=== PATIENT | male | born 1970 | race Hispanic/Latino ===

== ENCOUNTER 2017-01-19 12:13 | Observation (INO) | payer MEDICAID, OTHER ==
[2017-01-19 13:45] LABS: BASO % 0.2 % (0.0-2.0); EOS # 0.2 K/uL (0.0-0.7); EOS % 3.1 % (0.0-4.0); HEMATOCRIT 40.8 % (35.0-51.0); LYMPH # 1.6 K/uL (1.0-4.3); LYMPH % 27.7 % (20.0-40.0); MEAN CORPUSCULAR HEMOGLOBIN 31.1 pg (27.0-31.0); MEAN CORPUSCULAR HGB CONC 33.3 g/dL (33.0-37.0); MEAN PLATELET VOLUME 8.1 fl (7.2-11.7); MONO # 0.6 K/uL (0.0-0.8); MONO % 10.3 % (0.0-10.0); NEUT # 3.4 K/uL (1.8-7.0); NEUT % 58.7 % (50.0-75.0); RED CELL DISTRIBUTION WIDTH 13.9 % (11.5-14.5); WHITE BLOOD COUNT 5.7 K/uL (4.8-10.8)
[2017-01-19 13:55] LABS: MEAN CELL VOLUME 93.4 fl (80.0-94.0)
[2017-01-19 13:57] LABS: PARTIAL THROMBOPLASTIN TIME 24.6 Seconds (25.6-37.1)
[2017-01-19 13:59] LABS: ALB/GLOB RATIO 1.4 (1.0-2.1); ALKALINE PHOSPHATASE 133 U/L (38-126); ALT/SGPT 63 U/L (21-72); AST/SGOT 40 U/L (17-59); BILIRUBIN,TOTAL 0.5 mg/dl (0.2-1.3); BLOOD UREA NITROGEN 18 mg/dl (9-20); CALCIUM 9.1 mg/dL (8.4-10.2); CARBON DIOXIDE 26 mmol/L (22-30); CHLORIDE 107 mmol/L (98-107); GFR AFRICAN-AMERICAN > 60; GLUCOSE,RANDOM 94 mg/dL (75-110); POTASSIUM 3.9 MMOL/L (3.6-5.0); SODIUM 141 mmol/l (132-148); TOTAL PROTEIN 7.4 G/DL (6.3-8.2)
--- NOTE | 2017-01-19 16:19 | RAD ---
HISTORY: chest pain COMPARISON: Comparison chest dated 08/17/2014. Comparison also made with CT scan abdomen pelvis 11/10/2014 which imaged both lung bases TECHNIQUE: Chest PA and lateral FINDINGS: LUNGS: Mild linear atelectasis/scarring changes left mid to lower lung field and right lung base. PLEURA: No significant pleural effusion identified. No pneumothorax apparent. CARDIOVASCULAR: Normal. OSSEOUS STRUCTURES: Old healed fracture deformity left mid clavicle also unchanged. Re- demonstrated are several old healed right-sided rib fracture deformities VISUALIZED UPPER ABDOMEN: Linear calcification along the lateral margin of the splenic capsule on again noted unchanged core spell OTHER FINDINGS: None. IMPRESSION: Mild linear is atelectasis/scarring changes left mid to lower lung field and right lung base
--- NOTE | 2017-01-19 16:28 | ED PDOC ---
Lower Extremity Pain/Injury Time Seen by Provider: 01/19/17 12:35 Chief Complaint (Nursing): Lower Extremity Problem/Injury Chief Complaint (Provider): Chest pain, lower leg edema History Per: Patient History/Exam Limitations: no limitations Onset/Duration Of Symptoms: Days Current Symptoms Are (Timing): Still Present Severity: Moderate Pain Scale Rating Of: 5 Additional Complaint(s): Pt states he was discharged from assisted and was not given prescriptions. Pt states he he now having worsening pain in his lower legs and swelling. PT also reports chest pain. Pt states he thinks he is on something for BP and a water pill but does not know what. Denies SOB. Past Medical History Vital Signs: Last Vital Signs Temp 98.9 F 01/19/17 12:22 Pulse 121 H 01/19/17 12:22 Resp 20 01/19/17 12:22 BP 153/107 H 01/19/17 12:22 Pulse Ox 97 01/19/17 12:22 - Medical History PMH: Asthma, CAD, COPD, Fractures (skull, clavical, bilateral jaw, pelvis), Seizures Denies: Diabetes, Hepatitis, HIV, HTN, Chronic Kidney Disease, Sexually Transmitted Disease - Surgical History Surgical History: CABG - Family History Family History: States: Unknown Family Hx - Home Medications Home Medications: Ambulatory Orders Medication Instructions Recorded Phenytoin [Dilantin] 300 mg PO TID 12/29/15 - Allergies Allergies/Adverse Reactions: Allergies Allergy/AdvReac Type Severity Reaction Status Date / Time No Known Allergies Allergy Verified 01/19/17 12:21 Review of Systems ROS Statement: Except As Marked, All Systems Reviewed And Found Negative Cardiovascular: Positive for: Chest Pain Musculoskeletal: Positive for: Other (Lower leg edema ) Neurological: Positive for: Dizziness Physical Exam - Reviewed Nursing Documentation Reviewed: Yes Vital Signs Reviewed: Yes - Physical Exam Appears: Positive for: Well, Non-toxic, No Acute Distress Head Exam: Positive for: ATRAUMATIC, NORMAL INSPECTION, NORMOCEPHALIC Skin: Positive for: Warm. Negative for: Normal Color (Linear scar on chest ) Eye Exam: Positive for: Normal appearance ENT: Positive for: Normal ENT Inspection Neck: Positive for: Normal, Painless ROM Cardiovascular/Chest: Positive for: Regular Rate, Rhythm Respiratory: Positive for: Normal Breath Sounds. Negative for: Accessory Muscle Use, Respiratory Distress Gastrointestinal/Abdominal: Positive for: Normal Exam, Bowel Sounds, Soft Back: Positive for: Normal Inspection Extremity: Positive for: Normal ROM, Swelling (Bilateral edema ) Neurologic/Psych: Positive for: Alert, Oriented - Laboratory Results Result Diagrams: 01/19/17 13:40 01/19/17 13:40 - ECG O2 Sat by Pulse Oximetry: 97 Medical Decision Making Medical Decision Making: Vitals stable at 1630. OBS for chest pain Disposition - Clinical Impression Clinical Impression: Chest pain - Patient ED Disposition Is Patient to be Admitted: Yes Counseled Patient/Family Regarding: Diagnosis, Need For Followup - Disposition Disposition: Routine/Home Disposition Time: 16:28 Condition: GOOD - Pt Status Changed To: Hospital Disposition Of: Observation - POA Present On Arrival: None
[2017-01-19 17:30] LABS: RBC URINE 2 /hpf (0-3); URINE BACTERIA RARE (<OCC); URINE BILIRUBIN NEGATIVE (NEGATIVE); URINE BLOOD NEGATIVE (NEGATIVE); URINE COLOR YELLOW (YELLOW); URINE GLUCOSE (UA) NEG (Normal); URINE KETONE NEGATIVE (NEGATIVE); URINE LEUKOCYTE ESTERASE NEG Leu/uL (Negative); URINE PROTEIN NEGATIVE (NEGATIVE); URINE UROBILINOGEN 0.2-1.0 mg/dL (0.2-1.0); WBC URINE 1 /hpf (0-5)
--- NOTE | 2017-01-19 18:23 | CP.PCM.HP ---
History of Present Illness - History of Present Illness History of Present Illness: 46 yo male with history of Seizure recently [facility] from [facility] came in complaining of abdominal pain and leg swelling. He claimed he had a prescription for Dilantin and water pills and by the way he also has this sharp left sided chest pain since he was discharged from [facility]. Denied SOB, fever or chills. Present on Admission - Present on Admission Any Indicators Present on Admission: No History of DVT/PE: No History of Uncontrolled Diabetes: No Urinary Catheter: No Decubitus Ulcer Present: No Review of Systems - Review of Systems All systems: reviewed and no additional remarkable complaints except (aside from those mentioned above, 12 point system review were negative by me) Past Patient History - Tetanus Immunizations Tetanus Immunization: Unknown - Past Medical History & Family History Past Medical History?: Yes Past Family History: Reviewed and not pertinent - Past Social History Smoking Status: Light Smoker < 10 Cigarettes Daily Alcohol: Occasional Home Situation {Lives}: Homeless - CARDIAC Hx Hypertension: No Other/Comment: had open heart surgery for septal defect at 6 yrs of age - PULMONARY Hx Asthma: Yes Hx Chronic Obstructive Pulmonary Disease (COPD): Yes - NEUROLOGICAL Hx Seizures: Yes - HEENT Hx HEENT Problems: No - RENAL Hx Chronic Kidney Disease: No - ENDOCRINE/METABOLIC Hx Endocrine Disorders: No - HEMATOLOGICAL/ONCOLOGICAL Hx Human Immunodeficiency Virus (HIV): No - INTEGUMENTARY Hx Dermatological Problems: No - MUSCULOSKELETAL/RHEUMATOLOGICAL Hx Fractures: Yes (skull, clavical, bilateral jaw, pelvis, right femur) - GASTROINTESTINAL Hx Gastrointestinal Disorders: No - GENITOURINARY/GYNECOLOGICAL Hx Sexually Transmitted Disorders: No - PSYCHIATRIC Hx Psychophysiologic Disorder: Yes Hx Substance Use: No (Marijuana in chart, denies at this time) Other/Comment: ALCOHOL ABUSE. - SURGICAL HISTORY Hx Open Reduction Internal Fixation: Yes Hx Orthopedic Surgery: Yes Other/Comment: open heart surgery at 6yrs of age for septal defect repair - ANESTHESIA Hx Anesthesia: Yes Hx Anesthesia Reactions: No Hx Malignant Hyperthermia: No Meds Allergies/Adverse Reactions: Allergies Allergy/AdvReac Type Severity Reaction Status Date / Time No Known Allergies Allergy Verified 01/19/17 12:21 Physical Exam - Constitutional Appears: No Acute Distress - Head Exam Head Exam: ATRAUMATIC - Eye Exam Eye Exam: absent: Scleral icterus - ENT Exam ENT Exam: Mucous Membranes Moist - Neck Exam Neck exam: Negative for: Meningismus - Respiratory Exam Respiratory Exam: Decreased Breath Sounds. absent: Rhonchi, Wheezes, Respiratory Distress - Cardiovascular Exam Cardiovascular Exam: REGULAR RHYTHM, +S1, +S2 - GI/Abdominal Exam GI & Abdominal Exam: Soft. absent: Tenderness - Rectal Exam Rectal Exam: Deferred - Extremities Exam Extremities exam: Positive for: pedal edema (nonpitting edema of both legs) - Back Exam Back exam: NORMAL INSPECTION - Neurological Exam Neurological exam: Alert, Oriented x3 - Psychiatric Exam Psychiatric exam: Normal Affect - Skin Skin Exam: Dry, Intact Results - Vital Signs Recent Vital Signs: Last Vital Signs Temp 98 F 01/19/17 18:02 Pulse 96 H 01/19/17 18:02 Resp 18 01/19/17 18:02 BP 134/75 01/19/17 18:02 Pulse Ox 99 01/19/17 18:02 - Labs Result Diagrams: 01/19/17 13:40 01/19/17 13:40 Labs: Laboratory Results - last 24 hr 01/19/17 01/19/17 01/19/17 13:40 13:40 13:40 WBC 5.7 RBC 4.37 L Hgb 13.6 Hct 40.8 MCV 93.4 D MCH 31.1 H MCHC 33.3 RDW 13.9 Plt Count 176 MPV 8.1 Neut % (Auto) 58.7 Lymph % (Auto) 27.7 [place] % (Auto) 10.3 H Eos % (Auto) 3.1 Baso % (Auto) 0.2 Neut # 3.4 Lymph # 1.6 [place] # 0.6 Eos # 0.2 Baso # 0.0 PT 11.1 INR 1.1 APTT 24.6 L Sodium 141 Potassium 3.9 Chloride 107 Carbon Dioxide 26 Anion Gap 13 BUN 18 Creatinine 0.8 Est GFR ( Amer) > 60 Est GFR (Non-Af Amer) > 60 Random Glucose 94 Calcium 9.1 Total Bilirubin 0.5 AST 40 ALT 63 Alkaline Phosphatase 133 H D Troponin I < 0.0120 NT-Pro-B Natriuret Pep 62.4 Total Protein 7.4 Albumin 4.3 Globulin 3.2 Albumin/Globulin Ratio 1.4 Urine Color Urine Clarity Urine pH Ur Specific [place] Urine Protein Urine Glucose (UA) Urine Ketones Urine Blood Urine Nitrate Urine Bilirubin Urine Urobilinogen Ur Leukocyte Esterase Urine RBC (Auto) Urine Microscopic WBC Urine Bacteria Hyaline Casts Urine Opiates Screen Urine Methadone Screen Ur Barbiturates Screen Ur Phencyclidine Scrn Ur Amphetamines Screen U Benzodiazepines Scrn U Oth Cocaine Metabols U Cannabinoids Screen 01/19/17 01/19/17 17:05 17:05 WBC RBC Hgb Hct MCV MCH MCHC RDW Plt Count MPV Neut % (Auto) Lymph % (Auto) [place] % (Auto) Eos % (Auto) Baso % (Auto) Neut # Lymph # [place] # Eos # Baso # PT INR APTT Sodium Potassium Chloride Carbon Dioxide Anion Gap BUN Creatinine Est GFR ( Amer) Est GFR (Non-Af Amer) Random Glucose Calcium Total Bilirubin AST ALT Alkaline Phosphatase Troponin I NT-Pro-B Natriuret Pep Total Protein Albumin Globulin Albumin/Globulin Ratio Urine Color Yellow Urine Clarity Slighty-cloudy Urine pH 6.0 Ur Specific [place] 1.028 Urine Protein Negative Urine Glucose (UA) Neg Urine Ketones Negative Urine Blood Negative Urine Nitrate Negative Urine Bilirubin Negative Urine Urobilinogen 0.2-1.0 Ur Leukocyte Esterase Neg Urine RBC (Auto) 2 Urine Microscopic WBC 1 Urine Bacteria Rare Hyaline Casts 0-2 Urine Opiates Screen Negative Urine Methadone Screen Negative Ur Barbiturates Screen Negative Ur Phencyclidine Scrn Negative Ur Amphetamines Screen Negative U Benzodiazepines Scrn Negative U Oth Cocaine Metabols Negative U Cannabinoids Screen Negative Assessment & Plan (1) Chest pain Status: Acute Comment: place on observation in telemetry. serial Troponin and EKG. ASA 81 mg PO. NTG SL prn for chest pain (2) Seizure Status: Acute Comment: seizure precaution. Dilatin 100mg PO TID
[2017-01-20 00:50] VITALS: RESP 18
[2017-01-20 08:01] LABS: BASO % 0.8 % (0.0-2.0); EOS # 0.2 K/uL (0.0-0.7); EOS % 3.8 % (0.0-4.0); HEMATOCRIT 39.7 % (35.0-51.0); LYMPH # 1.8 K/uL (1.0-4.3); LYMPH % 35.7 % (20.0-40.0); MEAN CELL VOLUME 94.8 fl (80.0-94.0); MEAN CORPUSCULAR HEMOGLOBIN 31.4 pg (27.0-31.0); MEAN CORPUSCULAR HGB CONC 33.2 g/dL (33.0-37.0); MEAN PLATELET VOLUME 8.6 fl (7.2-11.7); MONO # 0.5 K/uL (0.0-0.8); MONO % 9.2 % (0.0-10.0); NEUT # 2.5 K/uL (1.8-7.0); NEUT % 50.5 % (50.0-75.0); RED CELL DISTRIBUTION WIDTH 13.7 % (11.5-14.5)
[2017-01-20 08:12] LABS: BLOOD UREA NITROGEN 15 mg/dl (9-20); CALCIUM 8.7 mg/dL (8.4-10.2); CARBON DIOXIDE 27 mmol/L (22-30); CHLORIDE 105 mmol/L (98-107); CHOLESTEROL 186 mg/dL (0-199); GFR AFRICAN-AMERICAN > 60; GLUCOSE,RANDOM 96 mg/dL (75-110); POTASSIUM 4.1 MMOL/L (3.6-5.0); SODIUM 140 mmol/l (132-148)
[2017-01-20 08:43] LABS: THYROID STIMULATING HORMONE 1.23 mIU/ML (0.46-4.68)
[2017-01-20 08:44] VITALS: TEMP 97.9
[2017-01-20] MEDS ORDERED: Enoxaparin 40 mg Syringe SC SCH (09:00)
--- NOTE | 2017-01-20 09:34 | US ---
PROCEDURE: Bilateral lower extremity venous duplex Doppler. HISTORY: leg edema COMPARISON: Comparison made with prior bilateral lower extremity venous Doppler 04/22/2013 TECHNIQUE: Bilateral common femoral, superficial femoral, popliteal and posterior tibial veins were evaluated. Flow was assessed with color Doppler, compressibility, assessment of phasic flow and augmentation response. FINDINGS: COMMON FEMORAL VEIN: Right CFV: Unremarkable. Left CFV: Unremarkable. SUPERFICIAL FEMORAL VEIN: Right SFV: Unremarkable. Left SFV: Unremarkable. POPLITEAL VEIN: Right Popliteal: Unremarkable. Left Popliteal: Unremarkable. POSTERIOR TIBIAL VEIN: Right PTV: Unremarkable. Left PTV: Unremarkable. OTHER FINDINGS: None. IMPRESSION: No evidence of deep venous thrombosis.
--- NOTE | 2017-01-20 10:19 | CARD ---
APPROVED REPORT EKG Measurement Heart [id number] <Conclusion> Sinus tachycardia Left axis deviation Abnormal ECG
[2017-01-20 12:08] VITALS: BP 123/80; PULSE 98; O2SAT 100
--- NOTE | 2017-01-20 14:05 | CP.PCM.DIS ---
Provider - Provider Date of Admission: 01/19/17 18:33 Attending physician: Jn Davis MD Time Spent in preparation of Discharge (in minutes): 30 Hospital Course - Lab Results Lab Results: Most Recent Lab Values WBC 5.0 K/uL (4.8-10.8) 01/20/17 05:30 RBC 4.19 Mil/uL (4.40-5.90) L 01/20/17 05:30 Hgb 13.2 g/dL (12.0-18.0) 01/20/17 05:30 Hct 39.7 % (35.0-51.0) 01/20/17 05:30 MCV 94.8 fl (80.0-94.0) H 01/20/17 05:30 MCH 31.4 pg (27.0-31.0) H 01/20/17 05:30 MCHC 33.2 g/dL (33.0-37.0) 01/20/17 05:30 RDW 13.7 % (11.5-14.5) 01/20/17 05:30 Plt Count 173 K/uL (130-400) 01/20/17 05:30 MPV 8.6 fl (7.2-11.7) 01/20/17 05:30 Neut % (Auto) 50.5 % (50.0-75.0) 01/20/17 05:30 Lymph % (Auto) 35.7 % (20.0-40.0) 01/20/17 05:30 [place] % (Auto) 9.2 % (0.0-10.0) 01/20/17 05:30 Eos % (Auto) 3.8 % (0.0-4.0) 01/20/17 05:30 Baso % (Auto) 0.8 % (0.0-2.0) 01/20/17 05:30 Neut # 2.5 K/uL (1.8-7.0) 01/20/17 05:30 Lymph # 1.8 K/uL (1.0-4.3) 01/20/17 05:30 [place] # 0.5 K/uL (0.0-0.8) 01/20/17 05:30 Eos # 0.2 K/uL (0.0-0.7) 01/20/17 05:30 Baso # 0.0 K/uL (0.0-0.2) 01/20/17 05:30 PT 11.1 Seconds (9.8-13.1) 01/19/17 13:40 INR 1.1 (0.9-1.2) 01/19/17 13:40 APTT 24.6 Seconds (25.6-37.1) L 01/19/17 13:40 Sodium 140 mmol/l (132-148) 01/20/17 05:30 Potassium 4.1 MMOL/L (3.6-5.0) 01/20/17 05:30 Chloride 105 mmol/L (98-107) 01/20/17 05:30 Carbon Dioxide 27 mmol/L (22-30) 01/20/17 05:30 Anion Gap 11 (10-20) 01/20/17 05:30 BUN 15 mg/dl (9-20) 01/20/17 05:30 Creatinine 0.8 mg/dL (0.8-1.5) 01/20/17 05:30 Est GFR ( Amer) > 60 01/20/17 05:30 Est GFR (Non-Af Amer) > 60 01/20/17 05:30 Random Glucose 96 mg/dL (75-110) 01/20/17 05:30 Calcium 8.7 mg/dL (8.4-10.2) 01/20/17 05:30 Total Bilirubin 0.5 mg/dl (0.2-1.3) 01/19/17 13:40 AST 40 U/L (17-59) 01/19/17 13:40 ALT 63 U/L (21-72) 01/19/17 13:40 Alkaline Phosphatase 133 U/L (38-126) H D 01/19/17 13:40 Troponin I < 0.0120 ng/mL (0.00-0.120) 01/20/17 05:30 NT-Pro-B Natriuret Pep 62.4 pg/ml (0-450) 01/19/17 13:40 Total Protein 7.4 G/DL (6.3-8.2) 01/19/17 13:40 Albumin 4.3 g/dL (3.5-5.0) 01/19/17 13:40 Globulin 3.2 gm/dL (2.2-3.9) 01/19/17 13:40 Albumin/Globulin Ratio 1.4 (1.0-2.1) 01/19/17 13:40 Triglycerides 115 mg/DL (0-149) 01/20/17 05:30 Cholesterol 186 mg/dL (0-199) 01/20/17 05:30 LDL Cholesterol Direct 111 mg/dL (0-129) 01/20/17 05:30 HDL Cholesterol 49 MG/DL (30-70) 01/20/17 05:30 TSH 3rd Generation 1.23 mIU/ML (0.46-4.68) 01/20/17 05:30 Urine Color Yellow (YELLOW) 01/19/17 17:05 Urine Clarity Slighty-cloudy (Clear) 01/19/17 17:05 Urine pH 6.0 (5.0-8.0) 01/19/17 17:05 Ur Specific [place] 1.028 (1.003-1.030) 01/19/17 17:05 Urine Protein Negative mg/dL (NEGATIVE) 01/19/17 17:05 Urine Glucose (UA) Neg mg/dL (Normal) 01/19/17 17:05 Urine Ketones Negative mg/dL (NEGATIVE) 01/19/17 17:05 Urine Blood Negative (NEGATIVE) 01/19/17 17:05 Urine Nitrate Negative (NEGATIVE) 01/19/17 17:05 Urine Bilirubin Negative (NEGATIVE) 01/19/17 17:05 Urine Urobilinogen 0.2-1.0 mg/dL (0.2-1.0) 01/19/17 17:05 Ur Leukocyte Esterase Neg Efra/uL (Negative) 01/19/17 17:05 Urine RBC (Auto) 2 /hpf (0-3) 01/19/17 17:05 Urine Microscopic WBC 1 /hpf (0-5) 01/19/17 17:05 Urine Bacteria Rare (<OCC) 01/19/17 17:05 Hyaline Casts 0-2 /hpf (0-2) 01/19/17 17:05 Urine Opiates Screen Negative (NEGATIVE) 01/19/17 17:05 Urine Methadone Screen Negative (NEGATIVE) 01/19/17 17:05 Ur Barbiturates Screen Negative (NEGATIVE) 01/19/17 17:05 Ur Phencyclidine Scrn Negative (NEGATIVE) 01/19/17 17:05 Ur Amphetamines Screen Negative (NEGATIVE) 01/19/17 17:05 U Benzodiazepines Scrn Negative (NEGATIVE) 01/19/17 17:05 U Oth Cocaine Metabols Negative (NEGATIVE) 01/19/17 17:05 U Cannabinoids Screen Negative (NEGATIVE) 01/19/17 17:05 - Hospital Course Hospital Course: 46 yo male with history of Seizure recently [facility] came in complaining of abdominal pain and leg swelling. He claimed he had a prescription for Dilantin and water pills and by the way he also has this sharp left sided chest pain since he was discharged from [facility]. Denied SOB, fever or chills. (1) Chest pain Status: Acute Comment: place on observation in telemetry. serial Troponin and EKG. ASA 81 mg PO. NTG SL prn for chest pain CARDIAC ENZYMES NEGATIVE. EKG NO ACUTE ISCH OR INFARCT. NO ACTIVE CHEST PAIN STABLE TO BE DISCHARGED HOME. (2) Seizure Status: Acute Comment: seizure precaution. Dilatin 100mg PO TID Discharge Exam - Head Exam Head Exam: ATRAUMATIC, NORMOCEPHALIC - Eye Exam Eye Exam: EOMI, Normal appearance, PERRL - ENT Exam ENT Exam: Mucous Membranes Moist, Normal Oropharynx - Neck Exam Neck exam: Full Rom, Normal Inspection - Respiratory Exam Respiratory Exam: Clear to PA & Lateral, NORMAL BREATHING PATTERN - Cardiovascular Exam Cardiovascular Exam: RRR, +S1, +S2 - GI/Abdominal Exam GI & Abdominal Exam: Normal Bowel Sounds, Soft. absent: Organomegaly, Tenderness - Extremities Exam Extremities exam: normal capillary refill, pedal pulses present - Neurological Exam Neurological exam: Alert, Oriented x3 - Psychiatric Exam Psychiatric exam: Normal Affect, Normal Mood - Skin Skin Exam: Dry, Normal Color, Warm Discharge Plan - Discharge Medications Prescriptions: Aspirin [Aspirin Chewable] 81 mg PO DAILY #30 tab Meclizine [Meclizine*] 25 mg PO DAILY #30 tab Phenytoin, Extended [Dilantin] 100 mg PO TID #90 cer - Follow Up Plan Condition: GOOD Disposition: HOME/ ROUTINE
== END 2017-01-20 14:35 | disposition home or self-care (01) ==
LOC: H.ER 12:13 → H.ERHOLD 18:33 → H.TEL 21:07
DX: R07.9 Chest pain, unspecified (principal); J45.909 Unspecified asthma, uncomplicated; J44.9 Chronic obstructive pulmonary disease, unspecified; I25.10 Atherosclerotic heart disease of native coronary artery without angina pectoris; Z59.0 Homelessness; Z95.1 Presence of aortocoronary bypass graft; F17.210 Nicotine dependence, cigarettes, uncomplicated; G40.909 Epilepsy, unspecified, not intractable, without status epilepticus
CPT/HCPCS: 36415; 71020; 80048; 80053; 80061; 80324; 80345; 80346; 80349; 80353; 80358; 80361; 81003; 83880; 83992; 84443; 84484; 85025; 85610; 85730; 87086; 93005; 93970; 99285; G0378; J1650

== ENCOUNTER 2017-01-23 10:46 | Emergency (ER) | payer MEDICAID ==
[2017-01-23 10:50] VITALS: BMI 34.4
[2017-01-23 10:51] VITALS: BP 124/79; RESP 20
[2017-01-23 10:59] VITALS: PULSE 104; TEMP 99; O2SAT 98
--- NOTE | 2017-01-23 11:24 | ED PDOC ---
HPI: General Adult Time Seen by Provider: 01/23/17 11:01 Chief Complaint (Nursing): Pain, Chronic History Per: Patient Additional Complaint(s): Pt. states he was discharged from [facility] ED 3 days ago for chest pain and was dc' d with Rx for Dilantin for his seizures. Pt. states he has been unable to get the medicines but reports that his pharmacy does have the prescription. Of note , pt. is homeless and just got released from incarceration. Offers no other complaints. Pt. is requesting meds to prevent seizure. Past Medical History Reviewed: Historical Data, Nursing Documentation, Vital Signs Vital Signs: Last Vital Signs Temp 99 F 01/23/17 10:55 Pulse 104 H 01/23/17 10:55 Resp 20 01/23/17 10:55 BP 124/79 01/23/17 10:55 Pulse Ox 98 01/23/17 10:55 - Medical History PMH: Asthma, CAD, COPD, Fractures (skull, clavical, bilateral jaw, pelvis, right femur), Seizures Denies: Diabetes, Hepatitis, HIV, HTN, Chronic Kidney Disease, Sexually Transmitted Disease - Surgical History Surgical History: CABG - Family History Family History: States: Unknown Family Hx - Home Medications Home Medications: Ambulatory Orders Medication Instructions Recorded Aspirin [Aspirin Chewable] 81 mg PO DAILY #30 tab 01/20/17 Meclizine [Meclizine*] 25 mg PO DAILY #30 tab 01/20/17 Phenytoin, Extended [Dilantin] 100 mg PO TID #90 cer 01/20/17 - Allergies Allergies/Adverse Reactions: Allergies Allergy/AdvReac Type Severity Reaction Status Date / Time No Known Allergies Allergy Verified 01/23/17 10:53 Review of Systems ROS Statement: Except As Marked, All Systems Reviewed And Found Negative Physical Exam - Physical Exam Appears: Positive for: Well, Non-toxic, No Acute Distress Head Exam: Positive for: ATRAUMATIC, NORMAL INSPECTION, NORMOCEPHALIC Skin: Positive for: Normal Color, Warm. Negative for: Rash Eye Exam: Positive for: Normal appearance Neck: Positive for: Normal, Painless ROM Cardiovascular/Chest: Positive for: Regular Rate, Rhythm Respiratory: Positive for: CNT, Normal Breath Sounds Gastrointestinal/Abdominal: Positive for: Normal Exam, Soft. Negative for: Tenderness Extremity: Positive for: Normal ROM Neurologic/Psych: Positive for: Alert, Oriented - ECG O2 Sat by Pulse Oximetry: 98 - Progress ED Course And Treament: Dilantin 100mg PO ordered. Disposition - Clinical Impression Clinical Impression: Seizure disorder - Patient ED Disposition Is Patient to be Admitted: No - Disposition Referrals: [facility] [Outside] Disposition: Routine/Home Disposition Time: 11:25 Condition: STABLE Instructions: Epilepsy (ED) Forms: LK FREEMAN (Nigerien)
== END 2017-01-23 12:26 | disposition home or self-care (01) ==
LOC: H.ER 10:46
DX: G40.909 Epilepsy, unspecified, not intractable, without status epilepticus (principal)

== ENCOUNTER 2017-01-24 15:07 | Emergency (ER) | payer MEDICAID ==
[2017-01-24 15:07] VITALS: BMI 34.4
[2017-01-24 15:17] VITALS: BP 150/87; PULSE 106; RESP 16; TEMP 98.2; O2SAT 99
== END 2017-01-24 16:21 | disposition left against medical advice (07) ==
LOC: H.ER 15:07
DX: Z02.89 Encounter for other administrative examinations (principal)

== ENCOUNTER 2017-01-31 12:19 | Emergency (ER) | payer MEDICAID ==
[2017-01-31 12:20] VITALS: BMI 34.4
[2017-01-31 12:26] VITALS: RESP 18; TEMP 99; O2SAT 97
[2017-01-31] MEDS ORDERED: Fosphenytoin 100 mg/2 ml Inj IV ONE (12:42)
--- NOTE | 2017-01-31 12:43 | ED PDOC ---
Lower Extremity Pain/Injury Time Seen by Provider: 01/31/17 12:30 Chief Complaint (Nursing): Dizziness/Lightheaded Chief Complaint (Provider): Dizziness/Lightheaded History Per: Patient History/Exam Limitations: no limitations Onset/Duration Of Symptoms: Days (x2 years) Current Symptoms Are (Timing): Still Present Additional Complaint(s): 46 y.o male with a past medical history of seizures, non compliance with medications for a number of weaks, who presents to the emergency department with a complaint of swelling to the lower legs bilaterally x2 years. Denies chest pain, shortness of breath, or fever. Past Medical History Reviewed: Historical Data, Nursing Documentation, Vital Signs Vital Signs: Last Vital Signs Temp 99 F 01/31/17 12:23 Pulse 118 H 01/31/17 12:23 Resp 18 01/31/17 12:23 BP 145/78 01/31/17 12:23 Pulse Ox 97 01/31/17 12:23 - Medical History PMH: Asthma, CAD, COPD, Fractures (skull, clavical, bilateral jaw, pelvis, right femur), Seizures Denies: Diabetes, Hepatitis, HIV, HTN, Chronic Kidney Disease, Sexually Transmitted Disease - Surgical History Surgical History: CABG - Family History Family History: States: Unknown Family Hx - Home Medications Home Medications: Ambulatory Orders Medication Instructions Recorded Aspirin [Aspirin Chewable] 81 mg PO DAILY #30 tab 01/20/17 Meclizine [Meclizine*] 25 mg PO DAILY #30 tab 01/20/17 Phenytoin, Extended [Dilantin] 100 mg PO TID #90 cer 01/20/17 - Allergies Allergies/Adverse Reactions: Allergies Allergy/AdvReac Type Severity Reaction Status Date / Time No Known Allergies Allergy Verified 01/23/17 10:53 Review of Systems ROS Statement: Except As Marked, All Systems Reviewed And Found Negative Constitutional: Negative for: Fever Cardiovascular: Negative for: Chest Pain Respiratory: Negative for: Shortness of Breath Musculoskeletal: Positive for: Other (Lower leg swelling b/l) Physical Exam - Reviewed Nursing Documentation Reviewed: Yes Vital Signs Reviewed: Yes - Physical Exam Appears: Positive for: Non-toxic, No Acute Distress Head Exam: Positive for: ATRAUMATIC, NORMAL INSPECTION, NORMOCEPHALIC Skin: Positive for: Normal Color, Warm, Dry Neck: Positive for: Normal, Supple Cardiovascular/Chest: Positive for: Regular Rate, Rhythm. Negative for: Murmur Respiratory: Positive for: Normal Breath Sounds. Negative for: Accessory Muscle Use, Rales, Rhonchi, Wheezing, Respiratory Distress Gastrointestinal/Abdominal: Positive for: Normal Exam, Soft. Negative for: Tenderness Extremity: Positive for: Pedal Edema (2+ edema to the lower extrm b/l ). Negative for: Calf Tenderness (b/l) Neurologic/Psych: Positive for: Alert, Oriented (x3) - Laboratory Results Result Diagrams: 01/31/17 14:15 01/31/17 14:15 - ECG O2 Sat by Pulse Oximetry: 97 (RA) Pulse Ox Interpretation: Normal Medical Decision Making Medical Decision Making: Time: 12:40 Initial impression: Swelling of lower legs Initial plan: --EKG --PROBNP --CMP --Urine DIP --CBC w/ diff --Chest x-ray --Cerebyx 1,000 mg IV --Duplex Extrm Bilat US --Reevaluation Time: 13:22 --Chest x-ray FINDINGS: LUNGS: Suspect left mid to lower lung field atelectasis or scarring. No evidence of lindsey pulmonary edema. PLEURA: No significant pleural effusion identified. No pneumothorax apparent. CARDIOVASCULAR: [place] Heart size within range of normal. OSSEOUS STRUCTURES: Re- demonstrated are several old healed right upper posterolateral rib fracture deformities again noted unchanged VISUALIZED UPPER ABDOMEN: Normal. OTHER FINDINGS: None. IMPRESSION: Suspect minor left mid to lower lung field atelectasis and or scarring Time: 13:58 --Duplex US FINDINGS: COMMON FEMORAL VEIN: Right CFV: Unremarkable. Left CFV: Unremarkable. SUPERFICIAL FEMORAL VEIN: Right SFV: Unremarkable. Left SFV: Unremarkable. POPLITEAL VEIN: Right Popliteal: Unremarkable. Left Popliteal: Unremarkable. POSTERIOR TIBIAL VEIN: Right PTV: Unremarkable. Left PTV: Unremarkable. OTHER FINDINGS: Note made of mild subcutaneous edema at the level of the ankles bilaterally nonspecific. Note made of small bilateral inguinal lymph nodes nonspecific. . IMPRESSION: No evidence of deep venous thrombosis. . Subcutaneous edema at the level of the ankles. Clinic correlation recommended. Scribe Attestation: Documented by Ann Wlilson, acting as a scribe for Felix Balderas MD. Provider Scribe Attestation: All medical record entries made by the Scribe were at my direction and personally dictated by me. I have reviewed the chart and agree that the record accurately reflects my personal performance of the history, physical exam, medical decision making, and the department course for this patient. I have also personally directed, reviewed, and agree with the discharge instructions and disposition. Disposition - Clinical Impression Clinical Impression: Leg swelling - Patient ED Disposition Is Patient to be Admitted: Transfer of Care - Disposition Disposition: Transfer of Care Disposition Time: 15:04 Condition: FAIR Forms: FabAlley (Zambian) Patient Signed Over To: Leroy Moreira
--- NOTE | 2017-01-31 13:24 | RAD ---
HISTORY: lower ext edema COMPARISON: No prior. TECHNIQUE: Chest PA and lateral FINDINGS: LUNGS: Suspect left mid to lower lung field atelectasis or scarring. No evidence of lindsey pulmonary edema. PLEURA: No significant pleural effusion identified. No pneumothorax apparent. CARDIOVASCULAR: [place] Heart size within range of normal. OSSEOUS STRUCTURES: Re- demonstrated are several old healed right upper posterolateral rib fracture deformities again noted unchanged VISUALIZED UPPER ABDOMEN: Normal. OTHER FINDINGS: None. IMPRESSION: Suspect minor left mid to lower lung field atelectasis and or scarring
--- NOTE | 2017-01-31 13:59 | US ---
PROCEDURE: Bilateral lower extremity venous duplex Doppler. HISTORY: Bilat swelling COMPARISON: None available. TECHNIQUE: Bilateral common femoral, superficial femoral, popliteal and posterior tibial veins were evaluated. Flow was assessed with color Doppler, compressibility, assessment of phasic flow and augmentation response. FINDINGS: COMMON FEMORAL VEIN: Right CFV: Unremarkable. Left CFV: Unremarkable. SUPERFICIAL FEMORAL VEIN: Right SFV: Unremarkable. Left SFV: Unremarkable. POPLITEAL VEIN: Right Popliteal: Unremarkable. Left Popliteal: Unremarkable. POSTERIOR TIBIAL VEIN: Right PTV: Unremarkable. Left PTV: Unremarkable. OTHER FINDINGS: Note made of mild subcutaneous edema at the level of the ankles bilaterally nonspecific. Note made of small bilateral inguinal lymph nodes nonspecific. . IMPRESSION: No evidence of deep venous thrombosis. . Subcutaneous edema at the level of the ankles. Clinic correlation recommended.
[2017-01-31 14:51] LABS: EOS # 0.1 K/uL (0.0-0.7); EOS % 3.3 % (0.0-4.0); HEMATOCRIT 42.9 % (35.0-51.0); LYMPH # 0.6 K/uL (1.0-4.3); LYMPH % 16.5 % (20.0-40.0); MEAN CELL VOLUME 95.1 fl (80.0-94.0); MEAN CORPUSCULAR HEMOGLOBIN 30.9 pg (27.0-31.0); MEAN CORPUSCULAR HGB CONC 32.5 g/dL (33.0-37.0); MEAN PLATELET VOLUME 8.5 fl (7.2-11.7); MONO # 0.6 K/uL (0.0-0.8); MONO % 17.1 % (0.0-10.0); NEUT # 2.3 K/uL (1.8-7.0); NEUT % 62.1 % (50.0-75.0); WHITE BLOOD COUNT 3.7 K/uL (4.8-10.8)
[2017-01-31 14:55] LABS: ALB/GLOB RATIO 1.3 (1.0-2.1); ALKALINE PHOSPHATASE 110 U/L (38-126); ALT/SGPT 59 U/L (21-72); AST/SGOT 41 U/L (17-59); BILIRUBIN,TOTAL 0.5 mg/dl (0.2-1.3); BLOOD UREA NITROGEN 15 mg/dl (9-20); CALCIUM 9.1 mg/dL (8.4-10.2); CARBON DIOXIDE 27 mmol/L (22-30); CHLORIDE 103 mmol/L (98-107); GFR AFRICAN-AMERICAN > 60; GLUCOSE,RANDOM 91 mg/dL (75-110); POTASSIUM 4.8 MMOL/L (3.6-5.0); SODIUM 137 mmol/l (132-148); TOTAL PROTEIN 7.3 G/DL (6.3-8.2)
--- NOTE | 2017-01-31 15:38 | ED PDOC ---
- Laboratory Results Result Diagrams: 01/31/17 14:15 01/31/17 14:15 Interpretation Of Abn Labs: no acute - ECG ECG: Positive for: Interpreted By Me, Viewed By Me ECG Rhythm: Positive for: Normal QRS, Normal ST Segment, Sinus Rhythm O2 Sat by Pulse Oximetry: 97 (RA) Pulse Ox Interpretation: Normal - Radiology X-Ray: Read By Radiologist X-Ray Interpretation: No Acute Disease - CT Scan/US US Other Rad Studies (CT/US): Read By Radiologist Other Rad Interpretation: no dvt - Progress ED Course And Treament: 1500: Took over care from Dr. Balderas. Fu on labs and imaging. Here with feet swelling. No dyspnea at any time. 1537: Stable. AAOx3. Pain free. Tolerated PO. Ambulated with no issues. No dyspnea. Fu with pcp. Chronic leg swelling. Disposition - Clinical Impression Clinical Impression: Leg swelling - POA Present On Arrival: None - Disposition Referrals: [facility] [Outside] - 02/01/17 Disposition: Routine/Home Disposition Time: 15:39 Condition: STABLE Additional Instructions: Return if not better in 3 days. Instructions: Leg Edema (ED)
[2017-01-31 17:37] VITALS: BP 140/70; PULSE 92
--- NOTE | 2017-01-31 23:35 | CARD ---
APPROVED REPORT EKG Measurement Heart [id number] <Conclusion> Normal sinus rhythm Normal ECG
== END 2017-01-31 17:34 | disposition home or self-care (01) ==
LOC: H.ER 12:19
DX: R60.0 Localized edema (principal); I25.10 Atherosclerotic heart disease of native coronary artery without angina pectoris; Z79.82 Long term (current) use of aspirin; Z95.1 Presence of aortocoronary bypass graft
CPT/HCPCS: 71020; 80053; 83880; 85025; 93005; 93970; 96374; 99284; Q2009

== ENCOUNTER 2017-02-01 17:40 | Emergency (ER) | payer MEDICAID ==
[2017-02-01 17:40] VITALS: BMI 34.4
--- NOTE | 2017-02-01 19:13 | ED PDOC ---
HPI: Seizure Time Seen by Provider: 02/01/17 17:57 Chief Complaint (Nursing): Seizure Chief Complaint (Provider): Seizure History Per: Patient History/Exam Limitations: no limitations Length Of Seizures (Duration): Unknown Associated Symptoms: Bit Tongue Additional Complaint(s): Alonzo Aguilar is a 46 year old male who presents to the emergency department for an evaluation status post generalized tonic clonic seizure associated with biting tongue and dizziness occuring at 04:00 today. Patient stated that he has a pending appointment with the clinic next week to begin seizure treatment but concerned he might not be able to afford medication. He was recently seen in ED yesterday, 01/31/17, for chronic leg edema and given IV Cerebyx in visit. PMD: none provided Past Medical History Reviewed: Historical Data, Nursing Documentation, Vital Signs Vital Signs: Last Vital Signs Temp 99.1 F 02/01/17 19:29 Pulse 101 H 02/01/17 19:29 Resp 16 02/01/17 19:29 BP 133/87 02/01/17 19:29 Pulse Ox 98 02/01/17 19:29 - Medical History PMH: Asthma, CAD, COPD, Fractures (skull, clavical, bilateral jaw, pelvis, right femur), Seizures Denies: Diabetes, Hepatitis, HIV, HTN, Chronic Kidney Disease, Sexually Transmitted Disease - Surgical History Surgical History: CABG - Family History Family History: States: Unknown Family Hx - Social History Current smoker - smoking cessation education provided: Yes Alcohol: Occasional - Home Medications Home Medications: Ambulatory Orders Medication Instructions Recorded Aspirin [Aspirin Chewable] 81 mg PO DAILY #30 tab 01/20/17 Meclizine [Meclizine*] 25 mg PO DAILY #30 tab 01/20/17 Phenytoin, Extended [Dilantin] 100 mg PO TID #90 cer 01/20/17 - Allergies Allergies/Adverse Reactions: Allergies Allergy/AdvReac Type Severity Reaction Status Date / Time No Known Allergies Allergy Verified 01/23/17 10:53 Review of Systems ROS Statement: Except As Marked, All Systems Reviewed And Found Negative Cardiovascular: Positive for: Edema, Light Headedness Neurological: Positive for: Seizures (tonic clonic; bit tongue), Dizziness Physical Exam - Reviewed Nursing Documentation Reviewed: Yes Vital Signs Reviewed: Yes - Physical Exam Appears: Positive for: Non-toxic, No Acute Distress (unkempt, dissheveled) Head Exam: Positive for: ATRAUMATIC, NORMOCEPHALIC Skin: Positive for: Warm, Dry Eye Exam: Positive for: EOMI, PERRL ENT: Positive for: Pharynx Is (clear), Other (superficial tongue abrasion RIGHT lateral) Neck: Positive for: Painless ROM, Supple Cardiovascular/Chest: Positive for: Regular Rate, Rhythm, Chest Non Tender, Edema. Negative for: Murmur Respiratory: Positive for: Rhonchi. Negative for: Accessory Muscle Use, Respiratory Distress Gastrointestinal/Abdominal: Positive for: Soft. Negative for: Tenderness Extremity: Positive for: Pedal Edema, Swelling (bilateral lower leg edema with chronic appearing ruddiness of skin) Lymphatic: Negative for: Adenopathy Neurologic/Psych: Positive for: Alert, vp patient II-XII (grossly intact), Oriented, Mood/Affect (anxious affect). Negative for: Motor/Sensory Deficits - ECG O2 Sat by Pulse Oximetry: 100 (RA) Pulse Ox Interpretation: Normal Medical Decision Making Medical Decision Making: Initial Impression: Seizure disorder Initial Plan: * Cerebyx 100ml IV Pt given earlier appointment and advised to follow up with social service early next week when office is open for assistance with prescriptions. Scribe Attestation: Documented by Yenny Sellers, acting as a scribe for Savannah Traylor MD. Provider Scribe Attestation: All medical record entries made by the Scribe were at my direction and personally dictated by me. I have reviewed the chart and agree that the record accurately reflects my personal performance of the history, physical exam, medical decision making, and the department course for this patient. I have also personally directed, reviewed, and agree with the discharge instructions and disposition. Disposition - Clinical Impression Clinical Impression: Generalized seizure - Disposition Referrals: [facility] [Outside] - 02/11/17 1:00 pm (A NEW APPOINTMENT WAS SETUP FOR YOU ON . PLEASE ALSO VISIT SOCIAL SERVICE OFFICE ON SATURDAY FOR ANY HELP WITH PRESCRIPTION COVERAGE ) Disposition: Routine/Home Disposition Time: 19:30 Condition: STABLE Instructions: Epilepsy (ED) Forms: [employer] (Urdu)
[2017-02-01 19:30] VITALS: BP 133/87; PULSE 101; RESP 16; TEMP 99.1
[2017-02-02 15:57] VITALS: O2SAT 100
== END 2017-02-01 21:49 | disposition home or self-care (01) ==
LOC: H.ER 17:40
DX: G40.909 Epilepsy, unspecified, not intractable, without status epilepticus (principal); I25.10 Atherosclerotic heart disease of native coronary artery without angina pectoris; Z79.82 Long term (current) use of aspirin; Z95.1 Presence of aortocoronary bypass graft
CPT/HCPCS: 80185; 96374; 99285; Q2009

== ENCOUNTER 2017-02-04 15:07 | Emergency (ER) | payer MEDICAID ==
[2017-02-04 15:08] VITALS: BMI 34.4
[2017-02-04 15:16] VITALS: BP 155/77; PULSE 116; RESP 16; TEMP 97.8; O2SAT 97
--- NOTE | 2017-02-04 15:18 | ED PDOC ---
HPI: General Adult Time Seen by Provider: 02/04/17 15:17 Chief Complaint (Nursing): Med Refill Chief Complaint (Provider): med refill History Per: Patient Additional Complaint(s): Patient is non-domiciled male who presents to emergency department requesting refill for Dilantin. Patient states his last seizure was one week ago. He offers no acute medical complaints at this time. Past Medical History Reviewed: Historical Data, Nursing Documentation, Vital Signs Vital Signs: Last Vital Signs Temp 97.8 F 02/04/17 15:12 Pulse 116 H 02/04/17 15:12 Resp 16 02/04/17 15:12 BP 155/77 H 02/04/17 15:12 Pulse Ox 97 02/04/17 15:56 - Medical History PMH: Asthma, CAD, COPD, Seizures - Surgical History Other surgeries: Heart valve replacement - Family History Family History: States: No Known Family Hx - Living Arrangements Living Arrangements: With Family - Social History Current smoker - smoking cessation education provided: Yes Alcohol: Social Drugs: Denies - Home Medications Home Medications: Ambulatory Orders Medication Instructions Recorded Aspirin [Aspirin Chewable] 81 mg PO DAILY #30 tab 01/20/17 Meclizine [Meclizine*] 25 mg PO DAILY #30 tab 01/20/17 Phenytoin, Extended [Dilantin] 100 mg PO TID #90 cer 01/20/17 Phenytoin, Extended [Dilantin 100 mg PO TID #90 tab 02/04/17 Kapseals] - Allergies Allergies/Adverse Reactions: Allergies Allergy/AdvReac Type Severity Reaction Status Date / Time No Known Allergies Allergy Verified 01/23/17 10:53 Review of Systems ROS Statement: Except As Marked, All Systems Reviewed And Found Negative Constitutional: Negative for: Fever Cardiovascular: Negative for: Chest Pain Respiratory: Negative for: Cough Gastrointestinal: Negative for: Nausea, Vomiting Neurological: Positive for: Other (needs refill of dilantin). Negative for: Headache, Dizziness Physical Exam - Reviewed Nursing Documentation Reviewed: Yes Vital Signs Reviewed: Yes - Physical Exam Appears: Positive for: Well, Non-toxic, No Acute Distress Skin: Negative for: Rash Eye Exam: Positive for: Normal appearance, EOMI, PERRL Cardiovascular/Chest: Positive for: Regular Rate, Rhythm Respiratory: Positive for: Normal Breath Sounds Neurologic/Psych: Positive for: Alert, Oriented, Gait (steady) - ECG O2 Sat by Pulse Oximetry: 97 Pulse Ox Interpretation: Normal Medical Decision Making Medical Decision Makin46 year old here for med refill PO dilantin 100 mg given in ED along with rx for same. Patient was referred to clinic for follow up. Disposition - Clinical Impression Clinical Impression: Prescription refill - Patient ED Disposition Is Patient to be Admitted: No Counseled Patient/Family Regarding: Diagnosis, Need For Followup, Rx Given - Disposition Referrals: [facility] [Outside] Disposition: Routine/Home Disposition Time: 15:35 Condition: STABLE Additional Instructions: TAKE RX MEDS DIRECTED. FOLLOW UP WITH CLINIC. Prescriptions: Phenytoin, Extended [Dilantin Kapseals] 100 mg PO TID #90 tab Instructions: Medicine Refill (ED) Forms: [employer] (Turkish)
== END 2017-02-04 15:59 | disposition home or self-care (01) ==
LOC: H.ER 15:07
DX: Z76.0 Encounter for issue of repeat prescription (principal)

== ENCOUNTER 2017-02-06 17:30 | Emergency (ER) | payer MEDICAID ==
[2017-02-06 17:30] VITALS: BMI 34.4
[2017-02-06 17:39] VITALS: BP 129/94; PULSE 118; RESP 16; TEMP 98.6; O2SAT 100
[2017-02-06] MEDS ORDERED: Sodium Chloride 0.9% 1,000 ML IV STA (17:56)
--- NOTE | 2017-02-06 18:08 | ED PDOC ---
HPI: CCC, URI, Sore Throat Time Seen by Provider: 02/06/17 17:48 Chief Complaint (Nursing): Abdominal Pain Chief Complaint (Provider): Throat pain History Per: Patient History/Exam Limitations: no limitations Onset/Duration Of Symptoms: Days (x2) Current Symptoms Are (Timing): Still Present Additional Complaint(s): Alonzo Aguilar is a 46 year old male who presents to the emergency department with a complaint of throat pain associated with abdominal pain status post sleeping in the rain last night. Denied any fever, chills, vomiting or diarrhea. PMD: none provided Past Medical History Reviewed: Historical Data, Nursing Documentation, Vital Signs Vital Signs: Last Vital Signs Temp 98.6 F 02/06/17 17:36 Pulse 118 H 02/06/17 17:36 Resp 16 02/06/17 17:36 BP 129/94 H 02/06/17 17:36 Pulse Ox 100 02/06/17 19:31 - Medical History PMH: Asthma, CAD, COPD, Fractures (skull, clavical, bilateral jaw, pelvis, right femur), Seizures Denies: Diabetes, Hepatitis, HIV, HTN, Chronic Kidney Disease, Sexually Transmitted Disease - Surgical History Surgical History: CABG - Family History Family History: States: Unknown Family Hx - Social History Current smoker - smoking cessation education provided: Yes Alcohol: Occasional - Home Medications Home Medications: Ambulatory Orders Medication Instructions Recorded Phenytoin, Extended [Dilantin 100 mg PO TID #90 tab 02/04/17 Kapseals] Ibuprofen [Motrin] 600 mg PO Q6H PRN #20 tab 02/06/17 - Allergies Allergies/Adverse Reactions: Allergies Allergy/AdvReac Type Severity Reaction Status Date / Time No Known Allergies Allergy Verified 02/06/17 17:36 Review of Systems ROS Statement: Except As Marked, All Systems Reviewed And Found Negative Constitutional: Negative for: Fever, Chills ENT: Positive for: Throat Pain Gastrointestinal: Positive for: Abdominal Pain. Negative for: Vomiting, Diarrhea Physical Exam - Reviewed Nursing Documentation Reviewed: Yes Vital Signs Reviewed: Yes - Physical Exam Appears: Positive for: Well, Non-toxic, No Acute Distress Head Exam: Positive for: ATRAUMATIC, NORMAL INSPECTION, NORMOCEPHALIC ENT: Positive for: Normal ENT Inspection, Pharynx Is (within normal limits). Negative for: Pharyngeal Erythema, Tonsillar Exudate Neck: Positive for: Normal, Painless ROM, Supple Cardiovascular/Chest: Positive for: Regular Rate, Rhythm. Negative for: Chest Non Tender Respiratory: Positive for: Normal Breath Sounds. Negative for: Respiratory Distress Gastrointestinal/Abdominal: Positive for: Normal Exam, Bowel Sounds, Soft. 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 Scribe Attestation: Documented by Yenny Sellers, acting as a scribe for Elizabeth Menchaca MD. Provider Scribe Attestation: All medical record entries made by the Scribe were at my direction and personally dictated by me. I have reviewed the chart and agree that the record accurately reflects my personal performance of the history, physical exam, medical decision making, and the department course for this patient. I have also personally directed, reviewed, and agree with the discharge instructions and disposition. Disposition - Clinical Impression Clinical Impression: Throat pain - Disposition Referrals: formerly [facility] [Outside] Disposition: Routine/Home Disposition Time: 19:30 Condition: STABLE Prescriptions: Ibuprofen [Motrin] 600 mg PO Q6H PRN #20 tab PRN Reason: Pain, Moderate (4-7) Instructions: Pharyngitis (ED) Forms: [employer] (Kosovan)
[2017-02-06 18:34] LABS: BASO # 0.1 K/uL (0.0-0.2); EOS % 0.3 % (0.0-4.0); HEMATOCRIT 41.3 % (35.0-51.0); LYMPH # 1.3 K/uL (1.0-4.3); LYMPH % 15.6 % (20.0-40.0); MEAN CELL VOLUME 93.9 fl (80.0-94.0); MEAN CORPUSCULAR HEMOGLOBIN 31.3 pg (27.0-31.0); MEAN CORPUSCULAR HGB CONC 33.3 g/dL (33.0-37.0); MEAN PLATELET VOLUME 8.7 fl (7.2-11.7); MONO # 0.8 K/uL (0.0-0.8); MONO % 9.1 % (0.0-10.0); NEUT # 6.1 K/uL (1.8-7.0); NRBC % 0.1 % (0.0-0.0); RED CELL DISTRIBUTION WIDTH 13.8 % (11.5-14.5); WHITE BLOOD COUNT 8.3 K/uL (4.8-10.8)
[2017-02-06 18:55] LABS: ALB/GLOB RATIO 1.3 (1.0-2.1); ALKALINE PHOSPHATASE 123 U/L (38-126); ALT/SGPT 70 U/L (21-72); AST/SGOT 84 U/L (17-59); BILIRUBIN,TOTAL 0.4 mg/dl (0.2-1.3); BLOOD UREA NITROGEN 16 mg/dl (9-20); CARBON DIOXIDE 26 mmol/L (22-30); CHLORIDE 102 mmol/L (98-107); GFR AFRICAN-AMERICAN > 60; GLUCOSE,RANDOM 107 mg/dL (75-110); POTASSIUM 3.9 MMOL/L (3.6-5.0); SODIUM 138 mmol/l (132-148); TOTAL PROTEIN 7.4 G/DL (6.3-8.2)
[2017-02-06 19:04] LABS: RBC URINE 2 /hpf (0-3); URINE BACTERIA RARE (<OCC); URINE BILIRUBIN NEGATIVE (NEGATIVE); URINE BLOOD NEGATIVE (NEGATIVE); URINE COLOR YELLOW (YELLOW); URINE GLUCOSE (UA) NEG (Normal); URINE KETONE NEGATIVE (NEGATIVE); URINE LEUKOCYTE ESTERASE NEG Leu/uL (Negative); URINE PROTEIN 100 mg/dL (NEGATIVE); WBC URINE 1 /hpf (0-5)
[2017-02-07] MEDS ORDERED: Albuterol-Ipratrop 3 mg / 0.5 (3 ml) UD ONE (00:09)
--- NOTE | 2017-02-07 10:46 | RAD ---
HISTORY: Abd pain COMPARISON: Chest radiographs 01/31/2017. FINDINGS: BOWEL: There is a paucity of bowel gas in the abdomen which is nonspecific. However, a bowel obstruction is not completely excluded. Retained fecal material seen at the ascending colon and hepatic flexure with gas moderately distending the transverse colon. Clinically correlate. No gross free intrarenal gas or abnormal internal calcifications. BONES: Old healed right rib fractures again evident. OTHER FINDINGS: Small patchy infiltrate has developed at the mid right lung zone laterally with none identified at the left. IMPRESSION: 1. Nonspecific bowel gas pattern. Small-bowel obstruction difficult to completely exclude though is not been proven either by this exam. Clinically correlate further. CT is available for follow-up if clinically warranted. 2. Incidental limited right pulmonary infiltrate identified.
--- NOTE | 2017-02-08 11:36 | CARD ---
APPROVED REPORT EKG Measurement Heart [id number] <Conclusion> Sinus tachycardia Left axis deviation Abnormal ECG
== END 2017-02-06 19:30 | disposition home or self-care (01) ==
LOC: H.ER 17:30
DX: J02.9 Acute pharyngitis, unspecified (principal); R10.9 Unspecified abdominal pain; K56.60 Unspecified intestinal obstruction; Z95.1 Presence of aortocoronary bypass graft
CPT/HCPCS: 74022; 80053; 81003; 85025; 87070; 87430; 93005; 96360; 99283; J7040

== ENCOUNTER 2017-02-06 22:58 | Inpatient (IN) | payer MEDICAID ==
[2017-02-06 22:59] VITALS: BMI 34.4
[2017-02-06] MEDS ORDERED: Albuterol-Ipratrop 3 mg / 0.5 (3 ml) UD IH STA (23:34)
--- NOTE | 2017-02-06 23:36 | ED PDOC ---
HPI: CCC, URI, Sore Throat Time Seen by Provider: 02/06/17 23:20 Chief Complaint (Nursing): Abdominal Pain Chief Complaint (Provider): cough, throat pain History Per: Patient History/Exam Limitations: no limitations Onset/Duration Of Symptoms: Days (1) Current Symptoms Are (Timing): Still Present Location Of Pain: Throat Associated Symptoms: Chills, Cough, Sputum Additional History Per: Patient Additional Complaint(s): 46 y/o male presents with cough, sore throat x 1 day. Patient states he slept outside in the rain yesterday. States cough is productive of yellow sputum, and pain in throat with swallowing. Denies fever, chest pain, shortness of breath, palpitations, abdominal pain, changes in bowel movements, recent travel , sick contacts. Of note, patient homeless, was just discharged from ED for same, was sleeping in waiting room until asked to leave by security, then decided to register to be seen again. Past Medical History Reviewed: Historical Data, Nursing Documentation, Vital Signs Vital Signs: Last Vital Signs Temp 99.0 F 02/07/17 03:02 Pulse 98 H 02/07/17 03:37 Resp 18 02/07/17 03:37 BP 108/59 L 02/07/17 03:02 Pulse Ox 96 02/07/17 03:51 - Medical History PMH: Asthma, CAD, COPD, Fractures (skull, clavical, bilateral jaw, pelvis, right femur), Seizures Denies: Diabetes, Hepatitis, HIV, HTN, Chronic Kidney Disease, Sexually Transmitted Disease - Surgical History Surgical History: CABG - Family History Family History: States: Unknown Family Hx - Home Medications Home Medications: Ambulatory Orders Medication Instructions Recorded Phenytoin, Extended [Dilantin 100 mg PO TID #90 tab 02/04/17 Kapseals] Ibuprofen [Motrin] 600 mg PO Q6H PRN #20 tab 02/06/17 - Allergies Allergies/Adverse Reactions: Allergies Allergy/AdvReac Type Severity Reaction Status Date / Time No Known Allergies Allergy Verified 02/06/17 17:36 Review of Systems ROS Statement: Except As Marked, All Systems Reviewed And Found Negative ENT: Positive for: Throat Pain Respiratory: Positive for: Cough, Sputum Physical Exam - Reviewed Nursing Documentation Reviewed: Yes Vital Signs Reviewed: Yes - Physical Exam Appears: Positive for: Well, Non-toxic, No Acute Distress Head Exam: Positive for: ATRAUMATIC, NORMAL INSPECTION, NORMOCEPHALIC Skin: Positive for: Normal Color Eye Exam: Positive for: Normal appearance ENT: Positive for: Normal ENT Inspection Cardiovascular/Chest: Positive for: Regular Rate, Rhythm Respiratory: Positive for: Rhonchi, Wheezing (expiratory, diffuse). Negative for: Accessory Muscle Use, Respiratory Distress Gastrointestinal/Abdominal: Positive for: Normal Exam Back: Positive for: Normal Inspection Extremity: Positive for: Normal ROM Neurologic/Psych: Positive for: Alert, Oriented - Laboratory Results Result Diagrams: 02/07/17 01:40 - ECG ECG: Positive for: Viewed By Me (reviewed by eD attending) ECG Rhythm: Positive for: Sinus Rhythm O2 Sat by Pulse Oximetry: 96 - Progress ED Course And Treament: ibuprofen and duoneb ordered Patient now with temp of 102F after ibuprofen given Chest xray from earlier visit reviewed by creative services writer and ED attending; + infiltrate RML CBC, VBG, blood cultures ordered IV placed, Zithromax and Rocephin IV doses given. Solumedrol, duonebs ordered. IV levaquin dose added as patient had a recent hospital admission on 01/20/17. Case discussed with Dr. Church, Medical Service on-call, for admission. Disposition - Clinical Impression Clinical Impression: Pneumonia - Patient ED Disposition Is Patient to be Admitted: Yes - Disposition Disposition Time: 03:15 Condition: FAIR - Pt Status Changed To: Hospital Disposition Of: Inpatient - Admit Certification Admit to Inpatient:: After my assessment, the patient will require hospitalization for at least two midnights. This is because of the severity of symptoms shown, intensity of services needed, and/or the medical risk in this patient being treated as an outpatient. - POA Present On Arrival: None
[2017-02-07] MEDS ORDERED: Sodium Chloride 0.9% 1,000 ML IV STA (01:31)
[2017-02-07] MEDS ORDERED: Albuterol-Ipratrop 3 mg / 0.5 (3 ml) UD IH STA ×2 (01:37→03:07)
[2017-02-07] MEDS ORDERED: cefTRIAXone (Rocephin) 1 gm Inj ONE (01:38)
[2017-02-07] MEDS ORDERED: Azithromycin 500 MG in NS 250 ML IVPB STA (01:56)
[2017-02-07 02:01] LABS: BASO % 0.4 % (0.0-2.0); EOS % 0.3 % (0.0-4.0); HEMATOCRIT 39.4 % (35.0-51.0); LYMPH # 1.4 K/uL (1.0-4.3); LYMPH % 15.1 % (20.0-40.0); MEAN CELL VOLUME 93.6 fl (80.0-94.0); MEAN CORPUSCULAR HEMOGLOBIN 30.7 pg (27.0-31.0); MEAN CORPUSCULAR HGB CONC 32.8 g/dL (33.0-37.0); MEAN PLATELET VOLUME 8.5 fl (7.2-11.7); MONO # 0.9 K/uL (0.0-0.8); MONO % 9.3 % (0.0-10.0); NEUT % 74.9 % (50.0-75.0); NRBC % 0.1 % (0.0-0.0); RED CELL DISTRIBUTION WIDTH 13.6 % (11.5-14.5); WHITE BLOOD COUNT 9.3 K/uL (4.8-10.8)
[2017-02-07 02:05] LABS: VENOUS BLOOD GAS PCO2 38 mmHg (40-60); VENOUS BLOOD PH 7.43 (7.32-7.43)
[2017-02-07] MEDS ORDERED: Azithromycin 500 MG IV IVPB ONE (02:22)
[2017-02-07] MEDS ORDERED: Albuterol-Ipratrop 3 mg / 0.5 (3 ml) UD ONE ×2 (02:22→03:17)
[2017-02-07] MEDS ORDERED: levoFLOXacin 750 mg in D5W 750 MG/150 ML BAG IVPB STA (02:27)
[2017-02-07 03:30] LABS: ABG ALLEN TEST YES; ARTERIAL BLOOD GAS HCO3 24.1 mmol/L (21-28); ARTERIAL BLOOD GAS MODE 6L NEB TX; ARTERIAL BLOOD GAS O2 CAPACITY 16.5 mL/dL (16-24); ARTERIAL BLOOD GAS O2 CONTENT 16.3 ML/dL (15-23); ARTERIAL BLOOD GAS PH 7.41 (7.35-7.45); ARTERIAL BLOOD GAS PO2 73 mm/Hg (80-100); ARTERIAL BLOOD HGB O2 SAT 92.6 % (95.0-98.0); CARBOXYHEMOGLOBIN 3.8 % (0.5-1.5); METHEMOGLOBIN 2.5 % (0.0-3.0)
[2017-02-07] MEDS: Sodium Chloride 0.9% 1,000 ML IV SCH ×2 (06:39→16:30)
[2017-02-07] MEDS: Albuterol-Ipratrop 3 mg / 0.5 (3 ml) UD INH SCH ×4 (08:12→19:09)
[2017-02-07 09:39] LABS: HEMATOCRIT 39.4 % (35.0-51.0); MEAN CELL VOLUME 93.3 fl (80.0-94.0); MEAN CORPUSCULAR HEMOGLOBIN 31.3 pg (27.0-31.0); MEAN CORPUSCULAR HGB CONC 33.6 g/dL (33.0-37.0); RED CELL DISTRIBUTION WIDTH 13.6 % (11.5-14.5); WHITE BLOOD COUNT 7.6 K/uL (4.8-10.8)
[2017-02-07 09:50] LABS: BLOOD UREA NITROGEN 13 mg/dl (9-20); CALCIUM 8.4 mg/dL (8.4-10.2); CARBON DIOXIDE 23 mmol/L (22-30); CHLORIDE 107 mmol/L (98-107); GFR AFRICAN-AMERICAN > 60; GLUCOSE,RANDOM 160 mg/dL (75-110); POTASSIUM 4.1 MMOL/L (3.6-5.0); SODIUM 140 mmol/l (132-148)
[2017-02-07] MEDS: methylPREDNISolone 60 MG in Sodium Chloride 0.9% 50 ML IVPB SCH ×3 (10:07→22:02)
[2017-02-07 10:09] LABS: PARTIAL THROMBOPLASTIN TIME 27.4 Seconds (25.6-37.1)
[2017-02-07] MEDS: Azithromycin 500 MG in Sodium Chloride 0.9% 250 ML IVPB SCH (12:00)
--- NOTE | 2017-02-07 13:16 | RAD ---
HISTORY: SOB and cough COMPARISON: Complete abdomen series with chest 02/06/2017. TECHNIQUE: Chest PA and lateral FINDINGS: LUNGS: Mild right-sided infiltrate persists at the mid superior right upper lobe, slightly worsened. No left-sided infiltrate. PLEURA: No significant pleural effusion identified. No pneumothorax apparent. CARDIOVASCULAR: Normal. OSSEOUS STRUCTURES: No significant abnormalities. VISUALIZED UPPER ABDOMEN: Normal. OTHER FINDINGS: None. IMPRESSION: Mild worsening of right upper lobe infiltrate. Remainder the examination appears stable and unremarkable.
--- NOTE | 2017-02-07 18:53 | CP.PCM.CON ---
History of Present Illness - History of Present Illness History of Present Illness: 46 y/o male presents with cough, sore throat x 1 day. Patient states he slept outside in the rain yesterday. States cough is productive of yellow sputum, and pain in throat with swallowing. Denies fever, chest pain, shortness of breath, palpitations, abdominal pain, changes in bowel movements, recent travel , sick contacts. Of note, patient homeless, was just discharged from ED for same, was sleeping in waiting room until asked to leave by security, then decided to register to be seen again. - Medical History PMH: Asthma, CAD, COPD, Fractures (skull, clavical, bilateral jaw, pelvis, right femur), Seizures Denies: Diabetes, Hepatitis, HIV, HTN, Chronic Kidney Disease, Sexually Transmitted Disease - Surgical History Surgical History: open heart surgery , ? cabg vs valvuloplasty Review of Systems - Constitutional Constitutional: As Per HPI - EENT Eyes: absent: As Per HPI, Blind Spots, Blurred Vision, Change in Vision, Decreased Night Vision, Diplopia, Discharge, Dry Eye, Exophthalmos, Floaters, Irritation, Itchy Eyes, Loss of Peripheral Vision, Pain, Photophobia, Requires Corrective Lenses, Sees Flashes, Spots in Vision, Tunnel Vision, Other Visual Disturbances, Loss of Vision, Other Ears: absent: As Per HPI, Decreased Hearing, Ear Discharge, Ear Pain, Tinnitus, Abnormal Hearing, Disequilibrium, Dizziness, Other Nose/Mouth/Throat: absent: As Per HPI, Epistaxis, Nasal Congestion, Nasal Discharge, Nasal Obstruction, Nasal Trauma, Nose Pain, Post Nasal Drip, Sinus Pain, Sinus Pressure, Bleeding Gums, Change in Voice, Dental Pain, Dry Mouth, Dysphagia, Halitosis, Hoarsness, Lip Swelling, Mouth Lesions, Mouth Pain, Odynophagia, Sore Throat, Throat Swelling, Tongue Swelling, Facial Pain, Neck Pain, Neck Mass, Other - Cardiovascular Cardiovascular: As Per HPI - Respiratory Respiratory: As Per HPI - Gastrointestinal Gastrointestinal: absent: As Per HPI, Abdominal Pain, Belching, Bloating, Change in Bowel Habits, Change in Stool Character, Coffee Ground Emesis, Constipation, Cramping, Diarrhea, Dyspepsia, Dysphagia, Early Satiety, Excessive Flatus, Fecal Incontinence, Heartburn, Hematemesis, Hematochezia, Loose Stools, Melena, Nausea, Odynophagia, Temesmus, Vomiting, Other - Genitourinary Genitourinary: absent: As Per HPI, Change in Urinary Stream, Difficulty Urinating, Dysuria, Flank Pain, Hematuria, Pyuria, Nocturia, Urinary Incontinence, Urinary Frequency, Urinary Hesitance, Urinary Urgency, Voiding Freq/Small Amts, Freq UTI, Hx Renal/Bladder Calculi, Hx /Renal Surgery, Bladder Distension, Other - Musculoskeletal Musculoskeletal: absent: As Per HPI, Abnormal Gait, Arthralgias, Atrophy, Back Pain, Deformity, Joint Swelling, Limited Range of Motion, Loss of Height, Muscle Cramps, Muscle Weakness, Myalgias, Neck Pain, Numbness, Radiating Pain into Limb, Stiffness, Tingling, Other - Integumentary Integumentary: absent: As Per HPI, Acne, Alopecia, Bleeding Lesions, Change in Hair, Change in Nails, Change in Pigmentation, Changing Lesions, Dry Skin, Erythema, Furuncle, Hirsutism, Lesions, New Lesions, Non-Healing Lesions, Photosensitivity, Pruritus, Rash, Skin Pain, Skin Ulcer, Sores, Striae, Swelling , Unusual Bruising, Wounds, Jaundice, Other - Neurological Neurological: absent: As Per HPI, Abnormal Gait, Abnormal Hearing, Abnormal Movements, Abnormal Speech, Behavioral Changes, Burning Sensations, Confusion, Convulsions, Disequilibrium, Dizziness, Numbness, Focal Weakness, Frequent Falls , Headaches, Lack of Coordination, Loss of Vision, Memory Loss, Paresthesias, Radicular Pain, Restless Legs, Sensory Deficit, Syncope, Tingling, Tremor, Vertigo, Weakness, Other Visual Disturbances, Other - Psychiatric Psychiatric: absent: As Per HPI, Abnormal Sleep Pattern, Anhedonia, Anxiety, Auditory Hallucinations, Behavioral Changes, Change in Appetite, Change in Libido, Confusion, Depression, Difficulty Concentrating, Hallucinations, Homicidal Ideation, Hopelessness, Irritability, Memory Loss, Mood Swings, Panic Attacks, Paranoia, Suicidal Ideation, Visual Hallucinations, Tactile Hallucinations, Other - Endocrine Endocrine: absent: As Per HPI, Change in Body Appearance, Change in Libido, Cold Intolorance, Deepening of Voice, Excessive Sweating, Fatigue, Flushing, Heat Intolorance, Increase in Ring/Shoe/Hat Size, Palpitations, Polydipsia, Polyphagia, Polyuria, Other - Hematologic/Lymphatic Hematologic: absent: As Per HPI, Easy Bleeding, Easy Bruising, Lymphadenopathy, Other Past Patient History - Infectious Disease Hx of Infectious Diseases: None - Tetanus Immunizations Tetanus Immunization: Unknown - Past Medical History & Family History Past Medical History?: Yes - Past Social History Smoking Status: Light Smoker < 10 Cigarettes Daily - CARDIAC Hx Hypertension: No - PULMONARY Hx Asthma: Yes Hx Chronic Obstructive Pulmonary Disease (COPD): Yes - NEUROLOGICAL Hx Seizures: Yes - HEENT Hx HEENT Problems: No - RENAL Hx Chronic Kidney Disease: No - ENDOCRINE/METABOLIC Hx Endocrine Disorders: No - HEMATOLOGICAL/ONCOLOGICAL Hx Human Immunodeficiency Virus (HIV): No - INTEGUMENTARY Hx Dermatological Problems: No - MUSCULOSKELETAL/RHEUMATOLOGICAL Hx Fractures: Yes (skull, clavical, bilateral jaw, pelvis, right femur) - GASTROINTESTINAL Hx Gastrointestinal Disorders: No - GENITOURINARY/GYNECOLOGICAL Hx Sexually Transmitted Disorders: No - PSYCHIATRIC Hx Psychophysiologic Disorder: Yes Hx Substance Use: Yes - SURGICAL HISTORY Hx Coronary Artery Bypass Graft: Yes - ANESTHESIA Hx Anesthesia: Yes Hx Anesthesia Reactions: No Hx Malignant Hyperthermia: No Meds Allergies/Adverse Reactions: Allergies Allergy/AdvReac Type Severity Reaction Status Date / Time No Known Allergies Allergy Verified 02/06/17 17:36 - Medications Medications: Current Medications Acetaminophen (Tylenol 325mg Tab) 650 mg PO Q4 PRN PRN Reason: Temperature >101.0 Last Admin: 02/07/17 13:33 Dose: 650 mg Acetaminophen (Tylenol 325mg Tab) 325 mg PO Q6 PRN PRN Reason: pain Albuterol/Ipratropium (Duoneb 3 Mg/0.5 Mg (3 Ml) Ud) 3 ml INH RQ4 [facility] Last Admin: 02/07/17 15:36 Dose: 3 ml Heparin Sodium (Porcine) (Heparin) 5,000 units SC Q8 [facility] PRN Reason: Protocol Last Admin: 02/07/17 16:30 Dose: 5,000 units Azithromycin 500 mg/ Sodium (Chloride) 250 mls @ 250 mls/hr IVPB DAILY [facility] Last Admin: 02/07/17 12:00 Dose: 250 mls/hr Sodium Chloride (Sodium Chloride 0.9%) 1,000 mls @ 100 mls/hr IV .Q10H [facility] Stop: 02/08/17 06:13 Last Admin: 02/07/17 16:30 Dose: 100 mls/hr Ceftriaxone Sodium 1 gm/ (Sodium Chloride) 100 mls @ 100 mls/hr IVPB DAILY [facility] Last Admin: 02/07/17 11:00 Dose: 100 mls/hr Methylprednisolone 60 mg/ (Sodium Chloride) 50 mls @ 100 mls/hr IVPB Q6 [facility] Last Admin: 02/07/17 16:29 Dose: 100 mls/hr Vancomycin HCl 1 gm/ Sodium (Chloride) 250 mls @ 166.667 mls/hr IVPB Q12 [facility] Last Admin: 02/07/17 10:00 Dose: 166.667 mls/hr Phenytoin Sodium (Dilantin) 100 mg PO TID [facility] Last Admin: 02/07/17 16:30 Dose: 100 mg Physical Exam - Constitutional Appears: Non-toxic, Chronically Ill - Head Exam Head Exam: NORMOCEPHALIC - Eye Exam Eye Exam: PERRL. absent: Scleral icterus - ENT Exam ENT Exam: Mucous Membranes Dry, Normal External Ear Exam - Neck Exam Neck exam: Negative for: Lymphadenopathy - Respiratory Exam Respiratory Exam: Decreased Breath Sounds, Rhonchi - Cardiovascular Exam Cardiovascular Exam: REGULAR RHYTHM, +S1, +S2 - GI/Abdominal Exam GI & Abdominal Exam: Diminished Bowel Sounds, Soft. absent: Tenderness - Rectal Exam Rectal Exam: Deferred - Exam Exam: NORMAL INSPECTION - Extremities Exam Extremities exam: Positive for: pedal pulses present. Negative for: calf tenderness, pedal edema, tenderness - Back Exam Back exam: absent: CVA tenderness (L), CVA tenderness (R), paraspinal tenderness - Neurological Exam Neurological exam: Alert, CN II-XII Intact, Oriented x3, Reflexes Normal - Psychiatric Exam Psychiatric exam: Depressed - Skin Skin Exam: Dry Results - Vital Signs Recent Vital Signs: Last Vital Signs Temp 97.7 F 02/07/17 13:00 Pulse 92 H 02/07/17 13:00 Resp 27 H 02/07/17 13:00 BP 104/69 02/07/17 13:00 Pulse Ox 95 02/07/17 13:00 - Labs Result Diagrams: 02/07/17 08:45 02/07/17 08:45 Labs: Laboratory Results - last 24 hr 02/07/17 02/07/17 02/07/17 03:20 08:45 08:45 WBC 7.6 RBC 4.23 L Hgb 13.2 Hct 39.4 MCV 93.3 MCH 31.3 H MCHC 33.6 RDW 13.6 Plt Count 150 PT 11.7 INR 1.1 APTT 27.4 pCO2 37 pO2 73 L HCO3 24.1 ABG pH 7.41 ABG Total CO2 24.6 ABG O2 Saturation 98.9 H ABG O2 Content 16.3 ABG Base Excess -0.9 ABG Hemoglobin 12.5 ABG Carboxyhemoglobin 3.8 H POC ABG HHb (Measured) 1.0 ABG Methemoglobin 2.5 ABG O2 Capacity 16.5 Dashawn Test Yes A-a O2 Difference 194.0 Hgb O2 Saturation 92.6 L Vent Mode 6l neb tx FiO2 44.0 Sodium Potassium Chloride Carbon Dioxide Anion Gap BUN Creatinine Est GFR ( Amer) Est GFR (Non-Af Amer) Random Glucose Calcium 02/07/17 08:45 WBC RBC Hgb Hct MCV MCH MCHC RDW Plt Count PT INR APTT pCO2 pO2 HCO3 ABG pH ABG Total CO2 ABG O2 Saturation ABG O2 Content ABG Base Excess ABG Hemoglobin ABG Carboxyhemoglobin POC ABG HHb (Measured) ABG Methemoglobin ABG O2 Capacity Dashawn Test A-a O2 Difference Hgb O2 Saturation Vent Mode FiO2 Sodium 140 Potassium 4.1 Chloride 107 Carbon Dioxide 23 Anion Gap 15 BUN 13 Creatinine 0.7 L Est GFR ( Amer) > 60 Est GFR (Non-Af Amer) > 60 Random Glucose 160 H Calcium 8.4 Assessment & Plan (1) COPD (chronic obstructive pulmonary disease) with acute bronchitis Status: Acute (2) Hypoxia Status: Acute (3) Pneumonia Status: Acute - Assessment and Plan (Free Text) Assessment: await cultures cont iv antibiotics as per dr Church
--- NOTE | 2017-02-08 00:06 | CP.PCM.HP ---
History of Present Illness - History of Present Illness History of Present Illness: CC: Cough History of Present Illness: A 46 y/o male presents with cough, sore throat x 1 day. Patient states he slept outside in the rain yesterday. States cough is productive of yellow sputum, and pain in throat with swallowing. Denies fever, chest pain, shortness of breath, palpitations, abdominal pain, changes in bowel movements, recent travel, sick contacts. Present on Admission - Present on Admission Any Indicators Present on Admission: No History of DVT/PE: No History of Uncontrolled Diabetes: No Review of Systems - Review of Systems All systems: reviewed and no additional remarkable complaints except Past Patient History - Infectious Disease Hx of Infectious Diseases: None - Tetanus Immunizations Tetanus Immunization: Unknown - Past Medical History & Family History Past Medical History?: Yes Past Family History: Reviewed and not pertinent - Past Social History Smoking Status: Light Smoker < 10 Cigarettes Daily Alcohol: None Drugs: Denies - CARDIAC Hx Hypertension: No - PULMONARY Hx Asthma: Yes Hx Chronic Obstructive Pulmonary Disease (COPD): Yes - NEUROLOGICAL Hx Seizures: Yes - HEENT Hx HEENT Problems: No - RENAL Hx Chronic Kidney Disease: No - ENDOCRINE/METABOLIC Hx Endocrine Disorders: No - HEMATOLOGICAL/ONCOLOGICAL Hx Human Immunodeficiency Virus (HIV): No - INTEGUMENTARY Hx Dermatological Problems: No - MUSCULOSKELETAL/RHEUMATOLOGICAL Hx Fractures: Yes (skull, clavical, bilateral jaw, pelvis, right femur) - GASTROINTESTINAL Hx Gastrointestinal Disorders: No - GENITOURINARY/GYNECOLOGICAL Hx Sexually Transmitted Disorders: No - PSYCHIATRIC Hx Psychophysiologic Disorder: Yes Hx Substance Use: Yes - SURGICAL HISTORY Hx Coronary Artery Bypass Graft: Yes - ANESTHESIA Hx Anesthesia: Yes Hx Anesthesia Reactions: No Hx Malignant Hyperthermia: No Meds Allergies/Adverse Reactions: Allergies Allergy/AdvReac Type Severity Reaction Status Date / Time No Known Allergies Allergy Verified 02/06/17 17:36 Physical Exam - Constitutional Appears: In Acute Distress - Head Exam Head Exam: ATRAUMATIC, NORMAL INSPECTION, NORMOCEPHALIC - Eye Exam Eye Exam: EOMI, Normal appearance, PERRL Pupil Exam: NORMAL ACCOMODATION, PERRL - ENT Exam ENT Exam: Mucous Membranes Moist, Normal Exam - Neck Exam Neck exam: Positive for: Full Rom, Normal Inspection - Respiratory Exam Respiratory Exam: Decreased Breath Sounds, Wheezes, NORMAL BREATHING PATTERN. absent: Rales - Cardiovascular Exam Cardiovascular Exam: REGULAR RHYTHM, +S1, +S2 - GI/Abdominal Exam GI & Abdominal Exam: Normal Bowel Sounds, Soft. absent: Tenderness - Extremities Exam Extremities exam: Positive for: normal inspection - Back Exam Back exam: FULL ROM, NORMAL INSPECTION - Neurological Exam Neurological exam: Alert, CN II-XII Intact, Normal Gait, Oriented x3, Reflexes Normal - Psychiatric Exam Psychiatric exam: Normal Affect, Normal Mood - Skin Skin Exam: Dry, Intact, Normal Color, Warm Results - Vital Signs Recent Vital Signs: Last Vital Signs Temp 97.9 F 02/07/17 20:22 Pulse 94 H 02/07/17 20:22 Resp 16 02/07/17 20:22 BP 118/71 02/07/17 20:22 Pulse Ox 92 L 02/07/17 20:22 - Labs Result Diagrams: 02/07/17 08:45 02/07/17 08:45 Labs: Laboratory Results - last 24 hr 02/07/17 02/07/17 02/07/17 03:20 08:45 08:45 WBC 7.6 RBC 4.23 L Hgb 13.2 Hct 39.4 MCV 93.3 MCH 31.3 H MCHC 33.6 RDW 13.6 Plt Count 150 PT 11.7 INR 1.1 APTT 27.4 pCO2 37 pO2 73 L HCO3 24.1 ABG pH 7.41 ABG Total CO2 24.6 ABG O2 Saturation 98.9 H ABG O2 Content 16.3 ABG Base Excess -0.9 ABG Hemoglobin 12.5 ABG Carboxyhemoglobin 3.8 H POC ABG HHb (Measured) 1.0 ABG Methemoglobin 2.5 ABG O2 Capacity 16.5 Dashawn Test Yes A-a O2 Difference 194.0 Hgb O2 Saturation 92.6 L Vent Mode 6l neb tx FiO2 44.0 Sodium Potassium Chloride Carbon Dioxide Anion Gap BUN Creatinine Est GFR ( Amer) Est GFR (Non-Af Amer) Random Glucose Calcium 02/07/17 08:45 WBC RBC Hgb Hct MCV MCH MCHC RDW Plt Count PT INR APTT pCO2 pO2 HCO3 ABG pH ABG Total CO2 ABG O2 Saturation ABG O2 Content ABG Base Excess ABG Hemoglobin ABG Carboxyhemoglobin POC ABG HHb (Measured) ABG Methemoglobin ABG O2 Capacity Dashawn Test A-a O2 Difference Hgb O2 Saturation Vent Mode FiO2 Sodium 140 Potassium 4.1 Chloride 107 Carbon Dioxide 23 Anion Gap 15 BUN 13 Creatinine 0.7 L Est GFR ( Amer) > 60 Est GFR (Non-Af Amer) > 60 Random Glucose 160 H Calcium 8.4 - Imaging and Cardiology Chest x-ray Status: Report reviewed by me Additional comment: IMPRESSION: Mild worsening of right upper lobe infiltrate. Remainder the examination appears stable and unremarkable. Assessment & Plan (1) Pneumonia Assessment and Plan: COPD Exacerbation Pulmonary Consult Status: Acute
[2017-02-08] MEDS: Albuterol-Ipratrop 3 mg / 0.5 (3 ml) UD INH SCH ×6 (00:10→19:41)
[2017-02-08] MEDS: methylPREDNISolone 60 MG in Sodium Chloride 0.9% 50 ML IVPB SCH ×4 (04:58→21:54)
[2017-02-08] MEDS: Sodium Chloride 0.9% 1,000 ML IV SCH (05:57)
[2017-02-08] MEDS ORDERED: Sodium Chloride 3% for Inhalation 4 ML VIAL.NEB IH PRN (07:14)
--- NOTE | 2017-02-08 11:21 | CT ---
PROCEDURE: CT Chest without contrast HISTORY: sob/ pna COMPARISON: Comparison is made to the previous study dated 11/11/2013 TECHNIQUE: Contiguous axial images were obtained through the chest without intravenous contrast enhancement. Sagittal and coronal reconstructions were performed. Radiation dose (DLP): 646.42 mGy-cm. This CT exam was performed using one or more of the following dose reduction techniques: Automated exposure control, adjustment of the mA and/or kV according to patient size, and/or use of iterative reconstruction technique. FINDINGS: LUNGS: There is airspace consolidation at the posterior lower portion of the right lung upper lobe contains air bronchogram may represent pneumonia. There are nonspecific patchy ground-glass opacities in the lungs bilaterally. MEDIASTINUM: Unremarkable thoracic aorta. No aneurysm. Normal sized heart. Main pulmonary artery is again mildly enlarged. Again seen is small low-attenuation soft tissue at the anterior mediastinum likely represent residual thymus gland. No lymphadenopathy. PLEURA: No pleural fluid. No pneumothorax. BONES: Old fracture seen at the right 4th and 5th ribs UPPER ABDOMEN: Grossly unremarkable. OTHER FINDINGS: None. IMPRESSION: Airspace consolidation at the posterior lower portion of the right lung upper lobe contains air bronchogram. The differential diagnosis includes pneumonia . Re- demonstration of scattered foci of ground-glass opacities in the lungs. Findings are nonspecific and the possibility of pneumonitis such as hypersensitivity pneumonitis should be considered. Mildly enlarged main pulmonary artery.
--- NOTE | 2017-02-08 11:30 | CARD ---
APPROVED REPORT EKG Measurement Heart [id number] <Conclusion> Normal sinus rhythm Left axis deviation Inferior infarct, age undetermined Abnormal ECG
[2017-02-08] MEDS: Azithromycin 500 MG in Sodium Chloride 0.9% 250 ML IVPB SCH (11:34)
--- NOTE | 2017-02-08 13:38 | CP.PCM.PN ---
Subjective - Date & Time of Evaluation Date of Evaluation: 02/08/17 Time of Evaluation: 07:00 - Subjective Subjective: awake alert c/o cough nad Objective - Vital Signs/Intake and Output Vital Signs (last 24 hours): Temp Pulse Resp BP Pulse Ox 97.3 F L 101 H 20 135/82 96 02/08/17 12:47 02/08/17 12:47 02/08/17 12:47 02/08/17 12:47 02/08/17 12:47 - Medications Medications: Current Medications Acetaminophen (Tylenol 325mg Tab) 650 mg PO Q4 PRN PRN Reason: Temperature >101.0 Last Admin: 02/07/17 13:33 Dose: 650 mg Acetaminophen (Tylenol 325mg Tab) 325 mg PO Q6 PRN PRN Reason: pain Albuterol/Ipratropium (Duoneb 3 Mg/0.5 Mg (3 Ml) Ud) 3 ml INH RQ4 [facility] Last Admin: 02/08/17 11:19 Dose: 3 ml Haloperidol Lactate (Haldol) 2 mg IM Q6 PRN PRN Reason: Agitation Last Admin: 02/07/17 21:56 Dose: 2 mg Heparin Sodium (Porcine) (Heparin) 5,000 units SC Q8 [facility] PRN Reason: Protocol Last Admin: 02/08/17 08:43 Dose: 5,000 units Azithromycin 500 mg/ Sodium (Chloride) 250 mls @ 250 mls/hr IVPB DAILY [facility] Last Admin: 02/08/17 11:34 Dose: 250 mls/hr Ceftriaxone Sodium 1 gm/ (Sodium Chloride) 100 mls @ 100 mls/hr IVPB DAILY [facility] Last Admin: 02/08/17 08:42 Dose: 100 mls/hr Methylprednisolone 60 mg/ (Sodium Chloride) 50 mls @ 100 mls/hr IVPB Q6 [facility] Last Admin: 02/08/17 10:04 Dose: 100 mls/hr Vancomycin HCl 1 gm/ Sodium (Chloride) 250 mls @ 166.667 mls/hr IVPB Q12 [facility] Last Admin: 02/08/17 08:45 Dose: 166.667 mls/hr Phenytoin Sodium (Dilantin) 100 mg PO TID [facility] Last Admin: 02/08/17 12:20 Dose: 100 mg - Labs Labs: 02/07/17 08:45 02/07/17 08:45 PT 11.7 Seconds (9.8-13.1) 02/07/17 08:45 INR 1.1 (0.9-1.2) 02/07/17 08:45 APTT 27.4 Seconds (25.6-37.1) 02/07/17 08:45 - Constitutional Appears: Non-toxic, Cachectic, Chronically Ill - Head Exam Head Exam: ATRAUMATIC, NORMAL INSPECTION, NORMOCEPHALIC - Eye Exam Eye Exam: PERRL. absent: Scleral icterus - ENT Exam ENT Exam: Mucous Membranes Dry - Neck Exam Neck Exam: absent: Lymphadenopathy - Respiratory Exam Respiratory Exam: Decreased Breath Sounds, Prolonged Expiratory Phase, Rhonchi, Wheezes - Cardiovascular Exam Cardiovascular Exam: REGULAR RHYTHM, +S1, +S2 - GI/Abdominal Exam GI & Abdominal Exam: Distended, Soft. absent: Tenderness - Rectal Exam Rectal Exam: Deferred - Exam Exam: NORMAL INSPECTION - Extremities Exam Extremities Exam: absent: Pedal Edema - Back Exam Back Exam: absent: CVA tenderness (L), CVA tenderness (R) - Neurological Exam Neurological Exam: Alert, Awake, Oriented x3 - Psychiatric Exam Psychiatric exam: Depressed - Skin Skin Exam: Intact Assessment and Plan (1) COPD (chronic obstructive pulmonary disease) with acute bronchitis Status: Acute (2) Hypoxia Status: Acute (3) Pneumonia Status: Acute
--- NOTE | 2017-02-08 16:00 | CP.PCM.PN ---
Subjective - Date & Time of Evaluation Date of Evaluation: 02/08/17 Time of Evaluation: 10:00 - Subjective Subjective: Still c/o Cough. Spiked fever at presentation of 102 but no ne spike. Objective - Vital Signs/Intake and Output Vital Signs (last 24 hours): Temp Pulse Resp BP Pulse Ox 97.7 F 82 19 130/81 98 02/08/17 15:58 02/08/17 15:58 02/08/17 15:58 02/08/17 15:58 02/08/17 15:58 - Medications Medications: Current Medications Acetaminophen (Tylenol 325mg Tab) 650 mg PO Q4 PRN PRN Reason: Temperature >101.0 Last Admin: 02/07/17 13:33 Dose: 650 mg Acetaminophen (Tylenol 325mg Tab) 325 mg PO Q6 PRN PRN Reason: pain Albuterol/Ipratropium (Duoneb 3 Mg/0.5 Mg (3 Ml) Ud) 3 ml INH RQ4 [facility] Last Admin: 02/08/17 11:19 Dose: 3 ml Haloperidol Lactate (Haldol) 2 mg IM Q6 PRN PRN Reason: Agitation Last Admin: 02/07/17 21:56 Dose: 2 mg Heparin Sodium (Porcine) (Heparin) 5,000 units SC Q8 [facility] PRN Reason: Protocol Last Admin: 02/08/17 08:43 Dose: 5,000 units Azithromycin 500 mg/ Sodium (Chloride) 250 mls @ 250 mls/hr IVPB DAILY [facility] Last Admin: 02/08/17 11:34 Dose: 250 mls/hr Ceftriaxone Sodium 1 gm/ (Sodium Chloride) 100 mls @ 100 mls/hr IVPB DAILY [facility] Last Admin: 02/08/17 08:42 Dose: 100 mls/hr Methylprednisolone 60 mg/ (Sodium Chloride) 50 mls @ 100 mls/hr IVPB Q6 [facility] Last Admin: 02/08/17 10:04 Dose: 100 mls/hr Vancomycin HCl 1 gm/ Sodium (Chloride) 250 mls @ 166.667 mls/hr IVPB Q12 [facility] Last Admin: 02/08/17 08:45 Dose: 166.667 mls/hr Phenytoin Sodium (Dilantin) 100 mg PO TID [facility] Last Admin: 02/08/17 12:20 Dose: 100 mg - Labs Labs: 02/07/17 08:45 02/07/17 08:45 PT 11.7 Seconds (9.8-13.1) 02/07/17 08:45 INR 1.1 (0.9-1.2) 02/07/17 08:45 APTT 27.4 Seconds (25.6-37.1) 02/07/17 08:45 - Constitutional Appears: No Acute Distress - Head Exam Head Exam: ATRAUMATIC, NORMAL INSPECTION, NORMOCEPHALIC - Eye Exam Eye Exam: EOMI, Normal appearance, PERRL Pupil Exam: NORMAL ACCOMODATION, PERRL - ENT Exam ENT Exam: Mucous Membranes Moist, Normal Exam - Neck Exam Neck Exam: Full ROM, Normal Inspection. absent: Lymphadenopathy - Respiratory Exam Respiratory Exam: Clear to Ausculation Bilateral, NORMAL BREATHING PATTERN - Cardiovascular Exam Cardiovascular Exam: REGULAR RHYTHM, +S1, +S2. absent: Murmur - GI/Abdominal Exam GI & Abdominal Exam: Soft, Normal Bowel Sounds. absent: Tenderness - Rectal Exam Rectal Exam: NORMAL INSPECTION - Exam Exam: Circumcision, NORMAL INSPECTION External exam: NORMAL EXTERNAL EXAM Speculum exam: NORMAL SPECULUM EXAM Bimanual exam: NORMAL BIMANUAL EXAM - Extremities Exam Extremities Exam: Full ROM, Normal Capillary Refill, Normal Inspection. absent : Joint Swelling, Pedal Edema - Back Exam Back Exam: NORMAL INSPECTION - Neurological Exam Neurological Exam: Alert, Awake, CN II-XII Intact, Normal Gait, Oriented x3 - Psychiatric Exam Psychiatric exam: Normal Affect, Normal Mood - Skin Skin Exam: Dry, Intact, Normal Color, Warm - Additional Findings Additional findings: CT Chest : IMPRESSION: Airspace consolidation at the posterior lower portion of the right lung upper lobe contains air bronchogram. The differential diagnosis includes pneumonia . Re- demonstration of scattered foci of ground-glass opacities in the lungs. Findings are nonspecific and the possibility of pneumonitis such as hypersensitivity pneumonitis should be considered. Mildly enlarged main pulmonary artery. Assessment and Plan (1) Pneumonia Status: Acute
--- NOTE | 2017-02-08 23:35 | CP.PCM.CON ---
History of Present Illness - History of Present Illness History of Present Illness: Acute Resp Insuff 2/2 COPD Ex. PNA Chest Pain Syndrome 46 y/o with PMhx of smoking, B. Asthma/COPD? admitted for chest pain, sob, and sputum production. NKDA Intermittent smoker. Fam Hx Non Cont. for Pulmonary d/o's. PE: Vss O2 Sat 98 on Room Air. Head: neg adeno pos nyla Heart: RRR Ns1s2 pos 2/6 mitral M Lungs: clear to a and p Ext: No c,c, + 1 pedal edema Neuro GNF X-ray c/w with infiltrate in upper lobe. Labs: see below Plan: Patient saturating well on room air. Would plan on d/c tomorrow from Pulmo point of view. Change steroids to Medrol deshawn. Cont JOSEY prn. F/u with [facility]. PO Abx. Signing out of case. DVT Px while in hospital. Past Patient History - Infectious Disease Hx of Infectious Diseases: None - Tetanus Immunizations Tetanus Immunization: Unknown - Past Medical History & Family History Past Medical History?: Yes Past Family History: Reviewed and not pertinent - Past Social History Smoking Status: Light Smoker < 10 Cigarettes Daily Alcohol: None Drugs: Denies - CARDIAC Hx Hypertension: No - PULMONARY Hx Asthma: Yes Hx Chronic Obstructive Pulmonary Disease (COPD): Yes - NEUROLOGICAL Hx Seizures: Yes - HEENT Hx HEENT Problems: No - RENAL Hx Chronic Kidney Disease: No - ENDOCRINE/METABOLIC Hx Endocrine Disorders: No - HEMATOLOGICAL/ONCOLOGICAL Hx Human Immunodeficiency Virus (HIV): No - INTEGUMENTARY Hx Dermatological Problems: No - MUSCULOSKELETAL/RHEUMATOLOGICAL Hx Fractures: Yes (skull, clavical, bilateral jaw, pelvis, right femur) - GASTROINTESTINAL Hx Gastrointestinal Disorders: No - GENITOURINARY/GYNECOLOGICAL Hx Sexually Transmitted Disorders: No - PSYCHIATRIC Hx Psychophysiologic Disorder: Yes Hx Substance Use: Yes - SURGICAL HISTORY Hx Coronary Artery Bypass Graft: Yes - ANESTHESIA Hx Anesthesia: Yes Hx Anesthesia Reactions: No Hx Malignant Hyperthermia: No Meds Allergies/Adverse Reactions: Allergies Allergy/AdvReac Type Severity Reaction Status Date / Time No Known Allergies Allergy Verified 02/06/17 17:36 - Medications Medications: Current Medications Acetaminophen (Tylenol 325mg Tab) 650 mg PO Q4 PRN PRN Reason: Temperature >101.0 Last Admin: 02/07/17 13:33 Dose: 650 mg Acetaminophen (Tylenol 325mg Tab) 325 mg PO Q6 PRN PRN Reason: pain Albuterol/Ipratropium (Duoneb 3 Mg/0.5 Mg (3 Ml) Ud) 3 ml INH RQ4 [facility] Last Admin: 02/08/17 19:41 Dose: 3 ml Haloperidol Lactate (Haldol) 2 mg IM Q6 PRN PRN Reason: Agitation Last Admin: 02/07/17 21:56 Dose: 2 mg Heparin Sodium (Porcine) (Heparin) 5,000 units SC Q8 YURY PRN Reason: Protocol Last Admin: 02/08/17 17:21 Dose: 5,000 units Azithromycin 500 mg/ Sodium (Chloride) 250 mls @ 250 mls/hr IVPB DAILY [facility] Last Admin: 02/08/17 11:34 Dose: 250 mls/hr Ceftriaxone Sodium 1 gm/ (Sodium Chloride) 100 mls @ 100 mls/hr IVPB DAILY [facility] Last Admin: 02/08/17 08:42 Dose: 100 mls/hr Methylprednisolone 60 mg/ (Sodium Chloride) 50 mls @ 100 mls/hr IVPB Q6 [facility] Last Admin: 02/08/17 21:54 Dose: 100 mls/hr Vancomycin HCl 1 gm/ Sodium (Chloride) 250 mls @ 166.667 mls/hr IVPB Q12 [facility] Last Admin: 02/08/17 20:29 Dose: 166.667 mls/hr Phenytoin Sodium (Dilantin) 100 mg PO TID [facility] Last Admin: 02/08/17 17:21 Dose: 100 mg Results - Vital Signs Recent Vital Signs: Last Vital Signs Temp 98.3 F 02/08/17 19:34 Pulse 91 H 02/08/17 20:34 Resp 20 02/08/17 19:34 BP 130/81 02/08/17 17:00 Pulse Ox 99 02/08/17 19:34 - Labs Result Diagrams: 02/07/17 08:45 02/07/17 08:45
[2017-02-09 00:01] VITALS: RESP 18
[2017-02-09] MEDS: Albuterol-Ipratrop 3 mg / 0.5 (3 ml) UD INH SCH ×3 (00:12→07:31)
[2017-02-09] MEDS: methylPREDNISolone 60 MG in Sodium Chloride 0.9% 50 ML IVPB SCH (04:01)
[2017-02-09 04:54] VITALS: BP 126/82; PULSE 88; TEMP 97.7; O2SAT 95
== END 2017-02-09 07:35 | disposition home or self-care (01) | DRG 541 ==
LOC: H.ER 22:58 → H.ERHOLD 02-07 03:12 → H.ICU/CCU 02-07 03:41 → H.TEL 02-07 18:25
PROVIDERS: ADMIT Internal Medicine; ATTEND Internal Medicine
PROC: 3E0F73Z Introduction of Anti-inflammatory into Respiratory Tract, Via Natural or Artificial Opening (ICD-10-PCS; principal; 2017-02-07)
DX: J44.0 Chronic obstructive pulmonary disease with (acute) lower respiratory infection (principal); J18.9 Pneumonia, unspecified organism; R09.02 Hypoxemia; J20.9 Acute bronchitis, unspecified; J44.1 Chronic obstructive pulmonary disease with (acute) exacerbation; I25.10 Atherosclerotic heart disease of native coronary artery without angina pectoris; F17.210 Nicotine dependence, cigarettes, uncomplicated; Z95.1 Presence of aortocoronary bypass graft; Z59.0 Homelessness

== ENCOUNTER 2017-02-12 09:31 | Emergency (ER) | payer MEDICAID ==
[2017-02-12 09:32] VITALS: BMI 34.4
[2017-02-12 10:07] VITALS: RESP 18; TEMP 97; O2SAT 100
[2017-02-12] MEDS ORDERED: Sodium Chloride 0.9% 500 ML IV STA (10:10)
--- NOTE | 2017-02-12 10:31 | ED PDOC ---
HPI: General Adult Time Seen by Provider: 02/12/17 09:43 Chief Complaint (Nursing): Med Refill Chief Complaint (Provider): medication refill History Per: Patient History/Exam Limitations: no limitations Onset/Duration Of Symptoms: Days (months) Current Symptoms Are (Timing): Still Present Additional Complaint(s): Pt. here for refill of his dilantin. States he has not taken it for 1 week as he ran out. Gets his refills from the ER. States he takes 100mg 3x a day. Denies any symptoms like chest pain, dyspnea, weakness, dizziness, numbness, tingles, vomit. Has first appt with clinic in [place] next month. Denies drugs or etoh. Past Medical History Reviewed: Nursing Documentation, Vital Signs Vital Signs: Last Vital Signs Temp 97 F L 02/12/17 09:45 Pulse 127 H 02/12/17 09:45 Resp 18 02/12/17 09:45 BP 146/85 02/12/17 09:45 Pulse Ox 100 02/12/17 10:34 - Medical History PMH: Asthma, CAD, COPD, Fractures (skull, clavical, bilateral jaw, pelvis, right femur), Pneumonia, Seizures Denies: Diabetes, Hepatitis, HIV, HTN, Chronic Kidney Disease, Sexually Transmitted Disease - Surgical History Surgical History: CABG - Family History Family History: States: Unknown Family Hx - Social History Current smoker - smoking cessation education provided: No Alcohol: None Drugs: Denies - Home Medications Home Medications: Ambulatory Orders Medication Instructions Recorded Phenytoin, Extended [Dilantin] 100 mg PO TID #90 tab 02/04/17 Levofloxacin [Levaquin] 500 mg PO DAILY #5 tablet 02/09/17 Methylprednisolone [Medrol Dose 4 mg PO DAILY #21 mg 02/09/17 Pack (21 tabs)] - Allergies Allergies/Adverse Reactions: Allergies Allergy/AdvReac Type Severity Reaction Status Date / Time No Known Allergies Allergy Verified 02/06/17 17:36 Review of Systems ROS Statement: Except As Marked, All Systems Reviewed And Found Negative Physical Exam - Reviewed Nursing Documentation Reviewed: Yes Vital Signs Reviewed: Yes - Physical Exam Appears: Positive for: Well, Non-toxic, No Acute Distress Head Exam: Positive for: ATRAUMATIC, NORMAL INSPECTION, NORMOCEPHALIC Skin: Positive for: Normal Color, Warm, DRY Eye Exam: Positive for: EOMI, Normal appearance, PERRL ENT: Positive for: Normal ENT Inspection Neck: Positive for: Normal, Painless ROM Cardiovascular/Chest: Positive for: Regular Rate, Rhythm Respiratory: Positive for: CNT, Normal Breath Sounds Gastrointestinal/Abdominal: Positive for: Normal Exam, Bowel Sounds, Soft. Negative for: Tenderness Back: Positive for: Normal Inspection. Negative for: L CVA Tenderness, R CVA Tenderness Extremity: Positive for: Normal ROM. Negative for: Tenderness, Pedal Edema Neurologic/Psych: Positive for: Alert, nurse midwife/clinical instructor II-XII, Oriented. Negative for: Motor/Sensory Deficits - Laboratory Results Result Diagrams: 02/12/17 10:35 - ECG O2 Sat by Pulse Oximetry: 100 - Progress ED Course And Treament: 1134: Stable when last seen. Pt. left ER and can't be found. Pt. was ambulating when last seen. Told nurse prior he is on probation and should be in [place] or will get arrested. Disposition - Clinical Impression Clinical Impression: Medication refill - Disposition Disposition: Left W/O Treatment Disposition Time: 11:15 Condition: STABLE
[2017-02-12 11:14] LABS: BASO # 0.1 K/uL (0.0-0.2); BASO % 1.4 % (0.0-2.0); EOS # 0.2 K/uL (0.0-0.7); EOS % 2.7 % (0.0-4.0); LYMPH # 1.6 K/uL (1.0-4.3); LYMPH % 21.9 % (20.0-40.0); MEAN CELL VOLUME 93.5 fl (80.0-94.0); MEAN CORPUSCULAR HEMOGLOBIN 30.5 pg (27.0-31.0); MEAN CORPUSCULAR HGB CONC 32.6 g/dL (33.0-37.0); MEAN PLATELET VOLUME 8.3 fl (7.2-11.7); MONO # 0.8 K/uL (0.0-0.8); MONO % 11.6 % (0.0-10.0); NEUT # 4.5 K/uL (1.8-7.0); NEUT % 62.4 % (50.0-75.0); NRBC % 0.3 % (0.0-0.0); RED CELL DISTRIBUTION WIDTH 13.6 % (11.5-14.5); WHITE BLOOD COUNT 7.2 K/uL (4.8-10.8)
[2017-02-12 11:21] LABS: ALCOHOL SERUM < 10 mg/dl (0-10); BLOOD UREA NITROGEN 14 mg/dl (9-20); CALCIUM 9.1 mg/dL (8.4-10.2); CARBON DIOXIDE 26 mmol/L (22-30); CHLORIDE 103 mmol/L (98-107); GFR AFRICAN-AMERICAN > 60; GLUCOSE,RANDOM 88 mg/dL (75-110); SODIUM 140 mmol/l (132-148)
[2017-02-12 11:33] VITALS: BP 144/90; PULSE 100
[2017-02-12 11:37] LABS: POTASSIUM 4.8 MMOL/L (3.6-5.0)
== END 2017-02-12 11:34 | disposition left against medical advice (07) ==
LOC: H.ER 09:31
DX: Z76.0 Encounter for issue of repeat prescription (principal); I25.10 Atherosclerotic heart disease of native coronary artery without angina pectoris; Z95.1 Presence of aortocoronary bypass graft
CPT/HCPCS: 80048; 80185; 80320; 80324; 80345; 80346; 80349; 80353; 80358; 80361; 83992; 84484; 85025; 99281; J7040

== ENCOUNTER 2017-02-23 21:53 | Emergency (ER) | payer MEDICAID ==
[2017-02-23 21:54] VITALS: BMI 34.4
[2017-02-23 22:01] VITALS: RESP 18
[2017-02-23] MEDS ORDERED: Albuterol-Ipratrop 3 mg / 0.5 (3 ml) UD INH STA (22:24)
--- NOTE | 2017-02-23 22:27 | ED PDOC ---
HPI: General Adult Time Seen by Provider: 02/23/17 22:25 Chief Complaint (Nursing): Abdominal Pain Chief Complaint (Provider): chest pain/abdominal pain History Per: Patient (46 y/o male undomiciled here with complaint of chest pain/ abdominal pain x months. Notes intermittent coughing. Admits smoking. Has h/o cardiac sx age 6. Denies any vomiting/etc.) Past Medical History Reviewed: Historical Data, Nursing Documentation, Vital Signs Vital Signs: Last Vital Signs Temp 98 F 02/23/17 23:44 Pulse 98 H 02/23/17 23:44 Resp 18 02/23/17 23:44 BP 106/51 L 02/23/17 23:44 Pulse Ox 96 02/24/17 00:35 - Medical History PMH: Asthma, CAD, COPD, Fractures (skull, clavical, bilateral jaw, pelvis, right femur), Pneumonia, Seizures Denies: Diabetes, Hepatitis, HIV, HTN, Chronic Kidney Disease, Sexually Transmitted Disease - Surgical History Surgical History: CABG - Family History Family History: States: Unknown Family Hx - Home Medications Home Medications: Ambulatory Orders Medication Instructions Recorded Phenytoin, Extended [Dilantin] 100 mg PO TID #90 tab 02/04/17 Levofloxacin [Levaquin] 500 mg PO DAILY #5 tablet 02/09/17 Methylprednisolone [Medrol Dose 4 mg PO DAILY #21 mg 02/09/17 Pack (21 tabs)] Albuterol HFA [Ventolin HFA 90 2 puff IH [id number] PRN #1 inhaler 02/24/17 mcg/actuation (8 g)] Omeprazole Magnesium [Prilosec Otc] 20 mg PO DAILY #14 tablet. 02/24/17 Prednisone [Deltasone] 3 tab PO DAILY #12 tablet 02/24/17 - Allergies Allergies/Adverse Reactions: Allergies Allergy/AdvReac Type Severity Reaction Status Date / Time No Known Allergies Allergy Verified 02/13/17 13:17 Review of Systems ROS Statement: Except As Marked, All Systems Reviewed And Found Negative Physical Exam - Reviewed Nursing Documentation Reviewed: Yes Vital Signs Reviewed: Yes - Physical Exam Appears: Positive for: Well, Non-toxic, No Acute Distress Head Exam: Positive for: ATRAUMATIC, NORMAL INSPECTION, NORMOCEPHALIC Skin: Positive for: Normal Color, Warm, DRY Eye Exam: Positive for: EOMI, Normal appearance, PERRL ENT: Positive for: Normal ENT Inspection Neck: Positive for: Normal, Painless ROM Cardiovascular/Chest: Positive for: Regular Rate, Rhythm Respiratory: Positive for: Normal Breath Sounds, Rhonchi, Wheezing Gastrointestinal/Abdominal: Positive for: Normal Exam, Bowel Sounds, Soft, Tenderness (tender LUQ) Back: Positive for: Normal Inspection Extremity: Positive for: Normal ROM Neurologic/Psych: Positive for: Alert, Oriented - Laboratory Results Result Diagrams: 02/23/17 23:30 02/23/17 23:30 - ECG ECG Rhythm: Positive for: Sinus Tachycardia (113 bpm no ectopy no acute changes) O2 Sat by Pulse Oximetry: 96 - Progress ED Course And Treament: CXR: NAD Disposition - Clinical Impression Clinical Impression: Abdominal pain, Gastritis, Asthma - Patient ED Disposition Is Patient to be Admitted: No - Disposition Disposition: Routine/Home Disposition Time: 00:38 Condition: FAIR Prescriptions: Albuterol HFA [Ventolin HFA 90 mcg/actuation (8 g)] 2 puff IH [id number] PRN #1 inhaler PRN Reason: Shortness Of Breath Omeprazole Magnesium [Prilosec Otc] 20 mg PO DAILY #14 tablet. Prednisone [Deltasone] 3 tab PO DAILY #12 tablet Instructions: Asthma (DC), Gastritis (DC) Forms: [employer] (Belarusian)
[2017-02-23] MEDS ORDERED: Sodium Chloride 0.9% 1,000 ML IV SCH (22:30)
[2017-02-23] MEDS ORDERED: Albuterol-Ipratrop 3 mg / 0.5 (3 ml) UD ONE (23:00)
[2017-02-23 23:45] VITALS: TEMP 98
[2017-02-23 23:45] LABS: ALB/GLOB RATIO 1.3 (1.0-2.1); ALKALINE PHOSPHATASE 118 U/L (38-126); ALT/SGPT 49 U/L (21-72); AST/SGOT 41 U/L (17-59); BILIRUBIN,TOTAL 0.6 mg/dl (0.2-1.3); BLOOD UREA NITROGEN 19 mg/dl (9-20); CALCIUM 9.2 mg/dL (8.4-10.2); CARBON DIOXIDE 23 mmol/L (22-30); CHLORIDE 106 mmol/L (98-107); GFR AFRICAN-AMERICAN > 60; GLUCOSE,RANDOM 101 mg/dL (75-110); LIPASE 189 U/L (23-300); POTASSIUM 4.4 MMOL/L (3.6-5.0); SODIUM 140 mmol/l (132-148); TOTAL PROTEIN 7.2 G/DL (6.3-8.2)
[2017-02-24 00:18] LABS: BASO # 0.1 K/uL (0.0-0.2); BASO % 0.7 % (0.0-2.0); EOS # 0.2 K/uL (0.0-0.7); EOS % 2.7 % (0.0-4.0); HEMATOCRIT 44.2 % (35.0-51.0); LYMPH % 25.8 % (20.0-40.0); MEAN CELL VOLUME 92.8 fl (80.0-94.0); MEAN CORPUSCULAR HGB CONC 33.4 g/dL (33.0-37.0); MONO # 0.8 K/uL (0.0-0.8); MONO % 11.1 % (0.0-10.0); NEUT # 4.5 K/uL (1.8-7.0); NEUT % 59.7 % (50.0-75.0); NRBC % 0.5 % (0.0-0.0); RED CELL DISTRIBUTION WIDTH 13.9 % (11.5-14.5); WHITE BLOOD COUNT 7.6 K/uL (4.8-10.8)
[2017-02-24 00:35] VITALS: O2SAT 96
[2017-02-24 03:36] VITALS: BP 113/80; PULSE 95
--- NOTE | 2017-02-24 09:37 | CARD ---
APPROVED REPORT EKG Measurement Heart [id number] NV 148P58 [id number] <Conclusion> Sinus tachycardia Left axis deviation Inferior infarct, age undetermined Abnormal ECG
--- NOTE | 2017-02-24 11:09 | RAD ---
PROCEDURE: CHEST RADIOGRAPH, 1 VIEW HISTORY: sob COMPARISON: Comparison is made to 02/07/2017 FINDINGS: LUNGS: No evidence of new infiltrate or consolidation in the lungs PLEURA: No pneumothorax or pleural fluid seen. CARDIOVASCULAR: Normal. OSSEOUS STRUCTURES: Old fractures are again seen at the right ribs VISUALIZED UPPER ABDOMEN: Normal. OTHER FINDINGS: None. IMPRESSION: No active disease.
== END 2017-02-24 04:10 | disposition home or self-care (01) ==
LOC: H.ER 21:53
DX: K29.70 Gastritis, unspecified, without bleeding (principal); R10.9 Unspecified abdominal pain; J45.909 Unspecified asthma, uncomplicated
CPT/HCPCS: 71010; 80053; 83690; 84484; 85025; 93005; 96374; 96375; 99282; J2930; J7040

== ENCOUNTER 2017-02-27 09:56 | Emergency (ER) | payer MEDICAID ==
[2017-02-27 09:56] VITALS: BMI 34.4
[2017-02-27 10:01] VITALS: BP 138/84; TEMP 98
[2017-02-27 10:12] VITALS: RESP 16
--- NOTE | 2017-02-27 10:32 | ED PDOC ---
HPI: General Adult Time Seen by Provider: 02/27/17 10:17 Chief Complaint (Nursing): Med Refill History Per: Patient (Requesting refill for Dilantin. No other c/o) Severity: None Pain Scale Rating Of: 0 Past Medical History Vital Signs: Last Vital Signs Temp 98.0 F 02/27/17 10:00 Pulse 109 H 02/27/17 10:00 Resp 16 02/27/17 10:07 BP 138/84 02/27/17 10:00 Pulse Ox 96 02/27/17 10:00 - Medical History PMH: Asthma, CAD, COPD, Fractures (skull, clavical, bilateral jaw, pelvis, right femur), Pneumonia, Seizures Denies: Diabetes, Hepatitis, HIV, HTN, Chronic Kidney Disease, Sexually Transmitted Disease - Surgical History Surgical History: CABG - Family History Family History: States: Unknown Family Hx - Home Medications Home Medications: Ambulatory Orders Medication Instructions Recorded Phenytoin, Extended [Dilantin] 100 mg PO TID #90 tab 02/04/17 Levofloxacin [Levaquin] 500 mg PO DAILY #5 tablet 02/09/17 Methylprednisolone [Medrol Dose 4 mg PO DAILY #21 mg 02/09/17 Pack (21 tabs)] Albuterol HFA [Ventolin HFA 90 2 puff IH [id number] PRN #1 inhaler 02/24/17 mcg/actuation (8 g)] Omeprazole Magnesium [Prilosec Otc] 20 mg PO DAILY #14 tablet. 02/24/17 Prednisone [Deltasone] 3 tab PO DAILY #12 tablet 02/24/17 Phenytoin, Extended [Dilantin 100 mg PO TID #90 cer 02/27/17 Kapseals] - Allergies Allergies/Adverse Reactions: Allergies Allergy/AdvReac Type Severity Reaction Status Date / Time No Known Allergies Allergy Verified 02/27/17 10:07 Review of Systems Neurological: Positive for: Seizures Physical Exam - Physical Exam Appears: Positive for: Non-toxic, No Acute Distress Neurologic/Psych: Positive for: Alert, Oriented. Negative for: Motor/Sensory Deficits - ECG O2 Sat by Pulse Oximetry: 96 Disposition - Clinical Impression Clinical Impression: Seizure - Patient ED Disposition Is Patient to be Admitted: No - Disposition Referrals: [facility] [Outside] Disposition: Routine/Home Disposition Time: 10:32 Condition: FAIR Prescriptions: Phenytoin, Extended [Dilantin Kapsejoey] 100 mg PO TID #90 cer Instructions: Epilepsy (ED)
[2017-02-27 11:47] VITALS: PULSE 78; O2SAT 98
== END 2017-02-27 10:50 | disposition home or self-care (01) ==
LOC: H.ER 09:56
DX: Z76.0 Encounter for issue of repeat prescription (principal); I25.10 Atherosclerotic heart disease of native coronary artery without angina pectoris; J44.9 Chronic obstructive pulmonary disease, unspecified; Z95.1 Presence of aortocoronary bypass graft

== ENCOUNTER 2017-04-30 01:14 | Observation (INO) | payer OTHER ==
[2017-04-30 01:14] VITALS: BMI 28.1
--- NOTE | 2017-04-30 01:45 | ED PDOC ---
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 Pt reports that he was in the residential, in bed, had a seizure and woke up on the floor. Pt complaining of nasal bone swelling and bruising. As per ER record patient was not compliant with medications as he could not afford them. He also has multiple injuries in the past (multiple fractures involving the skull, mandible, clavicle, ribs, pelvis, femur). (Savannah Herrera) Past Medical History <Carson Glaser - Last Filed: 04/30/17 05:07> Reviewed: Historical Data, Nursing Documentation, Vital Signs - Medical History PMH: Asthma, CAD, COPD, Emphysema, Fractures, Pneumonia, Seizures Denies: Diabetes, Hepatitis, HIV, HTN, Chronic Kidney Disease, Sexually Transmitted Disease - Surgical History Surgical History: CABG - Family History Family History: States: Unknown Family Hx - Living Arrangements Living Arrangements: Other (residential) - Social History Current smoker - smoking cessation education provided: No Alcohol: Social Drugs: Denies <Savannah Herrera - Last Filed: 04/30/17 05:46> Vital Signs: Last Vital Signs Temp 97.6 F 04/30/17 01:31 Pulse 119 H 04/30/17 05:08 Resp 22 04/30/17 05:08 BP 137/76 04/30/17 05:08 Pulse Ox 95 04/30/17 05:42 - Home Medications Home Medications: Ambulatory Orders Medication Instructions Recorded Phenytoin, Extended [Dilantin] 100 mg PO TID #90 tab 02/04/17 Levofloxacin [Levaquin] 500 mg PO DAILY #5 tablet 02/09/17 Methylprednisolone [Medrol Dose 4 mg PO DAILY #21 mg 02/09/17 Pack (21 tabs)] Albuterol HFA [Ventolin HFA 90 2 puff IH [id number] PRN #1 inhaler 02/24/17 mcg/actuation (8 g)] Omeprazole Magnesium [Prilosec Otc] 20 mg PO DAILY #14 tablet. 02/24/17 Prednisone [Deltasone] 3 tab PO DAILY #12 tablet 02/24/17 Phenytoin, Extended [Dilantin 100 mg PO TID #90 cer 02/27/17 Kapseals] Unobtainable 03/17/17 - Allergies Allergies/Adverse Reactions: Allergies Allergy/AdvReac Type Severity Reaction Status Date / Time No Known Allergies Allergy Verified 04/30/17 01:31 Review of Systems ROS Statement: Except As Marked, All Systems Reviewed And Found Negative <Savannah Herrera - Last Filed: 04/30/17 05:46> Physical Exam - Reviewed Nursing Documentation Reviewed: Yes Vital Signs Reviewed: Yes - Physical Exam Appears: Positive for: Well, Non-toxic, No Acute Distress Head Exam: Positive for: ATRAUMATIC, NORMAL INSPECTION, NORMOCEPHALIC Skin: Positive for: Normal Color, Warm, DRY Eye Exam: Positive for: EOMI, Normal appearance, PERRL ENT: Positive for: Other (nasal bridge edema and ecchymosis) Neck: Positive for: Normal, Painless ROM Cardiovascular/Chest: Positive for: Regular Rate, Rhythm Respiratory: Positive for: CNT, Normal Breath Sounds Gastrointestinal/Abdominal: Positive for: Normal Exam, Bowel Sounds, Soft Back: Positive for: Normal Inspection Extremity: Positive for: Normal ROM Neurologic/Psych: Positive for: Alert, Oriented <Savannah Herrera - Last Filed: 04/30/17 05:46> - Laboratory Results Result Diagrams: 04/30/17 02:00 04/30/17 02:00 - Critical Care Total Time (In Min): 30 (Carson Glaser MD) <Carson Glaser - Last Filed: 04/30/17 05:07> - Laboratory Results Result Diagrams: 04/30/17 02:00 04/30/17 02:00 - ECG O2 Sat by Pulse Oximetry: 95 <Savannah Herrera - Last Filed: 04/30/17 05:46> Medical Decision Making <Carson Glaser - Last Filed: 04/30/17 05:07> <Savannah Herrera - Last Filed: 04/30/17 05:46> Medical Decision Making: IV access established and diagnotics ordered CT Maxillofacial: COMPARISON: No relevant prior studies available. FINDINGS: Bones/joints: Nondisplaced fracture RIGHT nasal bone. Nondisplaced fracture LEFT nasal bone. Chronic deformity medial wall of RIGHT orbit. Soft tissues: Facial soft tissue swelling. Orbits: Unremarkable as visualized. Sinuses: Scattered minimal mucosal thickening. No air-fluid levels. IMPRESSION: 1. Nasal fractures. 2. Incidental/non-acute findings are described above. CT Head: negative Dilantin level resulted subterapeutic. 100 mg administered IV 04:58- Pt began seizing in ED. Oxygen applied and 2 mg Ativan administered. 05:02- Seizure activity resolved 0540- Pt responding to verbal stimuli. Pt agreeable to admission Case discussed with Hospitalist dirt contractor, Dr. Church. (Savannah Herrera) Disposition <Carson Glaser - Last Filed: 04/30/17 05:07> - Patient ED Disposition Is Patient to be Admitted: Yes - Disposition Disposition Time: 05:46 - Pt Status Changed To: Hospital Disposition Of: Inpatient - Admit Certification Admit to Inpatient:: After my assessment, the patient will require hospitalization for at least two midnights. This is because of the severity of symptoms shown, intensity of services needed, and/or the medical risk in this patient being treated as an outpatient. <Savannah Herrera - Last Filed: 04/30/17 05:46> - Clinical Impression Clinical Impression: Recurrent seizures - Disposition Condition: FAIR Forms: [employer] ([place]riot)
[2017-04-30 02:13] LABS: BASO # 0.1 K/uL (0.0-0.2); BASO % 0.9 % (0.0-2.0); EOS # 0.1 K/uL (0.0-0.7); EOS % 1.2 % (0.0-4.0); LYMPH # 1.1 K/uL (1.0-4.3); LYMPH % 11.7 % (20.0-40.0); MEAN CELL VOLUME 93.1 fl (80.0-94.0); MEAN CORPUSCULAR HEMOGLOBIN 30.4 pg (27.0-31.0); MEAN CORPUSCULAR HGB CONC 32.6 g/dL (33.0-37.0); MEAN PLATELET VOLUME 8.2 fl (7.2-11.7); MONO # 0.7 K/uL (0.0-0.8); MONO % 7.5 % (0.0-10.0); NEUT # 7.6 K/uL (1.8-7.0); NEUT % 78.7 % (50.0-75.0); NRBC % 0.1 % (0.0-0.0); RED CELL DISTRIBUTION WIDTH 14.7 % (11.5-14.5); WHITE BLOOD COUNT 9.7 K/uL (4.8-10.8)
[2017-04-30 02:27] LABS: ALB/GLOB RATIO 1.4 (1.0-2.1); ALCOHOL SERUM < 10 mg/dl (0-10); ALKALINE PHOSPHATASE 94 U/L (38-126); ALT/SGPT 43 U/L (21-72); AST/SGOT 25 U/L (17-59); BILIRUBIN,TOTAL 0.2 mg/dl (0.2-1.3); BLOOD UREA NITROGEN 15 mg/dl (9-20); CALCIUM 8.8 mg/dL (8.4-10.2); CARBON DIOXIDE 27 mmol/L (22-30); CHLORIDE 106 mmol/L (98-107); GFR AFRICAN-AMERICAN > 60; GLUCOSE,RANDOM 103 mg/dL (75-110); MAGNESIUM 2.2 MG/DL (1.6-2.3); POTASSIUM 4.4 MMOL/L (3.6-5.0); SODIUM 139 mmol/l (132-148); TOTAL PROTEIN 7.2 G/DL (6.3-8.2)
[2017-04-30] MEDS ORDERED: Phenytoin 100 mg/2 ml Inj IVP STA ×2 (03:24→09:56)
[2017-04-30] MEDS ORDERED: Phenytoin 100 mg/2 ml Inj ONE (03:40)
--- NOTE | 2017-04-30 03:42 | CT ---
EXAM: CT Head Without Intravenous Contrast CLINICAL HISTORY: 46 years old, male; Injury or trauma; Fall; Additional info: Seizure, head injury TECHNIQUE: Axial computed tomography images of the head/brain without intravenous contrast. All CT scans at this facility use one or more dose reduction techniques, viz.: automated exposure control; ma/kV adjustment per patient size (including targeted exams where dose is matched to indication; i.e. head); or iterative reconstruction technique. Coronal and sagittal reformatted images were created and reviewed. COMPARISON: CT - HEAD W/O CONTRAST 2014-11-10 17:58 FINDINGS: Brain: Mild atrophy. No intracranial hemorrhage. No mass. Mild encephalomalacia within the frontal regions. Few scattered foci of decreased attenuation within periventricular/subcortical white matter. No edema. Ventricles: No hydrocephalus. Bones/joints: No calvarial fracture. Mastoid air cells: No mastoid effusion. IMPRESSION: 1. No intracranial hemorrhage. 2. Nonspecific white matter changes. 3. See facial bone CT report for additional details. 4. Incidental/non-acute findings are described above.
--- NOTE | 2017-04-30 03:45 | CT ---
EXAM: CT Maxillofacial Without Intravenous Contrast CLINICAL HISTORY: 46 years old, male; Injury or trauma; Fall; Initial encounter; Blunt trauma (contusions or hematomas); Maxilla; Additional info: Seizure, fall TECHNIQUE: Axial computed tomography images of the face without intravenous contrast. All CT scans at this facility use one or more dose reduction techniques, viz.: automated exposure control; ma/kV adjustment per patient size (including targeted exams where dose is matched to indication; i.e. head); or iterative reconstruction technique. Coronal and sagittal reformatted images were created and reviewed. COMPARISON: No relevant prior studies available. FINDINGS: Bones/joints: Nondisplaced fracture RIGHT nasal bone. Nondisplaced fracture LEFT nasal bone. Chronic deformity medial wall of RIGHT orbit. Soft tissues: Facial soft tissue swelling. Orbits: Unremarkable as visualized. Sinuses: Scattered minimal mucosal thickening. No air-fluid levels. IMPRESSION: 1. Nasal fractures. 2. Incidental/non-acute findings are described above.
[2017-04-30] MEDS ORDERED: Albuterol-Ipratrop 3 mg / 0.5 (3 ml) UD ONE (05:03)
[2017-04-30] MEDS ORDERED: Albuterol-Ipratrop 3 mg / 0.5 (3 ml) UD INH STA ×3 (05:12→06:08)
[2017-04-30] MEDS ORDERED: Sodium Chloride 0.9% 1,000 ML IV STA (05:42)
[2017-04-30 06:53] VITALS: TEMP 98
[2017-04-30 07:19] VITALS: BP 127/75; PULSE 103; RESP 18; O2SAT 92
[2017-04-30] MEDS ORDERED: Albuterol-Ipratrop 3 mg / 0.5 (3 ml) UD INH PRN (08:59)
[2017-04-30] MEDS ORDERED: Enoxaparin 40 mg Syringe SC SCH (09:00)
[2017-04-30] MEDS ORDERED: Sodium Chloride 0.9% 1,000 ML IV SCH (09:15)
[2017-04-30] MEDS ORDERED: Phenytoin 100 mg/2 ml Inj IVPB STA (09:59)
[2017-04-30] MEDS ORDERED: FOSPHENYTOIN IV ONE (10:15)
[2017-04-30] MEDS ORDERED: SODIUM CHLORIDE 0.9% IV ONE (10:15)
--- NOTE | 2017-04-30 12:04 | CARD ---
APPROVED REPORT EKG Measurement Heart [id number] <Conclusion> Normal sinus rhythm Normal ECG
== END 2017-04-30 10:32 | disposition left against medical advice (07) ==
LOC: H.ER 01:14 → H.ERHOLD 05:41
PROVIDERS: ADMIT Internal Medicine; ATTEND Internal Medicine
DX: G40.909 Epilepsy, unspecified, not intractable, without status epilepticus (principal); I25.10 Atherosclerotic heart disease of native coronary artery without angina pectoris; J43.9 Emphysema, unspecified; S02.2XXA Fracture of nasal bones, initial encounter for closed fracture; Z95.1 Presence of aortocoronary bypass graft; Z87.01 Personal history of pneumonia (recurrent); W06.XXXA Fall from bed, initial encounter; Y93.9 Activity, unspecified; Y92.9 Unspecified place or not applicable; F17.210 Nicotine dependence, cigarettes, uncomplicated
CPT/HCPCS: 70450; 70486; 80053; 80185; 80320; 83735; 85025; 93005; 96361; 96374; 96375; 99285; G0378; J1165; J2060; J2930; J7040

== ENCOUNTER 2017-05-24 09:39 | Emergency (ER) | payer OTHER ==
[2017-05-24 09:39] VITALS: BMI 28.1
[2017-05-24 09:46] VITALS: BP 141/75; PULSE 113; TEMP 98; O2SAT 94
[2017-05-24 09:54] VITALS: RESP 20
--- NOTE | 2017-05-24 10:20 | ED PDOC ---
HPI: General Adult Time Seen by Provider: 05/24/17 10:01 Chief Complaint (Nursing): Med Refill Chief Complaint (Provider): Med refill History Per: Patient Additional Complaint(s): 46 yo male with history of Seizure DO and Asthma presents to ED, ambulating with steady gait, offers no physical complaints, only requesting refill of his Dilantin. Pt due to take his medication in 1 hour. Pt also admits he has a history of multiple injuries in the past (multiple fractures involving the skull, mandible, clavicle, ribs, pelvis, femur). Past Medical History Reviewed: Nursing Documentation, Vital Signs Vital Signs: Last Vital Signs Temp 98.0 F 05/24/17 09:45 Pulse 113 H 05/24/17 09:45 Resp 20 05/24/17 09:45 BP 141/75 05/24/17 09:45 Pulse Ox 94 L 05/24/17 09:45 - Medical History PMH: Asthma, CAD, COPD, Emphysema, Fractures, Pneumonia, Seizures Denies: Diabetes, Hepatitis, HIV, HTN, Chronic Kidney Disease, Sexually Transmitted Disease - Surgical History Surgical History: CABG - Family History Family History: States: Unknown Family Hx - Living Arrangements Living Arrangements: Other - Social History Current smoker - smoking cessation education provided: Yes (1 ppd x 40+ years) Alcohol: Social Drugs: Cannabis - Home Medications Home Medications: Ambulatory Orders Medication Instructions Recorded Albuterol HFA [Ventolin HFA 90 2 puff IH [id number] PRN #1 inhaler 02/24/17 mcg/actuation (8 g)] Phenytoin, Extended [Dilantin 100 mg PO TID #90 cer 02/27/17 Yfn] - Allergies Allergies/Adverse Reactions: Allergies Allergy/AdvReac Type Severity Reaction Status Date / Time No Known Allergies Allergy Verified 05/24/17 10:06 Review of Systems ROS Statement: Except As Marked, All Systems Reviewed And Found Negative Physical Exam - Reviewed Nursing Documentation Reviewed: Yes Vital Signs Reviewed: Yes - Physical Exam Appears: Positive for: Well, Non-toxic, No Acute Distress Head Exam: Positive for: ATRAUMATIC, NORMAL INSPECTION, NORMOCEPHALIC Skin: Positive for: Normal Color, Warm, DRY Eye Exam: Positive for: EOMI, Normal appearance, PERRL ENT: Positive for: Normal ENT Inspection Neck: Positive for: Normal, Painless ROM Cardiovascular/Chest: Positive for: Regular Rate, Rhythm Respiratory: Positive for: CNT, Normal Breath Sounds Gastrointestinal/Abdominal: Positive for: Normal Exam, Bowel Sounds, Soft Back: Positive for: Normal Inspection Extremity: Positive for: Normal ROM Neurologic/Psych: Positive for: Alert, Oriented - ECG O2 Sat by Pulse Oximetry: 94 Disposition - Clinical Impression Clinical Impression: Medication refill - Patient ED Disposition Is Patient to be Admitted: No - Disposition Disposition: Routine/Home Disposition Time: 10:20 Condition: STABLE - POA Present On Arrival: None
== END 2017-05-24 10:34 | disposition home or self-care (01) ==
LOC: H.ER 09:39
DX: Z76.0 Encounter for issue of repeat prescription (principal)

== ENCOUNTER 2017-05-30 13:44 | Emergency (ER) | payer OTHER ==
[2017-05-30 13:44] VITALS: BMI 28.1
[2017-05-30 13:55] VITALS: BP 126/61; PULSE 113; RESP 18; TEMP 97; O2SAT 95
--- NOTE | 2017-05-30 14:07 | ED PDOC ---
HPI: General Adult Time Seen by Provider: 05/30/17 14:04 Chief Complaint (Nursing): Med Refill Chief Complaint (Provider): med refill, back pain History Per: Patient History/Exam Limitations: no limitations Onset/Duration Of Symptoms: Days (x2 weeks) Current Symptoms Are (Timing): Still Present Additional Complaint(s): Alonzo Lafleur is a 46 year old male who presents to the ED for a medication refill. Patient states he needs a refill for his Ventolin HFA pump. Patient is also reporting back and leg pain x2 weeks. Denies any recent injury or trauma. Patient also denies any bowel or bladder dysfunction. PMD: [facility] Past Medical History Reviewed: Historical Data, Nursing Documentation, Vital Signs Vital Signs: Last Vital Signs Temp 97 F L 05/30/17 13:52 Pulse 113 H 05/30/17 13:52 Resp 18 05/30/17 13:52 BP 126/61 05/30/17 13:52 Pulse Ox 95 05/30/17 14:15 - Medical History PMH: Asthma, CAD, COPD, Seizures - Surgical History Surgical History: CABG Other surgeries: Tracheotomy - Family History Family History: States: No Known Family Hx - Living Arrangements Living Arrangements: Other (undomiciled) - Social History Current smoker - smoking cessation education provided: Yes Alcohol: None Drugs: Cannabis - Home Medications Home Medications: Ambulatory Orders Medication Instructions Recorded Albuterol HFA [Ventolin HFA 90 2 puff IH [id number] PRN #1 inhaler 02/24/17 mcg/actuation (8 g)] Phenytoin, Extended [Dilantin 100 mg PO TID #90 cer 05/24/17 Kapseals] Albuterol HFA [Ventolin HFA 90 1 puff IH ASDIR #1 unit 05/30/17 mcg/actuation (8 g)] Cyclobenzaprine [Cyclobenzaprine 10 mg PO TID PRN #20 tab 05/30/17 HCl] Naproxen [Naprosyn] 500 mg PO BID #20 tab 05/30/17 - Allergies Allergies/Adverse Reactions: Allergies Allergy/AdvReac Type Severity Reaction Status Date / Time No Known Allergies Allergy Verified 05/24/17 10:06 Review of Systems ROS Statement: Except As Marked, All Systems Reviewed And Found Negative Constitutional: Negative for: Fever Cardiovascular: Negative for: Chest Pain Musculoskeletal: Positive for: Back Pain, Leg Pain Physical Exam - Reviewed Nursing Documentation Reviewed: Yes Vital Signs Reviewed: Yes - Physical Exam Appears: Positive for: Non-toxic, No Acute Distress Head Exam: Positive for: ATRAUMATIC Skin: Positive for: Normal Color, Warm. Negative for: Rash Eye Exam: Positive for: Normal appearance Cardiovascular/Chest: Positive for: Regular Rate, Rhythm Respiratory: Positive for: Normal Breath Sounds Back: Positive for: Vertebral Tenderness (lumbar region) Extremity: Positive for: Normal ROM Neurologic/Psych: Positive for: Alert, Oriented (x3), Gait (steady) - ECG O2 Sat by Pulse Oximetry: 95 (RA) Pulse Ox Interpretation: Normal Medical Decision Making Medical Decision Making: Time: 14:05 Initial Impression: 46 year old with low back pain, also here for med refill Plan: --Motrin 600 mg PO --Reevaluation --Upon provider evaluation patient is medically stable, and requires no further treatment in the ED at this time. Patient will be discharged home with Rx for Ventolin, Naproxen, and Cyclobenzaprine. Counseling was provided and all questions were answered regarding diagnosis and need for follow up with Clinic. There is agreement to discharge plan. Return if symptoms persist or worsen. Scribe Attestation: Documented by Iglesia Nathan, acting as a scribe for Savannah Butler PA-C Provider Scribe Attestation: All medical record entries made by the Scribe were at my direction and personally dictated by me. I have reviewed the chart and agree that the record accurately reflects my personal performance of the history, physical exam, medical decision making, and the department course for this patient. I have also personally directed, reviewed, and agree with the discharge instructions and disposition. Disposition - Clinical Impression Clinical Impression: Prescription refill, Back pain - Patient ED Disposition Is Patient to be Admitted: No Counseled Patient/Family Regarding: Need For Followup, Rx Given - Disposition Referrals: [facility] [Outside] Disposition: Routine/Home Disposition Time: 14:05 Condition: STABLE Additional Instructions: Take meds as directed. Follow up with clinic. Prescriptions: Albuterol HFA [Ventolin HFA 90 mcg/actuation (8 g)] 1 puff IH ASDIR #1 unit Cyclobenzaprine [Cyclobenzaprine HCl] 10 mg PO TID PRN #20 tab PRN Reason: Muscle Spasm Naproxen [Naprosyn] 500 mg PO BID #20 tab Instructions: Back Pain (ED), Medicine Refill (ED) Forms: [employer] (Angolan)
== END 2017-05-30 14:56 | disposition home or self-care (01) ==
LOC: H.ER 13:44
DX: Z76.0 Encounter for issue of repeat prescription (principal); M54.9 Dorsalgia, unspecified

== ENCOUNTER 2017-06-02 20:54 | Emergency (ER) | payer OTHER ==
[2017-06-02 20:55] VITALS: BMI 28.1
[2017-06-02 20:59] VITALS: BP 121/69; PULSE 75; RESP 16; TEMP 97.8; O2SAT 100
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
[2017-06-02 22:10] LABS: BASO # 0.1 K/uL (0.0-0.2); BASO % 1.4 % (0.0-2.0); EOS # 0.1 K/uL (0.0-0.7); EOS % 1.8 % (0.0-4.0); HEMOGLOBIN 14.6 g/dL (12.0-18.0); LYMPH # 1.8 K/uL (1.0-4.3); LYMPH % 28.2 % (20.0-40.0); MEAN CELL VOLUME 92.1 fl (80.0-94.0); MEAN CORPUSCULAR HEMOGLOBIN 30.6 pg (27.0-31.0); MEAN CORPUSCULAR HGB CONC 33.2 g/dL (33.0-37.0); MEAN PLATELET VOLUME 8.5 fl (7.2-11.7); MONO # 0.4 K/uL (0.0-0.8); MONO % 6.6 % (0.0-10.0); NEUT # 3.9 K/uL (1.8-7.0); NRBC % 0.2 % (0.0-0.0); RBC 4.76 Mil/uL (4.40-5.90); RED CELL DISTRIBUTION WIDTH 14.1 % (11.5-14.5); WHITE BLOOD COUNT 6.2 K/uL (4.8-10.8)
[2017-06-02 22:22] LABS: ALB/GLOB RATIO 1.3 (1.0-2.1); ALBUMIN 3.8 g/dL (3.5-5.0); ALT/SGPT 35 U/L (21-72); AST/SGOT 22 U/L (17-59); BLOOD UREA NITROGEN 12 mg/dl (9-20); CALCIUM 8.8 mg/dL (8.4-10.2); GFR AFRICAN-AMERICAN > 60; GFR NON-AFRICAN AMERICAN > 60
--- NOTE | 2017-06-03 10:11 | CARD ---
APPROVED REPORT EKG Measurement Heart [id number] IL [id number] <Conclusion> Normal sinus rhythm Left axis deviation Abnormal ECG
== END 2017-06-02 23:30 | disposition home or self-care (01) ==
LOC: H.ER 20:54
DX: G40.909 Epilepsy, unspecified, not intractable, without status epilepticus (principal); J44.9 Chronic obstructive pulmonary disease, unspecified; F17.200 Nicotine dependence, unspecified, uncomplicated; I25.10 Atherosclerotic heart disease of native coronary artery without angina pectoris; Z95.1 Presence of aortocoronary bypass graft
CPT/HCPCS: 80053; 80185; 82550; 84484; 85025; 93005; 96374; 99282; J2060

== ENCOUNTER 2017-06-09 03:46 | Emergency (ER) | payer OTHER ==
[2017-06-09 03:46] VITALS: BMI 28.1
[2017-06-09 03:51] VITALS: BP 132/73; PULSE 95; RESP 16; TEMP 98.2; O2SAT 96
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
== END 2017-06-09 04:52 | disposition home or self-care (01) ==
LOC: H.ER 03:46
DX: S01.319A Laceration without foreign body of unspecified ear, initial encounter (principal); Y04.0XXA Assault by unarmed brawl or fight, initial encounter; Y92.89 Other specified places as the place of occurrence of the external cause; J44.9 Chronic obstructive pulmonary disease, unspecified; Z95.1 Presence of aortocoronary bypass graft

== ENCOUNTER 2017-06-09 23:35 | Emergency (ER) | payer OTHER ==
[2017-06-09 23:35] VITALS: BMI 28.1
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
--- NOTE | 2017-06-10 01:09 | CT ---
EXAM: CT Head Without Intravenous Contrast CLINICAL HISTORY: 46 years old, male; Injury or trauma; Fall; Additional info: Head injury TECHNIQUE: Axial computed tomography images of the head/brain without intravenous contrast. All CT scans at this facility use one or more dose reduction techniques, viz.: automated exposure control; ma/kV adjustment per patient size (including targeted exams where dose is matched to indication; i.e. head); or iterative reconstruction technique. Coronal and sagittal reformatted images were created and reviewed. COMPARISON: CT - HEAD W/O CONTRAST 2017-04-30 03:02 FINDINGS: Brain: There is mild diffuse cerebral atrophy present, consistent with this patient's age. There is a focus of decreased density and volume loss in the frontal lobes bilaterally, consistent with encephalomalacia from a remote infarct or other insult. No hemorrhage. No significant white matter disease. Ventricles: The ventricular system demonstrates mild diffuse compensatory enlargement. Ex vacuo dilatation of the frontal horns. Bones/joints: Unremarkable. No acute fracture. Soft tissues: Unremarkable. Sinuses: Unremarkable as visualized. No acute sinusitis. Mastoid air cells: Unremarkable as visualized. No mastoid effusion. IMPRESSION: No acute intracranial findings. Bifrontal lobe encephalomalacia.
== END 2017-06-10 01:32 | disposition home or self-care (01) ==
LOC: H.ER 23:35
DX: S09.90XA Unspecified injury of head, initial encounter (principal); W19.XXXA Unspecified fall, initial encounter; Y92.89 Other specified places as the place of occurrence of the external cause; I25.10 Atherosclerotic heart disease of native coronary artery without angina pectoris; Z95.1 Presence of aortocoronary bypass graft

== ENCOUNTER 2017-06-18 21:53 | Emergency (ER) | payer OTHER ==
[2017-06-18 21:53] VITALS: BMI 28.1
[2017-06-18 22:29] VITALS: BP 118/83; PULSE 90; RESP 18; TEMP 98.3; O2SAT 95
--- NOTE | 2017-06-18 22:36 | ED PDOC ---
HPI: Dental Pain/Injury Time Seen by Provider: 06/18/17 22:30 Chief Complaint (Nursing): Dental Pain Chief Complaint (Provider): dental pain History Per: Patient Additional Complaint(s): 47-year-old male presents to emergency department for evaluation of ongoing dental pain for 2 weeks. Patient states he has not been to a dentist for years. Naprosyn has not provided adequate pain relief. Patient is tolerating liquids and solids. Patient also requesting refill for Dilantin which he is almost out of. Past Medical History Reviewed: Historical Data, Nursing Documentation, Vital Signs Vital Signs: Last Vital Signs Temp 98.3 F 06/18/17 22:26 Pulse 90 06/18/17 22:26 Resp 18 06/18/17 22:26 BP 118/83 06/18/17 22:26 Pulse Ox 95 06/18/17 22:26 - Medical History PMH: Asthma, CAD, COPD, Seizures - Surgical History Surgical History: CABG - Family History Family History: States: No Known Family Hx - Living Arrangements Living Arrangements: Other (non-domiciled) - Social History Current smoker - smoking cessation education provided: Yes Alcohol: None Drugs: Denies - Home Medications Home Medications: Ambulatory Orders Medication Instructions Recorded Albuterol HFA [Ventolin HFA 90 2 puff IH [id number] PRN #1 inhaler 02/24/17 mcg/actuation (8 g)] Phenytoin, Extended [Dilantin 100 mg PO TID #90 cer 05/24/17 Kapseals] Albuterol HFA [Ventolin HFA 90 1 puff IH ASDIR #1 unit 05/30/17 mcg/actuation (8 g)] Cyclobenzaprine [Cyclobenzaprine 10 mg PO TID PRN #20 tab 05/30/17 HCl] Naproxen [Naprosyn] 500 mg PO BID #20 tab 05/30/17 Nabumetone [Relafen] 500 mg PO BID #20 tab 06/18/17 Phenytoin, Extended [Dilantin 100 mg PO TID #90 tab 06/18/17 Kapseals] - Allergies Allergies/Adverse Reactions: Allergies Allergy/AdvReac Type Severity Reaction Status Date / Time No Known Allergies Allergy Verified 06/18/17 22:26 Review of Systems ROS Statement: Except As Marked, All Systems Reviewed And Found Negative Constitutional: Negative for: Fever ENT: Positive for: Other (dental pain) Respiratory: Negative for: Cough Gastrointestinal: Negative for: Nausea, Vomiting Physical Exam - Reviewed Nursing Documentation Reviewed: Yes Vital Signs Reviewed: Yes - Physical Exam Appears: Positive for: Non-toxic. Negative for: Well (Appears unkempt) Skin: Negative for: Rash Eye Exam: Positive for: Normal appearance ENT: Positive for: Other (Overall poor dentition, multiple molars missing from upper and lower mandibles on left and right sides, no dental abscess, airway patent, uvula midline) Cardiovascular/Chest: Positive for: Regular Rate, Rhythm Respiratory: Positive for: Normal Breath Sounds Neurologic/Psych: Positive for: Alert, Oriented - ECG O2 Sat by Pulse Oximetry: 95 Pulse Ox Interpretation: Normal Medical Decision Making Medical Decision Makin-year-old male with dental pain Plan: Oral Tylenol and IM Toradol for pain Patient given prescriptions for Relafen and refill for Dilantin. He was referred to clinic for follow-up. Disposition - Clinical Impression Clinical Impression: Dental caries, Prescription refill - Patient ED Disposition Is Patient to be Admitted: No Counseled Patient/Family Regarding: Diagnosis, Need For Followup, Rx Given - Disposition Referrals: [facility] [Outside] Disposition: Routine/Home Disposition Time: 22:43 Condition: STABLE Additional Instructions: Take prescription medications as directed. Follow up as soon as possible with clinic. Prescriptions: Nabumetone [Relafen] 500 mg PO BID #20 tab Phenytoin, Extended [Dilantin Kapseals] 100 mg PO TID #90 tab Instructions: Medicine Refill (ED), Dental Caries (ED) Forms: [employer] (Romansh)
== END 2017-06-18 23:05 | disposition home or self-care (01) ==
LOC: H.ER 21:53
DX: K02.9 Dental caries, unspecified (principal); Z76.0 Encounter for issue of repeat prescription; F17.200 Nicotine dependence, unspecified, uncomplicated; Z95.1 Presence of aortocoronary bypass graft; I25.10 Atherosclerotic heart disease of native coronary artery without angina pectoris; J44.9 Chronic obstructive pulmonary disease, unspecified
CPT/HCPCS: 96372; 99282; J1885

== ENCOUNTER 2017-06-19 10:27 | Emergency (ER) | payer OTHER ==
[2017-06-19 10:27] VITALS: BMI 28.1
[2017-06-19 10:38] VITALS: BP 154/98; PULSE 86; RESP 20; TEMP 97.1; O2SAT 97
--- NOTE | 2017-06-19 11:28 | ED PDOC ---
HPI: Dental Pain/Injury Time Seen by Provider: 06/19/17 11:10 Chief Complaint (Nursing): Med Refill Chief Complaint (Provider): Contunied dental pain, right upper History Per: Patient History/Exam Limitations: no limitations Onset/Duration Of Symptoms: Days Additional Complaint(s): Pt continued dental pain. Pt states he has been taking NSAIDs without pain relief. Pt has not yet followed up with dentist or PMD. No fever/chills. no facial edema. Past Medical History Reviewed: Historical Data, Nursing Documentation, Vital Signs Vital Signs: Last Vital Signs Temp 97.1 F L 06/19/17 11:08 Pulse 86 06/19/17 11:08 Resp 20 06/19/17 11:08 BP 154/98 H 06/19/17 11:08 Pulse Ox 97 06/19/17 11:08 - Medical History PMH: Asthma, CAD, COPD, Emphysema, Fractures, Pneumonia, Seizures Denies: Diabetes, Hepatitis, HIV, HTN, Chronic Kidney Disease, Sexually Transmitted Disease - Surgical History Surgical History: CABG - Family History Family History: States: Unknown Family Hx - Home Medications Home Medications: Ambulatory Orders Medication Instructions Recorded Albuterol HFA [Ventolin HFA 90 2 puff IH [id number] PRN #1 inhaler 02/24/17 mcg/actuation (8 g)] Phenytoin, Extended [Dilantin 100 mg PO TID #90 cer 05/24/17 Kapseals] Albuterol HFA [Ventolin HFA 90 1 puff IH ASDIR #1 unit 05/30/17 mcg/actuation (8 g)] Cyclobenzaprine [Cyclobenzaprine 10 mg PO TID PRN #20 tab 05/30/17 HCl] Naproxen [Naprosyn] 500 mg PO BID #20 tab 05/30/17 Nabumetone [Relafen] 500 mg PO BID #20 tab 06/18/17 Phenytoin, Extended [Dilantin 100 mg PO TID #90 tab 06/18/17 Kapseals] - Allergies Allergies/Adverse Reactions: Allergies Allergy/AdvReac Type Severity Reaction Status Date / Time No Known Allergies Allergy Verified 06/19/17 11:07 Review of Systems ROS Statement: Except As Marked, All Systems Reviewed And Found Negative Constitutional: Negative for: Fever, Chills ENT: Positive for: Other Physical Exam - Reviewed Nursing Documentation Reviewed: Yes Vital Signs Reviewed: Yes - Physical Exam Appears: Positive for: Well, Non-toxic, No Acute Distress Head Exam: Positive for: ATRAUMATIC, NORMAL INSPECTION, NORMOCEPHALIC Skin: Positive for: Normal Color, Warm, DRY Eye Exam: Positive for: Normal appearance ENT: Positive for: Normal ENT Inspection, Other (Moderate dental decay, no abscess formation) Neck: Positive for: Normal, Painless ROM Cardiovascular/Chest: Positive for: Regular Rate, Rhythm Respiratory: Positive for: Normal Breath Sounds. Negative for: Accessory Muscle Use Back: Positive for: Normal Inspection Extremity: Positive for: Normal ROM Neurologic/Psych: Positive for: Alert, Oriented - ECG O2 Sat by Pulse Oximetry: 97 Disposition - Clinical Impression Clinical Impression: Pain, dental - Patient ED Disposition Is Patient to be Admitted: No Counseled Patient/Family Regarding: Diagnosis, Need For Followup - Disposition Disposition: Routine/Home Disposition Time: 11:28 Condition: GOOD Additional Instructions: Please follow-up with dentist or dental clinic. Instructions: Toothache (ED)
== END 2017-06-19 11:45 | disposition home or self-care (01) ==
LOC: H.ER 10:27
DX: K08.89 Other specified disorders of teeth and supporting structures (principal); I25.10 Atherosclerotic heart disease of native coronary artery without angina pectoris; Z95.1 Presence of aortocoronary bypass graft; J44.9 Chronic obstructive pulmonary disease, unspecified

== ENCOUNTER 2017-06-19 13:06 | Emergency (ER) | payer OTHER ==
[2017-06-19 13:06] VITALS: BMI 28.1
[2017-06-19 13:45] VITALS: BP 132/93; PULSE 87; RESP 16; TEMP 97.9; O2SAT 94
--- NOTE | 2017-06-19 14:06 | ED PDOC ---
HPI: Dental Pain/Injury Time Seen by Provider: 06/19/17 13:59 Chief Complaint (Nursing): Pain, Chronic Chief Complaint (Provider): Dental Pain History Per: Patient History/Exam Limitations: no limitations Onset/Duration Of Symptoms: Days (x 2 months) Current Symptoms Are (Timing): Still Present Additional Complaint(s): 47 y/o male presents to the emergency department complaining of dental pain on the right lower side. No associated fever or chills. Was seen here earlier today and offered pain medication, but patient states he left because he was in too much pain. Patient has been prescribed Naprosyn and Nabumetone, and reports hes been taking the Naprosyn without relief. Requesting additional medications for pain. PMD: None Past Medical History Reviewed: Historical Data, Nursing Documentation, Vital Signs Vital Signs: Last Vital Signs Temp 97.9 F 06/19/17 13:44 Pulse 87 06/19/17 13:44 Resp 16 06/19/17 13:44 BP 132/93 H 06/19/17 13:44 Pulse Ox 94 L 06/19/17 13:44 - Medical History PMH: Asthma, CAD, COPD, Emphysema, Fractures, Pneumonia, Seizures Denies: Diabetes, Hepatitis, HIV, HTN, Chronic Kidney Disease, Sexually Transmitted Disease - Surgical History Surgical History: CABG - Family History Family History: States: Unknown Family Hx - Home Medications Home Medications: Ambulatory Orders Medication Instructions Recorded Albuterol HFA [Ventolin HFA 90 2 puff IH [id number] PRN #1 inhaler 02/24/17 mcg/actuation (8 g)] Phenytoin, Extended [Dilantin 100 mg PO TID #90 cer 05/24/17 Kapseals] Albuterol HFA [Ventolin HFA 90 1 puff IH ASDIR #1 unit 05/30/17 mcg/actuation (8 g)] Cyclobenzaprine [Cyclobenzaprine 10 mg PO TID PRN #20 tab 05/30/17 HCl] Naproxen [Naprosyn] 500 mg PO BID #20 tab 05/30/17 Nabumetone [Relafen] 500 mg PO BID #20 tab 06/18/17 Phenytoin, Extended [Dilantin 100 mg PO TID #90 tab 06/18/17 Kapseals] Penicillin VK [Penicillin VK Tab] 500 mg PO Q6H PRN #28 tab 06/19/17 - Allergies Allergies/Adverse Reactions: Allergies Allergy/AdvReac Type Severity Reaction Status Date / Time No Known Allergies Allergy Verified 06/19/17 13:44 Review of Systems ROS Statement: Except As Marked, All Systems Reviewed And Found Negative Constitutional: Negative for: Fever, Chills ENT: Positive for: Other (dental pain) Physical Exam - Reviewed Nursing Documentation Reviewed: Yes Vital Signs Reviewed: Yes - Physical Exam Appears: Positive for: Well, Non-toxic, No Acute Distress Head Exam: Positive for: ATRAUMATIC, NORMAL INSPECTION, NORMOCEPHALIC Skin: Positive for: Normal Color, Warm, Dry Eye Exam: Positive for: EOMI, Normal appearance, PERRL ENT: Positive for: Other (Poor dentition with dental caries. Right lower molar noted with no signs of gingival swelling or abscess) Neck: Positive for: Normal, Painless ROM, Supple Neurologic/Psych: Positive for: Alert, Oriented - ECG O2 Sat by Pulse Oximetry: 94 Medical Decision Making Medical Decision Making: Time: 14:04 Initial Impression: Dental pain Initial Plan: * Tylenol 650 mg PO Upon provider evaluation patient is medically stable, and requires no further treatment in the ED at this time. Patient will be discharged home with Rx for penicillin. Counseling was provided and all questions were answered regarding diagnosis and need for follow up with dentist. There is agreement to discharge plan. Return if symptoms persist or worsen. Scribe Attestation: Documented by Shelby Schuler, acting as a scribe for Conchis Byrd PA-C Provider Scribe Attestation: All medical record entries made by the Scribe were at my direction and personally dictated by me. I have reviewed the chart and agree that the record accurately reflects my personal performance of the history, physical exam, medical decision making, and the department course for this patient. I have also personally directed, reviewed, and agree with the discharge instructions and disposition. Disposition - Clinical Impression Clinical Impression: Pain, dental - Patient ED Disposition Is Patient to be Admitted: No Counseled Patient/Family Regarding: Diagnosis, Need For Followup - Disposition Referrals: Dread Hernandez DDS [Staff Provider] - Disposition: Routine/Home Disposition Time: 14:10 Condition: FAIR Prescriptions: Penicillin VK [Penicillin VK Tab] 500 mg PO Q6H PRN #28 tab PRN Reason: Pain, Moderate (4-7) Instructions: Toothache (ED) Forms: [facility] (Chinese)
== END 2017-06-19 14:47 | disposition home or self-care (01) ==
LOC: H.ER 13:06
DX: K08.89 Other specified disorders of teeth and supporting structures (principal)

== ENCOUNTER 2017-06-19 16:07 | Emergency (ER) | payer OTHER ==
[2017-06-19 16:07] VITALS: BMI 28.1
[2017-06-19 16:46] VITALS: BP 138/84; PULSE 93; RESP 16; TEMP 98; O2SAT 100
[2017-06-19] MEDS ORDERED: predniSONE 5 mg/5 mL Oral Soln UD PO STA (16:53)
[2017-06-19] MEDS ORDERED: Albuterol-Ipratrop 3 mg / 0.5 (3 ml) UD INH STA (16:53)
--- NOTE | 2017-06-19 17:35 | ED PDOC ---
HPI: Asthma Time Seen by Provider: 06/19/17 16:45 Chief Complaint (Nursing): Chest Pain Chief Complaint (Provider): chest tightness History Per: Patient History/Exam Limitations: no limitations Associated Symptoms: Cough. denies: Fever, Chest Pain Precipitating Factors: Weather Change, Ran Out Of Medications Additional Complaint(s): 47yo male known to ED for frequent visits, today presents for third visit now c/ o chest tightness and asthma symptoms. Earlier stated had dental pain. Denies syncope, orthopnea or leg edema. 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 - Asthma History Date Of Last ED Visit: 06/19/17 Medication Use: Ran Out Rescue Medications: None Past Medical History Reviewed: Historical Data, Nursing Documentation, Vital Signs Vital Signs: Last Vital Signs Temp 98.0 F 06/19/17 16:44 Pulse 93 H 06/19/17 16:44 Resp 16 06/19/17 16:44 BP 138/84 06/19/17 16:44 Pulse Ox 100 06/19/17 16:44 - Medical History PMH: Asthma, CAD, COPD, Emphysema, Fractures, Pneumonia, Seizures Denies: Diabetes, Hepatitis, HIV, HTN, Chronic Kidney Disease, Sexually Transmitted Disease - Surgical History Surgical History: CABG - Family History Family History: States: Unknown Family Hx - Living Arrangements Living Arrangements: Other (detention) - Social History Current smoker - smoking cessation education provided: Yes - Home Medications Home Medications: Ambulatory Orders Medication Instructions Recorded Albuterol HFA [Ventolin HFA 90 2 puff IH [id number] PRN #1 inhaler 02/24/17 mcg/actuation (8 g)] Phenytoin, Extended [Dilantin 100 mg PO TID #90 cer 05/24/17 Kapseals] Albuterol HFA [Ventolin HFA 90 1 puff IH ASDIR #1 unit 05/30/17 mcg/actuation (8 g)] Cyclobenzaprine [Cyclobenzaprine 10 mg PO TID PRN #20 tab 05/30/17 HCl] Naproxen [Naprosyn] 500 mg PO BID #20 tab 05/30/17 Nabumetone [Relafen] 500 mg PO BID #20 tab 06/18/17 Phenytoin, Extended [Dilantin 100 mg PO TID #90 tab 06/18/17 Kapseals] Albuterol HFA [Ventolin HFA 90 1 - 2 puff IH Q4 PRN #1 inhaler 06/19/17 mcg/actuation (8 g)] Albuterol HFA [Ventolin HFA 90 2 puff IH [id number] PRN #1 inhaler 06/19/17 mcg/actuation (8 g)] Ibuprofen [Motrin Tab] 600 mg PO Q6 PRN #15 tab 06/19/17 Penicillin VK [Penicillin VK Tab] 500 mg PO Q6H PRN #28 tab 06/19/17 Prednisone 50 mg PO DAILY #4 tab 06/19/17 - Allergies Allergies/Adverse Reactions: Allergies Allergy/AdvReac Type Severity Reaction Status Date / Time No Known Allergies Allergy Verified 06/19/17 13:44 Review of Systems Constitutional: Negative for: Fever Eyes: Negative for: Vision Change ENT: Positive for: Mouth Pain Cardiovascular: Negative for: Chest Pain Respiratory: Positive for: Cough, Wheezing Gastrointestinal: Negative for: Abdominal Pain Musculoskeletal: Negative for: Neck Pain Neurological: Negative for: Weakness, Numbness Physical Exam - Reviewed Nursing Documentation Reviewed: Yes Vital Signs Reviewed: Yes - Physical Exam Appears: Positive for: Well, Non-toxic Head Exam: Positive for: ATRAUMATIC Skin: Positive for: Normal Color, Warm, Dry Eye Exam: Negative for: Periorbital swelling ENT: Positive for: Other (poor dentition) Neck: Positive for: Painless ROM Cardiovascular/Chest: Negative for: Tachycardia Respiratory: Positive for: Wheezing. Negative for: Rales, Rhonchi, Stridor, Respiratory Distress Extremity: Positive for: Swelling (trace) Neurologic/Psych: Positive for: Mood/Affect (fair insight, manipulative ), Gait (stable). Negative for: Motor/Sensory Deficits - ECG O2 Sat by Pulse Oximetry: 100 Medical Decision Making Medical Decision Making: prior charts reviewed revealing multiple visits Patient triaged and called 911 multiple times from Waiting room stating he wasnt being seen rapidly enough. Left ED earlier prior to discharge when narcotic pain medication would not be prescribed. Requesting food from fellow patients and ED staff. Gait stable, patient is likely bed seeking with multiple visits for multiple complaints. Lungs improved after duoneb, given prednisone, Rx motrin 600mg for dental pain and stable for discharge from ED. Disposition - Clinical Impression Clinical Impression: Asthma - Patient ED Disposition Is Patient to be Admitted: No Counseled Patient/Family Regarding: Studies Performed, Diagnosis, Need For Followup, Rx Given, Smoking Cessation - Disposition Disposition: Routine/Home Disposition Time: 17:39 Condition: STABLE Additional Instructions: Followup with PMD in 1-3 days. Return to ER for any concern, worse or new symptoms/. Prescriptions: Albuterol HFA [Ventolin HFA 90 mcg/actuation (8 g)] 1 - 2 puff IH Q4 PRN #1 inhaler PRN Reason: Shortness Of Breath Ibuprofen [Motrin Tab] 600 mg PO Q6 PRN #15 tab PRN Reason: Pain, Moderate (4-7) Prednisone 50 mg PO DAILY #4 tab Instructions: Asthma (ED) Forms: [employer] (Portuguese)
--- NOTE | 2017-06-20 14:26 | CARD ---
APPROVED REPORT EKG Measurement Heart [id number] <Conclusion> Normal sinus rhythm Left anterior fascicular block Abnormal ECG
== END 2017-06-19 17:35 | disposition home or self-care (01) ==
LOC: H.ER 16:07
DX: J45.909 Unspecified asthma, uncomplicated (principal)

== ENCOUNTER 2017-06-24 10:02 | Emergency (ER) | payer OTHER ==
[2017-06-24 10:03] VITALS: BMI 28.1
[2017-06-24 10:44] VITALS: BP 137/93; PULSE 83; RESP 18; TEMP 98; O2SAT 94
--- NOTE | 2017-06-24 12:15 | ED PDOC ---
HPI: General Adult Time Seen by Provider: 06/24/17 12:00 Chief Complaint (Nursing): Dizziness/Lightheaded Chief Complaint (Provider): Dizziness History Per: Patient History/Exam Limitations: no limitations Onset/Duration Of Symptoms: Hrs (Today) Current Symptoms Are (Timing): Still Present Additional Complaint(s): Alonzo Lafleur is a 47 year old male, with a past medical history of pneumonia, asthma and COPD, who presents to the emergency department complaining of cough, dizziness and body aches onset since today. Patient also reports generalized weakness. He denies any other medical complaints. PMD: None provided. Past Medical History Reviewed: Historical Data, Nursing Documentation, Vital Signs Vital Signs: Last Vital Signs Temp 98 F 06/24/17 10:41 Pulse 83 06/24/17 10:41 Resp 18 06/24/17 10:41 BP 137/93 H 06/24/17 10:41 Pulse Ox 94 L 06/24/17 12:33 - Medical History PMH: Asthma, CAD, COPD, Emphysema, Fractures, Pneumonia, Seizures Denies: Diabetes, Hepatitis, HIV, HTN, Chronic Kidney Disease, Sexually Transmitted Disease - Surgical History Surgical History: CABG - Family History Family History: States: Unknown Family Hx - Home Medications Home Medications: Ambulatory Orders Medication Instructions Recorded Albuterol HFA [Ventolin HFA 90 2 puff IH [id number] PRN #1 inhaler 02/24/17 mcg/actuation (8 g)] Phenytoin, Extended [Dilantin 100 mg PO TID #90 cer 05/24/17 Kapseals] Albuterol HFA [Ventolin HFA 90 1 puff IH ASDIR #1 unit 05/30/17 mcg/actuation (8 g)] Cyclobenzaprine [Cyclobenzaprine 10 mg PO TID PRN #20 tab 05/30/17 HCl] Naproxen [Naprosyn] 500 mg PO BID #20 tab 05/30/17 Nabumetone [Relafen] 500 mg PO BID #20 tab 06/18/17 Phenytoin, Extended [Dilantin 100 mg PO TID #90 tab 06/18/17 Kapseals] Albuterol HFA [Ventolin HFA 90 1 - 2 puff IH Q4 PRN #1 inhaler 06/19/17 mcg/actuation (8 g)] Albuterol HFA [Ventolin HFA 90 2 puff IH [id number] PRN #1 inhaler 06/19/17 mcg/actuation (8 g)] Ibuprofen [Motrin Tab] 600 mg PO Q6 PRN #15 tab 06/19/17 Penicillin VK [Penicillin VK Tab] 500 mg PO Q6H PRN #28 tab 06/19/17 Prednisone 50 mg PO DAILY #4 tab 06/19/17 Ibuprofen [Motrin] 600 mg PO Q8 PRN #21 tab 06/24/17 - Allergies Allergies/Adverse Reactions: Allergies Allergy/AdvReac Type Severity Reaction Status Date / Time No Known Allergies Allergy Verified 06/24/17 10:41 Review of Systems ROS Statement: Except As Marked, All Systems Reviewed And Found Negative Constitutional: Positive for: Weakness (generalized), Other (body aches) Respiratory: Positive for: Cough Neurological: Positive for: Dizziness Physical Exam - Reviewed Nursing Documentation Reviewed: Yes Vital Signs Reviewed: Yes - Physical Exam Appears: Positive for: Non-toxic, No Acute Distress Head Exam: Positive for: ATRAUMATIC, NORMAL INSPECTION, NORMOCEPHALIC Skin: Positive for: Normal Color, Warm, Dry Eye Exam: Positive for: Normal appearance Neck: Positive for: Painless ROM, Supple Cardiovascular/Chest: Positive for: Regular Rate, Rhythm. Negative for: Murmur Respiratory: Positive for: Normal Breath Sounds. Negative for: Respiratory Distress Gastrointestinal/Abdominal: Positive for: Normal Exam, Soft. Negative for: Tenderness Extremity: Positive for: Normal ROM. Negative for: Deformity, Swelling Neurologic/Psych: Positive for: Alert, Oriented - ECG O2 Sat by Pulse Oximetry: 94 (RA) Pulse Ox Interpretation: Abnormal Medical Decision Making Medical Decision Making: Initial Impression: Flu Initial Plan: --reevaluation ~ Scribe Attestation: Documented by Grey Leonardo, acting as a scribe for Conchis Byrd PA-C. Provider Scribe Attestation: All medical record entries made by the Scribe were at my direction and personally dictated by me. I have reviewed the chart and agree that the record accurately reflects my personal performance of the history, physical exam, medical decision making, and the department course for this patient. I have also personally directed, reviewed, and agree with the discharge instructions and disposition. Disposition - Clinical Impression Clinical Impression: Flu-like symptoms - Disposition Referrals: [facility] [Outside] Disposition: Routine/Home Disposition Time: 12:13 (PATIENT LEFT WITHOUT INSTRUCTIONS) Condition: FAIR Prescriptions: Ibuprofen [Motrin] 600 mg PO Q8 PRN #21 tab PRN Reason: Pain, Moderate (4-7) Instructions: Viral Syndrome (ED) Forms: [employer] [facility] (Greek)
== END 2017-06-24 12:13 | disposition home or self-care (01) ==
LOC: H.ER 10:02
DX: B34.9 Viral infection, unspecified (principal); I25.10 Atherosclerotic heart disease of native coronary artery without angina pectoris; J44.9 Chronic obstructive pulmonary disease, unspecified; Z95.1 Presence of aortocoronary bypass graft

== ENCOUNTER 2017-06-26 07:39 | Emergency (ER) | payer OTHER ==
[2017-06-26 07:39] VITALS: BMI 28.1
[2017-06-26 07:55] VITALS: BP 132/100; PULSE 98; RESP 21; TEMP 97.4; O2SAT 97
--- NOTE | 2017-06-26 08:17 | ED PDOC ---
HPI: Dental Pain/Injury Time Seen by Provider: 06/26/17 07:57 Chief Complaint (Provider): Tooth Pain History Per: Patient History/Exam Limitations: no limitations Onset/Duration Of Symptoms: Days (x 1 month) Current Symptoms Are (Timing): Still Present Additional Complaint(s): Alonzo is a 47 y/o male who presents to the ED c/o tooth pain for the past month. Patient states he has been on pain medication for the tooth, but he ran out and now wants the tooth removed as he cannot eat. PMD: None provided Past Medical History Reviewed: Historical Data, Nursing Documentation, Vital Signs Vital Signs: Last Vital Signs Temp 97.4 F L 06/26/17 07:54 Pulse 98 H 06/26/17 07:54 Resp 21 06/26/17 07:54 BP 132/100 H 06/26/17 07:54 Pulse Ox 97 06/26/17 07:54 - Medical History PMH: Asthma, CAD, COPD, Emphysema, Fractures, Pneumonia, Seizures Denies: Diabetes, Hepatitis, HIV, HTN, Chronic Kidney Disease, Sexually Transmitted Disease Other PMH: heart murmur - Surgical History Surgical History: CABG Other surgeries: tracheotomy - Family History Family History: States: Unknown Family Hx - Home Medications Home Medications: Ambulatory Orders Medication Instructions Recorded Albuterol HFA [Ventolin HFA 90 2 puff IH [id number] PRN #1 inhaler 02/24/17 mcg/actuation (8 g)] Phenytoin, Extended [Dilantin 100 mg PO TID #90 cer 05/24/17 Kapseals] Albuterol HFA [Ventolin HFA 90 1 puff IH ASDIR #1 unit 05/30/17 mcg/actuation (8 g)] Cyclobenzaprine [Cyclobenzaprine 10 mg PO TID PRN #20 tab 05/30/17 HCl] Naproxen [Naprosyn] 500 mg PO BID #20 tab 05/30/17 Nabumetone [Relafen] 500 mg PO BID #20 tab 06/18/17 Phenytoin, Extended [Dilantin 100 mg PO TID #90 tab 06/18/17 Kapseals] Albuterol HFA [Ventolin HFA 90 1 - 2 puff IH Q4 PRN #1 inhaler 06/19/17 mcg/actuation (8 g)] Albuterol HFA [Ventolin HFA 90 2 puff IH [id number] PRN #1 inhaler 06/19/17 mcg/actuation (8 g)] Ibuprofen [Motrin Tab] 600 mg PO Q6 PRN #15 tab 06/19/17 Penicillin VK [Penicillin VK Tab] 500 mg PO Q6H PRN #28 tab 06/19/17 Prednisone 50 mg PO DAILY #4 tab 06/19/17 Ibuprofen [Motrin] 600 mg PO Q8 PRN #21 tab 06/24/17 - Allergies Allergies/Adverse Reactions: Allergies Allergy/AdvReac Type Severity Reaction Status Date / Time No Known Allergies Allergy Verified 06/24/17 10:41 Review of Systems ROS Statement: Except As Marked, All Systems Reviewed And Found Negative ENT: Positive for: Mouth Pain (tooth) Cardiovascular: Positive for: Chest Pain Genitourinary Male: Positive for: Incontinence Physical Exam - Reviewed Nursing Documentation Reviewed: Yes Vital Signs Reviewed: Yes - Physical Exam ENT: Positive for: Other (poor dental care and hygiene, loose upper teeth) - ECG O2 Sat by Pulse Oximetry: 97 (RA) Pulse Ox Interpretation: Normal Medical Decision Making Medical Decision Making: Time: 8:05 Initial Impression: Dental Pain Initial Plan: --Refer to dental clinic Scribe Attestation: Documented by Napoleon Correia, acting as a scribe for Becky Frazier MD Provider Scribe Attestation: All medical record entries made by the Scribe were at my direction and personally dictated by me. I have reviewed the chart and agree that the record accurately reflects my personal performance of the history, physical exam, medical decision making, and the department course for this patient. I have also personally directed, reviewed, and agree with the discharge instructions and disposition. Disposition - Clinical Impression Clinical Impression: Chronic dental pain - Patient ED Disposition Is Patient to be Admitted: No Doctor Will See Patient In The: Office Counseled Patient/Family Regarding: Diagnosis, Need For Followup - Disposition Referrals: [facility] [Outside] [facility] [Outside] Dmitry Lara DMD [Staff Provider] - Disposition: Routine/Home Disposition Time: 08:15 Condition: STABLE Instructions: Dental Caries (ED) - POA Present On Arrival: None
== END 2017-06-26 09:24 | disposition home or self-care (01) ==
LOC: H.ER 07:39
DX: K08.89 Other specified disorders of teeth and supporting structures (principal)

== ENCOUNTER 2017-07-25 15:31 | Emergency (ER) | payer MEDICAID, OTHER ==
[2017-07-25 15:31] VITALS: BMI 28.1
[2017-07-25 15:41] VITALS: BP 137/83; PULSE 99; RESP 16; TEMP 98; O2SAT 97
[2017-07-25] MEDS ORDERED: Acetaminophen-Codeine 300/30 mg Tab PO STA (15:49)
--- NOTE | 2017-07-25 16:09 | ED PDOC ---
HPI: Dental Pain/Injury Time Seen by Provider: 07/25/17 15:45 Chief Complaint (Nursing): Dental Pain Chief Complaint (Provider): Dental Pain History Per: Patient History/Exam Limitations: no limitations Onset/Duration Of Symptoms: Days Current Symptoms Are (Timing): Still Present Additional Complaint(s): 48 year old male presents complaining of bilateral dental pain, ongoing for months. No other associated symptoms. This is patient's 5th visit for the same. States he has been taking aspirin without relief. Has not followed up with a dental clinic. Patient also requesting food. PMD: none Past Medical History Reviewed: Historical Data, Nursing Documentation, Vital Signs Vital Signs: Last Vital Signs Temp 98.0 F 07/25/17 15:38 Pulse 99 H 07/25/17 15:38 Resp 16 07/25/17 15:38 BP 137/83 07/25/17 15:38 Pulse Ox 97 07/25/17 15:38 - Medical History PMH: Asthma, CAD, COPD, Emphysema, Fractures, Pneumonia, Seizures Denies: Diabetes, Hepatitis, HIV, HTN, Chronic Kidney Disease, Sexually Transmitted Disease - Surgical History Surgical History: CABG - Family History Family History: States: Unknown Family Hx - Social History Current smoker - smoking cessation education provided: Yes Alcohol: None Drugs: Cannabis - Immunization History Hx Tetanus Toxoid Vaccination: No Hx Influenza Vaccination: Yes Hx Pneumococcal Vaccination: No - Home Medications Home Medications: Ambulatory Orders Medication Instructions Recorded Albuterol HFA [Ventolin HFA 90 2 puff IH [id number] PRN #1 inhaler 02/24/17 mcg/actuation (8 g)] Phenytoin, Extended [Dilantin 100 mg PO TID #90 cer 05/24/17 Kapseals] Albuterol HFA [Ventolin HFA 90 1 puff IH ASDIR #1 unit 05/30/17 mcg/actuation (8 g)] Cyclobenzaprine [Cyclobenzaprine 10 mg PO TID PRN #20 tab 05/30/17 HCl] Naproxen [Naprosyn] 500 mg PO BID #20 tab 05/30/17 Nabumetone [Relafen] 500 mg PO BID #20 tab 06/18/17 Phenytoin, Extended [Dilantin 100 mg PO TID #90 tab 06/18/17 Kapseals] Albuterol HFA [Ventolin HFA 90 1 - 2 puff IH Q4 PRN #1 inhaler 06/19/17 mcg/actuation (8 g)] Albuterol HFA [Ventolin HFA 90 2 puff IH [id number] PRN #1 inhaler 06/19/17 mcg/actuation (8 g)] Ibuprofen [Motrin Tab] 600 mg PO Q6 PRN #15 tab 06/19/17 Penicillin VK [Penicillin VK Tab] 500 mg PO Q6H PRN #28 tab 06/19/17 Prednisone 50 mg PO DAILY #4 tab 06/19/17 Ibuprofen [Motrin] 600 mg PO Q8 PRN #21 tab 06/24/17 - Allergies Allergies/Adverse Reactions: Allergies Allergy/AdvReac Type Severity Reaction Status Date / Time No Known Allergies Allergy Verified 07/25/17 15:38 Review of Systems ROS Statement: Except As Marked, All Systems Reviewed And Found Negative Constitutional: Negative for: Fever, Chills ENT: Positive for: Other (dental pain) Physical Exam - Reviewed Nursing Documentation Reviewed: Yes Vital Signs Reviewed: Yes - Physical Exam Appears: Positive for: Non-toxic, No Acute Distress Skin: Positive for: Normal Color ENT: Positive for: Other (Poor dentition and hygiene. No abscess or gingival swelling. No drainage) Respiratory: Negative for: Respiratory Distress Neurologic/Psych: Positive for: Alert, Oriented - ECG O2 Sat by Pulse Oximetry: 97 (RA) Pulse Ox Interpretation: Normal Medical Decision Making Medical Decision Making: Clinical Impression: Tooth decay Time: 15:49 Plan: * Given 1 tab Tylenol/Codeine Vital signs stable. Patient stable for d/c home. Plan is to follow up with dental clinic. Scribe Attestation: Documented by Shelby Schuler, acting as a scribe for Cassandra Rae PA-C Provider Scribe Attestation: All medical record entries made by the Scribe were at my direction and personally dictated by me. I have reviewed the chart and agree that the record accurately reflects my personal performance of the history, physical exam, medical decision making, and the department course for this patient. I have also personally directed, reviewed, and agree with the discharge instructions and disposition. Disposition - Clinical Impression Clinical Impression: Pain, dental - Patient ED Disposition Is Patient to be Admitted: No Counseled Patient/Family Regarding: Diagnosis, Need For Followup - Disposition Disposition: Routine/Home Disposition Time: 16:02 Condition: STABLE Instructions: Tooth Decay, Adult (DC) Forms: [facility] (Filipino) - POA Present On Arrival: None
== END 2017-07-25 16:10 | disposition home or self-care (01) ==
LOC: H.ER 15:31
DX: K02.9 Dental caries, unspecified (principal); I25.10 Atherosclerotic heart disease of native coronary artery without angina pectoris; J44.9 Chronic obstructive pulmonary disease, unspecified; Z95.1 Presence of aortocoronary bypass graft

== ENCOUNTER 2017-07-25 20:06 | Emergency (ER) | payer OTHER ==
[2017-07-25 20:06] VITALS: BMI 28.1
[2017-07-25 20:28] VITALS: BP 144/68; PULSE 97; RESP 16; TEMP 98; O2SAT 100
--- NOTE | 2017-07-25 20:43 | ED PDOC ---
HPI: Dental Pain/Injury Time Seen by Provider: 07/25/17 20:11 Chief Complaint (Nursing): Dental Pain Chief Complaint (Provider): Dental Pain History Per: Patient History/Exam Limitations: no limitations Onset/Duration Of Symptoms: Days (ongoing for months) Current Symptoms Are (Timing): Still Present Additional Complaint(s): Patient is a 47 y/o male who presents to the ER complaining of chronic dental pain. Denies any fever or chills. No new complaints at this time. Requesting pain medicine. Seen earlier today and given Tylenol w/ codeine. States the medication he received did not work. PMD: none Past Medical History Reviewed: Historical Data, Nursing Documentation, Vital Signs Vital Signs: Last Vital Signs Temp 98.0 F 07/25/17 20:26 Pulse 97 H 07/25/17 20:26 Resp 16 07/25/17 20:26 BP 144/68 07/25/17 20:26 Pulse Ox 100 07/25/17 20:26 - Medical History PMH: Asthma, CAD, COPD, Emphysema, Fractures, Pneumonia, Seizures Denies: Diabetes, Hepatitis, HIV, HTN, Chronic Kidney Disease, Sexually Transmitted Disease - Surgical History Surgical History: CABG - Family History Family History: States: Unknown Family Hx - Immunization History Hx Tetanus Toxoid Vaccination: No Hx Influenza Vaccination: Yes Hx Pneumococcal Vaccination: No - Home Medications Home Medications: Ambulatory Orders Medication Instructions Recorded Albuterol HFA [Ventolin HFA 90 2 puff IH [id number] PRN #1 inhaler 02/24/17 mcg/actuation (8 g)] Phenytoin, Extended [Dilantin 100 mg PO TID #90 cer 05/24/17 Kapseals] Albuterol HFA [Ventolin HFA 90 1 puff IH ASDIR #1 unit 05/30/17 mcg/actuation (8 g)] Cyclobenzaprine [Cyclobenzaprine 10 mg PO TID PRN #20 tab 05/30/17 HCl] Naproxen [Naprosyn] 500 mg PO BID #20 tab 05/30/17 Nabumetone [Relafen] 500 mg PO BID #20 tab 06/18/17 Phenytoin, Extended [Dilantin 100 mg PO TID #90 tab 06/18/17 Kapseals] Albuterol HFA [Ventolin HFA 90 1 - 2 puff IH Q4 PRN #1 inhaler 06/19/17 mcg/actuation (8 g)] Albuterol HFA [Ventolin HFA 90 2 puff IH [id number] PRN #1 inhaler 06/19/17 mcg/actuation (8 g)] Ibuprofen [Motrin Tab] 600 mg PO Q6 PRN #15 tab 06/19/17 Penicillin VK [Penicillin VK Tab] 500 mg PO Q6H PRN #28 tab 06/19/17 Prednisone 50 mg PO DAILY #4 tab 06/19/17 Ibuprofen [Motrin] 600 mg PO Q8 PRN #21 tab 06/24/17 - Allergies Allergies/Adverse Reactions: Allergies Allergy/AdvReac Type Severity Reaction Status Date / Time No Known Allergies Allergy Verified 07/25/17 15:38 Review of Systems ROS Statement: Except As Marked, All Systems Reviewed And Found Negative Constitutional: Negative for: Fever, Chills ENT: Positive for: Other (dental pain) Physical Exam - Reviewed Nursing Documentation Reviewed: Yes Vital Signs Reviewed: Yes - Physical Exam Appears: Positive for: Well, Non-toxic, No Acute Distress Head Exam: Positive for: ATRAUMATIC, NORMAL INSPECTION, NORMOCEPHALIC Skin: Positive for: Normal Color, Warm, Dry Eye Exam: Positive for: Normal appearance ENT: Positive for: Other (Poor dentition, no abscess formation or swelling) Neurologic/Psych: Positive for: Alert, Oriented - ECG O2 Sat by Pulse Oximetry: 100 (RA) Pulse Ox Interpretation: Normal Medical Decision Making Medical Decision Making: Impression: Tooth decay Time: 20:41 Pt offered tylenol in ER and refused. Hospital pain policy discussed w/ patient. Upon provider evaluation patient is medically stable, and requires no further treatment in the ED at this time. Patient will be discharged home. Counseling was provided and all questions were answered regarding diagnosis and need for follow up with a dental clinic. There is agreement to discharge plan. Return if symptoms persist or worsen. Scribe Attestation: Documented by Shelby Schuler, acting as a scribe for Cassandra Rae PA-C Provider Scribe Attestation: All medical record entries made by the Scribe were at my direction and personally dictated by me. I have reviewed the chart and agree that the record accurately reflects my personal performance of the history, physical exam, medical decision making, and the department course for this patient. I have also personally directed, reviewed, and agree with the discharge instructions and disposition. Disposition - Clinical Impression Clinical Impression: Pain, dental - Patient ED Disposition Is Patient to be Admitted: No Counseled Patient/Family Regarding: Diagnosis, Need For Followup - Disposition Disposition: Routine/Home Disposition Time: 20:41 Condition: STABLE Forms: [facility] (Maori)
== END 2017-07-25 21:19 | disposition home or self-care (01) ==
LOC: H.ER 20:06
DX: K02.9 Dental caries, unspecified (principal)

== ENCOUNTER 2017-08-15 13:52 | Emergency (ER) | payer OTHER ==
[2017-08-15 13:52] VITALS: BMI 28.1
[2017-08-15 14:00] VITALS: BP 164/94; PULSE 88; RESP 16; TEMP 98; O2SAT 98
--- NOTE | 2017-08-15 14:22 | ED PDOC ---
HPI: Psych/Substance Abuse Time Seen by Provider: 08/15/17 14:12 Chief Complaint (Nursing): Alcohol Ingestion Chief Complaint (Provider): Possible alcohol abuse History Per: Patient, EMS History/Exam Limitations: no limitations Additional Complaint(s): 47yo male, brought to ER by EMS for evaluation of possible alcohol intoxication after patient was found to be sleeping outside [facility]. Patient states he is here because he was phenytoin as he has not taken the medication for the past month. Other psychiatric symptoms: (-) hallucinations, (-) suicidal ideation, (-) homicidal ideation. Otherwise: (-) trauma, (-) fever, (-)headache, (-) dyspnea, (-) vomiting, (-) substance abuse, (-) patient intent of initiating a suicide attempt, (-) plan. Past Medical History Reviewed: Historical Data, Nursing Documentation, Vital Signs Vital Signs: Last Vital Signs Temp 98.0 F 08/15/17 13:55 Pulse 88 08/15/17 13:55 Resp 16 08/15/17 13:55 BP 164/94 H 08/15/17 13:55 Pulse Ox 98 08/15/17 13:55 - Medical History PMH: Asthma, CAD, COPD, Emphysema, Fractures, Pneumonia, Seizures Denies: Diabetes, Hepatitis, HIV, HTN, Chronic Kidney Disease, Sexually Transmitted Disease - Surgical History Surgical History: CABG - Family History Family History: States: Unknown Family Hx - Immunization History Hx Tetanus Toxoid Vaccination: No Hx Influenza Vaccination: Yes Hx Pneumococcal Vaccination: No - Home Medications Home Medications: Ambulatory Orders Medication Instructions Recorded Albuterol HFA [Ventolin HFA 90 2 puff IH [id number] PRN #1 inhaler 02/24/17 mcg/actuation (8 g)] Phenytoin, Extended [Dilantin 100 mg PO TID #90 cer 05/24/17 Kapseals] Albuterol HFA [Ventolin HFA 90 1 puff IH ASDIR #1 unit 05/30/17 mcg/actuation (8 g)] Cyclobenzaprine [Cyclobenzaprine 10 mg PO TID PRN #20 tab 05/30/17 HCl] Naproxen [Naprosyn] 500 mg PO BID #20 tab 05/30/17 Nabumetone [Relafen] 500 mg PO BID #20 tab 06/18/17 Phenytoin, Extended [Dilantin 100 mg PO TID #90 tab 06/18/17 Kapseals] Albuterol HFA [Ventolin HFA 90 1 - 2 puff IH Q4 PRN #1 inhaler 06/19/17 mcg/actuation (8 g)] Albuterol HFA [Ventolin HFA 90 2 puff IH [id number] PRN #1 inhaler 06/19/17 mcg/actuation (8 g)] Ibuprofen [Motrin Tab] 600 mg PO Q6 PRN #15 tab 06/19/17 Penicillin VK [Penicillin VK Tab] 500 mg PO Q6H PRN #28 tab 06/19/17 Prednisone 50 mg PO DAILY #4 tab 06/19/17 Ibuprofen [Motrin] 600 mg PO Q8 PRN #21 tab 06/24/17 Phenytoin, Extended [Dilantin 100 mg PO TID #30 each 08/15/17 Kapseals] - Allergies Allergies/Adverse Reactions: Allergies Allergy/AdvReac Type Severity Reaction Status Date / Time No Known Allergies Allergy Verified 07/25/17 22:11 Review of Systems ROS Statement: Except As Marked, All Systems Reviewed And Found Negative Constitutional: Negative for: Fever, Chills Respiratory: Negative for: Other (dyspnea) Neurological: Negative for: Headache Psych: Negative for: Suicidal ideation, Other (hallucinations) Physical Exam - Physical Exam Comments: GENERAL APPEARANCE: Patient is awake, alert, oriented x 3, in no acute distress. Patient is disheveled and unkempt. SKIN: Warm, dry; (-) cyanosis. HEAD: (-) scalp swelling, (-) scalp tenderness. EYES: (-) conjunctival pallor, (-) scleral icterus, (-) nystagmus. ENMT: Mucous membranes moist. Airway patent: (-) stridor. NECK: (-) tenderness, (-) stiffness, (-) lymphadenopathy. CHEST AND RESPIRATORY: (-) rales, (-) rhonchi, (-) wheezes; breath sounds equal. ABDOMEN: Soft, (-) distention, (-) tenderness, (-) guarding. NEURO AND PSYCH: Mental status as above. Affect: normal. Memory: Intact. 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 Strength and DTRs symmetric. - ECG O2 Sat by Pulse Oximetry: 98 (RA) Pulse Ox Interpretation: Normal Medical Decision Making Medical Decision Making: Impression: Possible alcohol intoxication Plan: -- Dilantin 100 mg PO ordered. Patient is refusing dose of dilantin being offered, he preferred a prescription. Based on history, exam and diagnostic results plan will be for discharge home. Advised to follow up with the clinic in 1-2 days without fail. Advised to take medication as prescribed. Return to the emergency room at any time for any new or worsening symptoms. Patient states he fully agrees with and understands discharge instructions. States that he agrees with the plan and disposition. Verbalized and repeated discharge instructions and plan. I have given the patient opportunity to ask any additional questions. Scribe Attestation: Documented by Ashlee Arias acting as a scribe for Macarena Holland PA-C. Provider Attestation: All medical record entries made by the Scribe were at my direction and personally dictated by me. I have reviewed the chart and agree that the record accurately reflects my personal performance of the history, physical exam, medical decision making, and the department course for this patient. I have also personally directed, reviewed, and agree with the discharge instructions and disposition. 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
== END 2017-08-15 14:24 | disposition home or self-care (01) ==
LOC: H.ER 13:52
DX: R56.9 Unspecified convulsions (principal); I25.10 Atherosclerotic heart disease of native coronary artery without angina pectoris; J44.9 Chronic obstructive pulmonary disease, unspecified; Z95.1 Presence of aortocoronary bypass graft

== ENCOUNTER 2017-08-29 14:45 | Emergency (ER) | payer OTHER ==
[2017-08-29 14:45] VITALS: BMI 28.1
[2017-08-29 15:01] VITALS: BP 112/68; PULSE 96; RESP 16; TEMP 98.3; O2SAT 95
--- NOTE | 2017-08-29 15:06 | ED PDOC ---
HPI: General Adult Time Seen by Provider: 08/29/17 15:03 Chief Complaint (Nursing): Med Refill Chief Complaint (Provider): med refill History Per: Patient Additional Complaint(s): 47-year-old male well known to emergency department presents requesting prescription for Dilantin. Patient takes 100 mg of Dilantin 3 times a day and took his last tablet this morning. He offers no acute complaints. Patient is also requesting prescription for Motrin for chronic leg pain. PMD: none Past Medical History Reviewed: Historical Data, Nursing Documentation, Vital Signs Vital Signs: Last Vital Signs Temp 98.3 F 08/29/17 14:58 Pulse 96 H 08/29/17 14:58 Resp 16 08/29/17 14:58 BP 112/68 08/29/17 14:58 Pulse Ox 95 08/29/17 14:58 - Medical History PMH: Asthma, CAD, COPD, Emphysema, HIV, HTN, Seizures Denies: Sexually Transmitted Disease - Surgical History Surgical History: CABG Other surgeries: right leg fracture repair - Family History Family History: States: No Known Family Hx - Living Arrangements Living Arrangements: Other (lives in detention) - Social History Current smoker - smoking cessation education provided: Yes Alcohol: None Drugs: Denies - Home Medications Home Medications: Ambulatory Orders Medication Instructions Recorded Albuterol HFA [Ventolin HFA 90 2 puff IH [id number] PRN #1 inhaler 02/24/17 mcg/actuation (8 g)] Phenytoin, Extended [Dilantin 100 mg PO TID #90 cer 05/24/17 Kapseals] Albuterol HFA [Ventolin HFA 90 1 puff IH ASDIR #1 unit 05/30/17 mcg/actuation (8 g)] Cyclobenzaprine [Cyclobenzaprine 10 mg PO TID PRN #20 tab 05/30/17 HCl] Naproxen [Naprosyn] 500 mg PO BID #20 tab 05/30/17 Nabumetone [Relafen] 500 mg PO BID #20 tab 06/18/17 Phenytoin, Extended [Dilantin 100 mg PO TID #90 tab 06/18/17 Kapseals] Albuterol HFA [Ventolin HFA 90 1 - 2 puff IH Q4 PRN #1 inhaler 06/19/17 mcg/actuation (8 g)] Albuterol HFA [Ventolin HFA 90 2 puff IH [id number] PRN #1 inhaler 06/19/17 mcg/actuation (8 g)] Ibuprofen [Motrin Tab] 600 mg PO Q6 PRN #15 tab 06/19/17 Penicillin VK [Penicillin VK Tab] 500 mg PO Q6H PRN #28 tab 06/19/17 Prednisone 50 mg PO DAILY #4 tab 06/19/17 Ibuprofen [Motrin] 600 mg PO Q8 PRN #21 tab 06/24/17 Phenytoin, Extended [Dilantin 100 mg PO TID #30 each 08/15/17 Kapseals] Ibuprofen [Motrin] 600 mg PO Q6 PRN #30 tab 08/29/17 Phenytoin, Extended [Dilantin 100 mg PO TID #90 tab 08/29/17 Kapseals] - Allergies Allergies/Adverse Reactions: Allergies Allergy/AdvReac Type Severity Reaction Status Date / Time No Known Allergies Allergy Verified 08/29/17 14:58 Review of Systems ROS Statement: Except As Marked, All Systems Reviewed And Found Negative Constitutional: Negative for: Fever Cardiovascular: Negative for: Chest Pain Respiratory: Negative for: Cough Gastrointestinal: Negative for: Nausea, Vomiting Musculoskeletal: Positive for: Leg Pain (chronic) Physical Exam - Reviewed Nursing Documentation Reviewed: Yes Vital Signs Reviewed: Yes - Physical Exam Appears: Positive for: Well, Non-toxic, No Acute Distress Skin: Negative for: Rash Eye Exam: Positive for: Normal appearance Neck: Positive for: Normal Cardiovascular/Chest: Positive for: Regular Rate, Rhythm Respiratory: Positive for: Normal Breath Sounds Back: Positive for: Normal Inspection Extremity: Positive for: Normal ROM Neurologic/Psych: Positive for: Alert, Oriented, Gait (steady ) - ECG O2 Sat by Pulse Oximetry: 95 Pulse Ox Interpretation: Normal Medical Decision Making Medical Decision Making: Impression: 47-year-old male requesting prescription refill Plan: PO motrin given in ED Patient given prescriptions for Dilantin and Motrin. He was referred to clinic for follow up. Disposition - Clinical Impression Clinical Impression: Prescription refill - Patient ED Disposition Is Patient to be Admitted: No Counseled Patient/Family Regarding: Diagnosis, Need For Followup, Rx Given - Disposition Referrals: [facility] [Outside] Disposition: Routine/Home Disposition Time: 15:04 Condition: STABLE Additional Instructions: TAKE MEDS DIRECTED. FOLLOW UP WITH CLINIC. Prescriptions: Ibuprofen [Motrin] 600 mg PO Q6 PRN #30 tab PRN Reason: Pain, Moderate (4-7) Phenytoin, Extended [Dilantin Kapseals] 100 mg PO TID #90 tab Instructions: Phenytoin, Where to Get Help Paying for Your Prescriptions
== END 2017-08-29 15:45 | disposition home or self-care (01) ==
LOC: H.ER 14:45
DX: Z76.0 Encounter for issue of repeat prescription (principal)

== ENCOUNTER 2017-09-07 15:23 | Emergency (ER) | payer OTHER ==
[2017-09-07 15:23] VITALS: BMI 28.1
[2017-09-07 15:33] VITALS: BP 124/74; RESP 18; TEMP 98.3; O2SAT 99
--- NOTE | 2017-09-07 15:50 | ED PDOC ---
HPI: General Adult Time Seen by Provider: 09/07/17 15:39 Chief Complaint (Nursing): Med Refill Chief Complaint (Provider): dilantin refill History Per: Patient History/Exam Limitations: no limitations Onset/Duration Of Symptoms: Days Have you had recent travel within the past 21 days to any of the following countries: [place], [place], [place] or [place]?: No Current Symptoms Are (Timing): Still Present Additional Complaint(s): Pt reports taking dilantin 100mg PO three times a day. PT states he does not have a specific time but they have to be 4 hours apart. Pt states that he last took it at 10pm and now canot find the medication. PT denies SI/HI. Pt calm in ER. Past Medical History Reviewed: Historical Data, Nursing Documentation, Vital Signs Vital Signs: Last Vital Signs Temp 98.3 F 09/07/17 15:30 Pulse 118 H 09/07/17 15:30 Resp 18 09/07/17 15:30 BP 124/74 09/07/17 15:30 Pulse Ox 99 09/07/17 15:30 - Medical History PMH: Asthma, CAD, COPD, Emphysema, Fractures, HIV, HTN, Pneumonia, Seizures Denies: Diabetes, Hepatitis, Chronic Kidney Disease, Sexually Transmitted Disease - Surgical History Surgical History: CABG - Family History Family History: States: Unknown Family Hx - Living Arrangements Living Arrangements: With Family - Social History Current smoker - smoking cessation education provided: Yes - Immunization History Hx Tetanus Toxoid Vaccination: No Hx Influenza Vaccination: Yes Hx Pneumococcal Vaccination: No - Home Medications Home Medications: Ambulatory Orders Medication Instructions Recorded Albuterol HFA [Ventolin HFA 90 2 puff IH [id number] PRN #1 inhaler 02/24/17 mcg/actuation (8 g)] Phenytoin, Extended [Dilantin 100 mg PO TID #90 cer 05/24/17 Kapseals] Albuterol HFA [Ventolin HFA 90 1 puff IH ASDIR #1 unit 05/30/17 mcg/actuation (8 g)] Cyclobenzaprine [Cyclobenzaprine 10 mg PO TID PRN #20 tab 05/30/17 HCl] Naproxen [Naprosyn] 500 mg PO BID #20 tab 05/30/17 Nabumetone [Relafen] 500 mg PO BID #20 tab 06/18/17 Phenytoin, Extended [Dilantin 100 mg PO TID #90 tab 06/18/17 Kapseals] Albuterol HFA [Ventolin HFA 90 1 - 2 puff IH Q4 PRN #1 inhaler 06/19/17 mcg/actuation (8 g)] Albuterol HFA [Ventolin HFA 90 2 puff IH [id number] PRN #1 inhaler 06/19/17 mcg/actuation (8 g)] Ibuprofen [Motrin Tab] 600 mg PO Q6 PRN #15 tab 06/19/17 Penicillin VK [Penicillin VK Tab] 500 mg PO Q6H PRN #28 tab 06/19/17 Prednisone 50 mg PO DAILY #4 tab 06/19/17 Ibuprofen [Motrin] 600 mg PO Q8 PRN #21 tab 06/24/17 Phenytoin, Extended [Dilantin 100 mg PO TID #30 each 08/15/17 Kapseals] Ibuprofen [Motrin] 600 mg PO Q6 PRN #30 tab 08/29/17 Phenytoin, Extended [Dilantin 100 mg PO TID #90 tab 08/29/17 Kapseals] Phenytoin, Extended [Dilantin 100 mg PO TID #21 cer 09/07/17 Kapseals] - Allergies Allergies/Adverse Reactions: Allergies Allergy/AdvReac Type Severity Reaction Status Date / Time No Known Allergies Allergy Verified 08/29/17 14:58 Review of Systems ROS Statement: Except As Marked, All Systems Reviewed And Found Negative Constitutional: Negative for: Fever, Chills Cardiovascular: Negative for: Chest Pain Respiratory: Negative for: Cough, Shortness of Breath Gastrointestinal: Negative for: Nausea, Vomiting, Abdominal Pain Psych: Negative for: Anxiety, Depression, Psychosis, Suicidal ideation Physical Exam - Reviewed Nursing Documentation Reviewed: Yes Vital Signs Reviewed: Yes - Physical Exam Appears: Positive for: Well, Non-toxic, No Acute Distress Head Exam: Positive for: ATRAUMATIC, NORMAL INSPECTION, NORMOCEPHALIC Skin: Positive for: Normal Color, Warm, DRY Eye Exam: Positive for: Normal appearance ENT: Positive for: Normal ENT Inspection Neck: Positive for: Normal, Painless ROM Cardiovascular/Chest: Positive for: Regular Rate, Rhythm Respiratory: Positive for: CNT, Normal Breath Sounds Gastrointestinal/Abdominal: Positive for: Normal Exam, Soft Back: Positive for: Normal Inspection Extremity: Positive for: Normal ROM Neurologic/Psych: Positive for: Alert, Oriented - ECG O2 Sat by Pulse Oximetry: 99 Medical Decision Making Medical Decision Making: Dialntin given in ER. Disposition - Clinical Impression Clinical Impression: Medication refill - Patient ED Disposition Is Patient to be Admitted: No - Disposition Disposition: Routine/Home Disposition Time: 15:49 Condition: GOOD Prescriptions: Phenytoin, Extended [Dilantin Kapseals] 100 mg PO TID #21 cer Instructions: Where to Get Help Paying for Your Prescriptions
[2017-09-07 16:03] VITALS: PULSE 96
== END 2017-09-07 16:14 | disposition home or self-care (01) ==
LOC: H.ER 15:23
DX: Z76.0 Encounter for issue of repeat prescription (principal); Z95.1 Presence of aortocoronary bypass graft; I10 Essential (primary) hypertension; I25.10 Atherosclerotic heart disease of native coronary artery without angina pectoris

== ENCOUNTER 2017-09-12 20:22 | Emergency (ER) | payer OTHER ==
[2017-09-12 20:22] VITALS: BMI 28.1
[2017-09-12 20:47] VITALS: BP 114/77; PULSE 99; RESP 16; TEMP 98.2; O2SAT 97
== END 2017-09-12 21:29 | disposition left against medical advice (07) ==
LOC: SUPCPDRO 20:22 → H.ER 20:22
DX: Z02.89 Encounter for other administrative examinations (principal)

== ENCOUNTER 2017-09-13 01:14 | Emergency (ER) | payer OTHER ==
[2017-09-13 01:14] VITALS: BMI 28.1
[2017-09-13 01:43] VITALS: BP 115/69; PULSE 89; RESP 17; TEMP 97.9; O2SAT 100
[2017-09-13] MEDS ORDERED: Amoxicillin-Clav 500-125 mg Tab PO STA (02:08)
--- NOTE | 2017-09-13 02:10 | ED PDOC ---
HPI: CCC, URI, Sore Throat Time Seen by Provider: 09/13/17 01:41 Chief Complaint (Nursing): ENT Problem History Per: Patient History/Exam Limitations: no limitations Additional Complaint(s): Patient presents c/o throat discomfort x 1 week, reports no fever or any other associated symptoms. Patient was observed in triage eating cake and drinking milk. Otherwise : (-) cough, (-) fever, (-) URI, (-) rash, (-) chest pain, (-) SOB, (-) dysphagia, (-) odynophagia, (-) headache. Past Medical History Vital Signs: Last Vital Signs Temp 97.9 F 09/13/17 01:24 Pulse 89 09/13/17 01:24 Resp 17 09/13/17 01:24 BP 115/69 09/13/17 01:24 Pulse Ox 100 09/13/17 02:15 - Medical History PMH: Asthma, CAD, COPD, Emphysema, Fractures, HIV, HTN, Pneumonia, Seizures Denies: Diabetes, Hepatitis, Chronic Kidney Disease, Sexually Transmitted Disease - Surgical History Surgical History: CABG - Family History Family History: States: Unknown Family Hx - Immunization History Hx Tetanus Toxoid Vaccination: No Hx Influenza Vaccination: Yes Hx Pneumococcal Vaccination: No - Home Medications Home Medications: Ambulatory Orders Medication Instructions Recorded Albuterol HFA [Ventolin HFA 90 2 puff IH [id number] PRN #1 inhaler 02/24/17 mcg/actuation (8 g)] Phenytoin, Extended [Dilantin 100 mg PO TID #90 cer 05/24/17 Kapseals] Albuterol HFA [Ventolin HFA 90 1 puff IH ASDIR #1 unit 05/30/17 mcg/actuation (8 g)] Cyclobenzaprine [Cyclobenzaprine 10 mg PO TID PRN #20 tab 05/30/17 HCl] Naproxen [Naprosyn] 500 mg PO BID #20 tab 05/30/17 Nabumetone [Relafen] 500 mg PO BID #20 tab 06/18/17 Phenytoin, Extended [Dilantin 100 mg PO TID #90 tab 06/18/17 Kapseals] Albuterol HFA [Ventolin HFA 90 1 - 2 puff IH Q4 PRN #1 inhaler 06/19/17 mcg/actuation (8 g)] Albuterol HFA [Ventolin HFA 90 2 puff IH [id number] PRN #1 inhaler 06/19/17 mcg/actuation (8 g)] Ibuprofen [Motrin Tab] 600 mg PO Q6 PRN #15 tab 06/19/17 Penicillin VK [Penicillin VK Tab] 500 mg PO Q6H PRN #28 tab 06/19/17 Prednisone 50 mg PO DAILY #4 tab 06/19/17 Ibuprofen [Motrin] 600 mg PO Q8 PRN #21 tab 06/24/17 Phenytoin, Extended [Dilantin 100 mg PO TID #30 each 08/15/17 Kapseals] Ibuprofen [Motrin] 600 mg PO Q6 PRN #30 tab 08/29/17 Phenytoin, Extended [Dilantin 100 mg PO TID #90 tab 08/29/17 Kapseals] Phenytoin, Extended [Dilantin 100 mg PO TID #21 cer 09/07/17 Kapseals] Amoxicillin/Potassium Clav 1 each PO BID #20 tablet 09/13/17 [Augmentin 500-125 Tablet] - Allergies Allergies/Adverse Reactions: Allergies Allergy/AdvReac Type Severity Reaction Status Date / Time No Known Allergies Allergy Verified 08/29/17 14:58 Review of Systems Constitutional: Negative for: Fever, Chills, Malaise ENT: Positive for: Throat Pain. Negative for: Ear Pain, Nose Pain, Nose Discharge, Mouth Pain, Mouth Swelling, Throat Swelling Cardiovascular: Negative for: Chest Pain, Palpitations Respiratory: Negative for: Cough, Shortness of Breath Gastrointestinal: Negative for: Vomiting, Abdominal Pain, Diarrhea Skin: Negative for: Rash, Lesions Physical Exam - Physical Exam Comments: GENERALIZED APPEARANCE: Patient is AAOx3 in no acute distress. Speaking in full sentences, no drooling. SKIN: Warm, dry; (-) cyanosis, (-) rash. EYES: (-) conjunctival pallor, (-) scleral icterus, (-) conjunctival hemorrhage. ENMT: Mucous membranes moist. TMs: (-) erythema. Airway patent: (-) stridor.Pharynx: (-) erythema, (-) exudate. (+) Mild edema and erythema to the uvula. NECK: (-) tenderness, (-) stiffness, (-) meningismus, (+) non-tender lymphadenopathy. CHEST AND RESPIRATORY: (-) accessory muscle use. Lungs: (-) rales, (-) rhonchi, (-) wheezes, (-) rub; breath sounds equal bilaterally. HEART AND CARDIOVASCULAR: (-) irregularity; (-) murmur, (-) gallop, (-) rub. ABDOMEN AND GI: Soft; (-) tenderness, (-) guarding; (-) organomegaly; (-) mass. EXTREMITIES: (-) deformity; (-) cellulitis, (-) lymphangitis; (-) subungual hemorrhage; (-) edema. NEURO AND PSYCH: Mental status as above; (-) focal findings. - ECG O2 Sat by Pulse Oximetry: 100 Medical Decision Making Medical Decision Making: Impression : uvulitis, not tonsillitis, consider laryngitis Plan : -Augmentin PO Diagnosis of uvulitis d/w the patient. Based on history and exam, plan will be for outpatient follow up. Patient instructed to follow-up with the clinic in 1-2 days without fail. Advised to take medication as prescribed. Return to the emergency room at any time for any new or worsening symptoms. Patient states he fully agrees with and understands discharge instructions. States that he agrees with the plan and disposition. Verbalized and repeated discharge instructions and plan. I have given the patient opportunity to ask any additional questions. Disposition - Clinical Impression Clinical Impression: Uvulitis - Patient ED Disposition Is Patient to be Admitted: No (Patient left the ER leaving behind his Rx and d/ c papers.) Counseled Patient/Family Regarding: Diagnosis, Need For Followup, Rx Given - Disposition Referrals: formerly [facility] [Outside] Disposition: Routine/Home Disposition Time: 02:15 Condition: STABLE Prescriptions: Amoxicillin/Potassium Clav [Augmentin 500-125 Tablet] 1 each PO BID #20 tablet Instructions: Sore Throat, Adult (DC) Forms: [employer] (Maori) - PA / [employer]PERVISOR / Resident Statement MD/DO has reviewed & agrees with the documentation as recorded.
[2017-09-13] MEDS ORDERED: Amoxicillin-Clav 250-125 mg Tab PO ONE (02:31)
[2017-09-13] MEDS ORDERED: Amoxicillin-Clav 250-125 mg Tab PO STA (02:45)
[2017-09-13] MEDS ORDERED: Amoxicillin-Clav 875-125 mg Tab PO ONE (16:01)
== END 2017-09-13 03:15 | disposition home or self-care (01) ==
LOC: H.ER 01:14
DX: K12.2 Cellulitis and abscess of mouth (principal)

== ENCOUNTER 2017-09-13 15:38 | Emergency (ER) | payer OTHER ==
[2017-09-13 15:38] VITALS: BMI 28.1
[2017-09-13 15:50] VITALS: BP 109/64; PULSE 92; RESP 18; TEMP 98.4; O2SAT 95
--- NOTE | 2017-09-13 15:53 | ED PDOC ---
HPI: CCC, URI, Sore Throat Time Seen by Provider: 09/13/17 15:50 Chief Complaint (Nursing): ENT Problem Chief Complaint (Provider): sore throat History Per: Patient Additional Complaint(s): Patient was seen in ED at 3 am today and was diagnosed with uvulitis. Patient returns this afternoon stating he does not know what he did with rx for augmentin. Patient denies any fever or chills. Patient is tolerating liquids and solilds, he denies drooling. Patient is well known to ED for frequent visits. PMD: none Past Medical History Reviewed: Historical Data, Nursing Documentation, Vital Signs Vital Signs: Last Vital Signs Temp 98.4 F 09/13/17 15:47 Pulse 92 H 09/13/17 15:47 Resp 18 09/13/17 15:47 BP 109/64 09/13/17 15:47 Pulse Ox 95 09/13/17 16:02 - Medical History PMH: Asthma, CAD, COPD, Diabetes, Emphysema, Fractures, HTN, Seizures - Surgical History Surgical History: CABG - Family History Family History: States: No Known Family Hx - Social History Current smoker - smoking cessation education provided: Yes Alcohol: None Drugs: Denies - Home Medications Home Medications: Ambulatory Orders Medication Instructions Recorded Albuterol HFA [Ventolin HFA 90 2 puff IH [id number] PRN #1 inhaler 02/24/17 mcg/actuation (8 g)] Phenytoin, Extended [Dilantin 100 mg PO TID #90 cer 05/24/17 Kapseals] Albuterol HFA [Ventolin HFA 90 1 puff IH ASDIR #1 unit 05/30/17 mcg/actuation (8 g)] Cyclobenzaprine [Cyclobenzaprine 10 mg PO TID PRN #20 tab 05/30/17 HCl] Naproxen [Naprosyn] 500 mg PO BID #20 tab 05/30/17 Nabumetone [Relafen] 500 mg PO BID #20 tab 06/18/17 Phenytoin, Extended [Dilantin 100 mg PO TID #90 tab 06/18/17 Kapseals] Albuterol HFA [Ventolin HFA 90 1 - 2 puff IH Q4 PRN #1 inhaler 06/19/17 mcg/actuation (8 g)] Albuterol HFA [Ventolin HFA 90 2 puff IH [id number] PRN #1 inhaler 06/19/17 mcg/actuation (8 g)] Ibuprofen [Motrin Tab] 600 mg PO Q6 PRN #15 tab 06/19/17 Penicillin VK [Penicillin VK Tab] 500 mg PO Q6H PRN #28 tab 06/19/17 Prednisone 50 mg PO DAILY #4 tab 06/19/17 Ibuprofen [Motrin] 600 mg PO Q8 PRN #21 tab 06/24/17 Phenytoin, Extended [Dilantin 100 mg PO TID #30 each 08/15/17 Kapseals] Ibuprofen [Motrin] 600 mg PO Q6 PRN #30 tab 08/29/17 Phenytoin, Extended [Dilantin 100 mg PO TID #90 tab 08/29/17 Kapseals] Phenytoin, Extended [Dilantin 100 mg PO TID #21 cer 09/07/17 Kapseals] Amoxicillin/Clavulanate [Augmentin 1 tab PO BID #14 tab 09/13/17 875 MG-125 MG] Amoxicillin/Potassium Clav 1 each PO BID #20 tablet 09/13/17 [Augmentin 500-125 Tablet] Ibuprofen [Motrin Tab] 800 mg PO Q8 PRN #20 tab 09/13/17 - Allergies Allergies/Adverse Reactions: Allergies Allergy/AdvReac Type Severity Reaction Status Date / Time No Known Allergies Allergy Verified 08/29/17 14:58 Review of Systems ROS Statement: Except As Marked, All Systems Reviewed And Found Negative Constitutional: Negative for: Fever ENT: Positive for: Throat Pain, Throat Swelling Respiratory: Negative for: Cough Gastrointestinal: Negative for: Nausea, Vomiting Neurological: Negative for: Headache, Dizziness Physical Exam - Reviewed Nursing Documentation Reviewed: Yes Vital Signs Reviewed: Yes - Physical Exam Appears: Positive for: Well, Non-toxic, No Acute Distress Skin: Negative for: Rash Eye Exam: Positive for: Normal appearance ENT: Positive for: Pharyngeal Erythema (edema and erythema to uvula, no 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 Negative for: Wheezing, Respiratory Distress Extremity: Positive for: Normal ROM Neurologic/Psych: Positive for: Alert, Oriented - ECG O2 Sat by Pulse Oximetry: 95 Pulse Ox Interpretation: Normal Medical Decision Making Medical Decision Making: Impression: Uvulitis Plan: Augmentin 875 mg PO x 1 dose Motrin 600 mg PO x 1 dose Rx augmentin and motrin given. Patient was referred to clinic for follow up. Disposition - Clinical Impression Clinical Impression: Uvulitis - Patient ED Disposition Is Patient to be Admitted: No Counseled Patient/Family Regarding: Diagnosis, Need For Followup, Rx Given - Disposition Referrals: [facility] [Outside] Disposition: Routine/Home Disposition Time: 15:54 Condition: STABLE Additional Instructions: TAKE RX MEDS DIRECTED. FOLLOW UP WITH CLINIC. Prescriptions: Amoxicillin/Clavulanate [Augmentin 875 MG-125 MG] 1 tab PO BID #14 tab Ibuprofen [Motrin Tab] 800 mg PO Q8 PRN #20 tab PRN Reason: Pain, Moderate (4-7) Instructions: Sore Throat, Adult (DC) Forms: [employer] (Thai)
[2017-09-13] MEDS ORDERED: Amoxicillin-Clav 875-125 mg Tab PO STA (15:55)
== END 2017-09-13 16:19 | disposition home or self-care (01) ==
LOC: H.ER 15:38
DX: K12.2 Cellulitis and abscess of mouth (principal); E11.9 Type 2 diabetes mellitus without complications; Z95.1 Presence of aortocoronary bypass graft

== ENCOUNTER 2017-09-18 15:49 | Emergency (ER) | payer OTHER ==
[2017-09-18 15:50] VITALS: BMI 28.1
[2017-09-18 16:30] VITALS: BP 112/65; PULSE 91; RESP 16; TEMP 98.3; O2SAT 96
--- NOTE | 2017-09-18 18:48 | ED PDOC ---
HPI: General Adult Time Seen by Provider: 09/18/17 17:55 Chief Complaint (Nursing): Med Refill Chief Complaint (Provider): Med refill History Per: Patient History/Exam Limitations: no limitations Onset/Duration Of Symptoms: Days (x5) Current Symptoms Are (Timing): Still Present Recently: Seen In ED Additional Complaint(s): Alonzo Lafleur is a 47 year old male, with a past medical history of diabetes, asthma, HTN and HIV, who presents to the emergency department for medication refill. Patient reports on 09/13/17 he was prescribed augmentin, he lost the prescription and returned. Patient states he got the prescription again but lost it again. Patient took x2 days worth of Augmentin until it was "stolen" he still reports a sore throat but with improvement. He denies any fever, chills, or shortness of breath. No further medical complaints. PMD: None provided. Past Medical History Reviewed: Historical Data, Nursing Documentation, Vital Signs Vital Signs: Last Vital Signs Temp 98.3 F 09/18/17 16:27 Pulse 91 H 09/18/17 16:27 Resp 16 09/18/17 16:27 BP 112/65 09/18/17 16:27 Pulse Ox 96 09/18/17 21:19 - Medical History PMH: Asthma, CAD, COPD, Diabetes, Emphysema, Fractures, HIV, HTN, Pneumonia, Seizures Denies: Hepatitis, Chronic Kidney Disease, Sexually Transmitted Disease - Surgical History Surgical History: CABG - Family History Family History: States: Unknown Family Hx - Immunization History Hx Tetanus Toxoid Vaccination: No Hx Influenza Vaccination: Yes Hx Pneumococcal Vaccination: No - Home Medications Home Medications: Ambulatory Orders Medication Instructions Recorded Albuterol HFA [Ventolin HFA 90 2 puff IH [id number] PRN #1 inhaler 02/24/17 mcg/actuation (8 g)] Phenytoin, Extended [Dilantin 100 mg PO TID #90 cer 05/24/17 Kapseals] Albuterol HFA [Ventolin HFA 90 1 puff IH ASDIR #1 unit 05/30/17 mcg/actuation (8 g)] Cyclobenzaprine [Cyclobenzaprine 10 mg PO TID PRN #20 tab 05/30/17 HCl] Naproxen [Naprosyn] 500 mg PO BID #20 tab 05/30/17 Nabumetone [Relafen] 500 mg PO BID #20 tab 06/18/17 Phenytoin, Extended [Dilantin 100 mg PO TID #90 tab 06/18/17 Kapseals] Albuterol HFA [Ventolin HFA 90 1 - 2 puff IH Q4 PRN #1 inhaler 06/19/17 mcg/actuation (8 g)] Albuterol HFA [Ventolin HFA 90 2 puff IH [id number] PRN #1 inhaler 06/19/17 mcg/actuation (8 g)] Ibuprofen [Motrin Tab] 600 mg PO Q6 PRN #15 tab 06/19/17 Penicillin VK [Penicillin VK Tab] 500 mg PO Q6H PRN #28 tab 06/19/17 Prednisone 50 mg PO DAILY #4 tab 06/19/17 Ibuprofen [Motrin] 600 mg PO Q8 PRN #21 tab 06/24/17 Phenytoin, Extended [Dilantin 100 mg PO TID #30 each 08/15/17 Kapseals] Ibuprofen [Motrin] 600 mg PO Q6 PRN #30 tab 08/29/17 Phenytoin, Extended [Dilantin 100 mg PO TID #90 tab 08/29/17 Kapseals] Phenytoin, Extended [Dilantin 100 mg PO TID #21 cer 09/07/17 Kapseals] Amoxicillin/Clavulanate [Augmentin 1 tab PO BID #14 tab 09/13/17 875 MG-125 MG] Amoxicillin/Potassium Clav 1 each PO BID #20 tablet 09/13/17 [Augmentin 500-125 Tablet] Ibuprofen [Motrin Tab] 800 mg PO Q8 PRN #20 tab 09/13/17 Amoxicillin/Clavulanate [Augmentin 1 tab PO BID #10 tab 09/18/17 875 MG-125 MG] Ibuprofen [Motrin Tab] 800 mg PO Q8 PRN #10 tab 09/18/17 - Allergies Allergies/Adverse Reactions: Allergies Allergy/AdvReac Type Severity Reaction Status Date / Time No Known Allergies Allergy Verified 09/18/17 16:27 Review of Systems ROS Statement: Except As Marked, All Systems Reviewed And Found Negative Constitutional: Negative for: Fever, Chills ENT: Positive for: Throat Pain Respiratory: Negative for: Shortness of Breath Physical Exam - Reviewed Nursing Documentation Reviewed: Yes Vital Signs Reviewed: Yes - Physical Exam Appears: Positive for: Well, Non-toxic, No Acute Distress Head Exam: Positive for: ATRAUMATIC, NORMAL INSPECTION, NORMOCEPHALIC Skin: Positive for: Normal Color, Warm, Dry Eye Exam: Positive for: Normal appearance, EOMI, PERRL ENT: Positive for: Other (Minimal erythema to uvula, no edema or swelling. Patient is able to swallow saliva. No trismus) Neck: Positive for: Painless ROM Cardiovascular/Chest: Positive for: Regular Rate, Rhythm. Negative for: Murmur Respiratory: Positive for: Normal Breath Sounds. Negative for: Respiratory Distress Gastrointestinal/Abdominal: Positive for: Normal Exam, Soft. Negative for: Tenderness, Other (no organomegaly to abdomen) Extremity: Positive for: Normal ROM (upper and lower extremities). Negative for : Deformity, Swelling Neurologic/Psych: Positive for: Alert, Oriented. Negative for: Motor/Sensory Deficits - ECG O2 Sat by Pulse Oximetry: 96 (RA) Pulse Ox Interpretation: Normal Medical Decision Making Medical Decision Making: Initial Impression: medication refill Initial Plan: -Patient is requesting food. ~ Scribe Attestation: Documented by Grey Leonardo, acting as a scribe for Nate Greco PA-C. Provider Scribe Attestation: All medical record entries made by the Scribe were at my direction and personally dictated by me. I have reviewed the chart and agree that the record accurately reflects my personal performance of the history, physical exam, medical decision making, and the department course for this patient. I have also personally directed, reviewed, and agree with the discharge instructions and disposition. Disposition - Clinical Impression Clinical Impression: Uvulitis - Patient ED Disposition Is Patient to be Admitted: No - Disposition Referrals: [facility] [Outside] Disposition: Routine/Home Disposition Time: 18:45 Condition: STABLE Prescriptions: Amoxicillin/Clavulanate [Augmentin 875 MG-125 MG] 1 tab PO BID #10 tab Ibuprofen [Motrin Tab] 800 mg PO Q8 PRN #10 tab PRN Reason: pain Instructions: Sore Throat, Adult (DC) Forms: [employer] ([place] Islander) Print Language: NEPALESE
== END 2017-09-18 18:20 | disposition home or self-care (01) ==
LOC: H.ER 15:49
DX: Z76.0 Encounter for issue of repeat prescription (principal); K12.2 Cellulitis and abscess of mouth; E11.9 Type 2 diabetes mellitus without complications; I10 Essential (primary) hypertension; I25.10 Atherosclerotic heart disease of native coronary artery without angina pectoris; Z95.1 Presence of aortocoronary bypass graft; J44.9 Chronic obstructive pulmonary disease, unspecified; B20 Human immunodeficiency virus [HIV] disease

== ENCOUNTER 2017-09-21 12:28 | Emergency (ER) | payer OTHER ==
[2017-09-21 12:29] VITALS: BMI 28.1
[2017-09-21 12:45] VITALS: BP 124/68; PULSE 125; RESP 26; TEMP 98; O2SAT 99
--- NOTE | 2017-09-21 14:13 | ED PDOC ---
HPI: Seizure Time Seen by Provider: 09/21/17 12:55 Chief Complaint (Nursing): Seizure Chief Complaint (Provider): Seizure History Per: Patient History/Exam Limitations: no limitations Recent Seizure Activity Began: Just Before Arrival Additional Complaint(s): 47 year old male with medical history of HIV, HTN, COPD and DM , presents to the emergency department for an evaluation of a seizure prior to arrival. Upon exam, patient is not talking but responding to sternum rub. He does not offer any further medical complaints. PMD: none provided Past Medical History Reviewed: Historical Data, Nursing Documentation, Vital Signs Vital Signs: Last Vital Signs Temp 98.0 F 09/21/17 12:42 Pulse 125 H 09/21/17 12:42 Resp 26 H 09/21/17 12:42 BP 124/68 09/21/17 12:42 Pulse Ox 99 09/21/17 14:19 - Medical History PMH: Asthma, CAD, COPD, Diabetes, Emphysema, Fractures, HIV, HTN, Pneumonia, Seizures Denies: Hepatitis, Chronic Kidney Disease, Sexually Transmitted Disease - Surgical History Surgical History: CABG - Family History Family History: States: Unknown Family Hx - Social History Current smoker - smoking cessation education provided: Yes Alcohol: None Drugs: Cannabis - Immunization History Hx Tetanus Toxoid Vaccination: No Hx Influenza Vaccination: Yes Hx Pneumococcal Vaccination: No - Home Medications Home Medications: Ambulatory Orders Medication Instructions Recorded Albuterol HFA [Ventolin HFA 90 2 puff IH [id number] PRN #1 inhaler 02/24/17 mcg/actuation (8 g)] Phenytoin, Extended [Dilantin 100 mg PO TID #90 cer 05/24/17 Kapseals] Albuterol HFA [Ventolin HFA 90 1 puff IH ASDIR #1 unit 05/30/17 mcg/actuation (8 g)] Cyclobenzaprine [Cyclobenzaprine 10 mg PO TID PRN #20 tab 05/30/17 HCl] Naproxen [Naprosyn] 500 mg PO BID #20 tab 05/30/17 Nabumetone [Relafen] 500 mg PO BID #20 tab 06/18/17 Phenytoin, Extended [Dilantin 100 mg PO TID #90 tab 06/18/17 Kapseals] Albuterol HFA [Ventolin HFA 90 1 - 2 puff IH Q4 PRN #1 inhaler 06/19/17 mcg/actuation (8 g)] Albuterol HFA [Ventolin HFA 90 2 puff IH [id number] PRN #1 inhaler 06/19/17 mcg/actuation (8 g)] Ibuprofen [Motrin Tab] 600 mg PO Q6 PRN #15 tab 06/19/17 Penicillin VK [Penicillin VK Tab] 500 mg PO Q6H PRN #28 tab 06/19/17 Prednisone 50 mg PO DAILY #4 tab 06/19/17 Ibuprofen [Motrin] 600 mg PO Q8 PRN #21 tab 06/24/17 Phenytoin, Extended [Dilantin 100 mg PO TID #30 each 08/15/17 Kapseals] Ibuprofen [Motrin] 600 mg PO Q6 PRN #30 tab 08/29/17 Phenytoin, Extended [Dilantin 100 mg PO TID #90 tab 08/29/17 Kapseals] Phenytoin, Extended [Dilantin 100 mg PO TID #21 cer 09/07/17 Kapseals] Amoxicillin/Clavulanate [Augmentin 1 tab PO BID #14 tab 09/13/17 875 MG-125 MG] Amoxicillin/Potassium Clav 1 each PO BID #20 tablet 09/13/17 [Augmentin 500-125 Tablet] Ibuprofen [Motrin Tab] 800 mg PO Q8 PRN #20 tab 09/13/17 Amoxicillin/Clavulanate [Augmentin 1 tab PO BID #10 tab 09/18/17 875 MG-125 MG] Ibuprofen [Motrin Tab] 800 mg PO Q8 PRN #10 tab 09/18/17 - Allergies Allergies/Adverse Reactions: Allergies Allergy/AdvReac Type Severity Reaction Status Date / Time No Known Allergies Allergy Verified 09/18/17 16:27 Review of Systems ROS Statement: Except As Marked, All Systems Reviewed And Found Negative Neurological: Positive for: Seizures Physical Exam - Reviewed Nursing Documentation Reviewed: Yes Vital Signs Reviewed: Yes - Physical Exam Appears: Positive for: No Acute Distress Eye Exam: Positive for: Normal appearance, EOMI Cardiovascular/Chest: Positive for: Chest Non Tender, Other (responsive to sternal rub) Respiratory: Positive for: Normal Breath Sounds. Negative for: Respiratory Distress Neurologic/Psych: Positive for: Mood/Affect (sleeping), Aphasia - Laboratory Results Result Diagrams: 09/21/17 14:20 - ECG O2 Sat by Pulse Oximetry: 99 (RA) Pulse Ox Interpretation: Normal Medical Decision Making Medical Decision Making: Initial Impression: Possible alcohol intoxication Initial Plan: * Alcohol serum * CMP * Drug screen, urine * CBC Time: 1500 --Patient is endorsed to Dr. Savannah Traylor. Pending lab results. Scribe Attestation: Documented by Yenny Sellers, acting as a scribe for Becky Frazier MD. Provider Scribe Attestation: All medical record entries made by the Scribe were at my direction and personally dictated by me. I have reviewed the chart and agree that the record accurately reflects my personal performance of the history, physical exam, medical decision making, and the department course for this patient. I have also personally directed, reviewed, and agree with the discharge instructions and disposition. Disposition - Clinical Impression Clinical Impression: Intoxication - Patient ED Disposition Is Patient to be Admitted: Transfer of Care - Disposition Disposition: Transfer of Care Disposition Time: 14:34 Condition: FAIR Forms: [employer] (Albanian) Patient Signed Over To: Savannah Traylor Present On Arrival: None
[2017-09-21 14:28] LABS: BASO # 0.1 K/uL (0.0-0.2); BASO % 0.9 % (0.0-2.0); EOS % 0.4 % (0.0-4.0); HEMOGLOBIN 13.6 g/dL (12.0-18.0); LYMPH # 1.5 K/uL (1.0-4.3); LYMPH % 16.1 % (20.0-40.0); MEAN CELL VOLUME 93.7 fl (80.0-94.0); MEAN CORPUSCULAR HEMOGLOBIN 32.7 pg (27.0-31.0); MEAN CORPUSCULAR HGB CONC 34.9 g/dL (33.0-37.0); MEAN PLATELET VOLUME 7.7 fl (7.2-11.7); MONO # 0.6 K/uL (0.0-0.8); MONO % 6.2 % (0.0-10.0); NEUT # 6.9 K/uL (1.8-7.0); NEUT % 76.4 % (50.0-75.0); NRBC % 0.2 % (0.0-0.0); RBC 4.15 Mil/uL (4.40-5.90); RED CELL DISTRIBUTION WIDTH 14.3 % (11.5-14.5)
[2017-09-21 14:40] LABS: ALB/GLOB RATIO 1.1 (1.0-2.1); ALBUMIN 3.4 g/dL (3.5-5.0); ALT/SGPT 34 U/L (21-72); AST/SGOT 24 U/L (17-59); BLOOD UREA NITROGEN 17 mg/dl (9-20); CALCIUM 8.5 mg/dL (8.4-10.2); GFR AFRICAN-AMERICAN > 60; GFR NON-AFRICAN AMERICAN > 60
--- NOTE | 2017-09-21 16:02 | ED PDOC ---
- Laboratory Results Result Diagrams: 09/21/17 14:20 09/21/17 14:20 - ECG O2 Sat by Pulse Oximetry: 99 (RA) Medical Decision Making Medical Decision Making: Time: 15:[address] Frazier. Patient had self presented for seizure that he reports he had prior to arrival Patient otherwise had no complaints and then became excessively lethargic while at ER. Time: 15:15 On evaluation, patient woke up easily painful stimuli and then started cursing and physically threatening at this provider. Patient not in any distress. Labs received and no clinically significant abnormalities were found. Patient is stable for discharge. Scribe Attestation: Documented by Iglesia Nathan, acting as a scribe for Savannah Traylor MD. Scribe Attestation: All medical record entries made by the Scribe were at my direction and personally dictated by me. I have reviewed the chart and agree that the record accurately reflects my personal performance of the history, physical exam, medical decision making, and the department course for this patient. I have also personally directed, reviewed, and agree with the discharge instructions and disposition. Disposition Counseled Patient/Family Regarding: Studies Performed, Diagnosis, Need For Followup - Clinical Impression Clinical Impression: Recurrent seizures - POA Present On Arrival: None - Disposition Referrals: [facility] [Outside] Disposition: Routine/Home Disposition Time: 15:15 Condition: IMPROVED Additional Instructions: CONTINUE ALL YOUR REGULAR MEDICATIONS PRESCRIBED Instructions: Epilepsy in Adults Forms: [employer] ([place]ish)
== END 2017-09-21 16:05 | disposition home or self-care (01) ==
LOC: H.ER 12:28
DX: G40.909 Epilepsy, unspecified, not intractable, without status epilepticus (principal); F10.129 Alcohol abuse with intoxication, unspecified; E11.9 Type 2 diabetes mellitus without complications; F17.200 Nicotine dependence, unspecified, uncomplicated; I10 Essential (primary) hypertension; I25.10 Atherosclerotic heart disease of native coronary artery without angina pectoris; J44.9 Chronic obstructive pulmonary disease, unspecified; Z95.1 Presence of aortocoronary bypass graft; B20 Human immunodeficiency virus [HIV] disease

== ENCOUNTER 2017-09-29 20:01 | Emergency (ER) | payer OTHER ==
[2017-09-29 20:01] VITALS: BMI 28.1
[2017-09-29 20:13] VITALS: BP 122/78; RESP 18; TEMP 97.9; O2SAT 95
[2017-09-29] MEDS ORDERED: guaiFENesin 100 mg/5 ml Syrup UD PO ONE (20:39)
--- NOTE | 2017-09-29 20:40 | ED PDOC ---
HPI: General Adult Time Seen by Provider: 09/29/17 20:28 Chief Complaint (Nursing): Med Refill Chief Complaint (Provider): Med Refill History Per: Patient History/Exam Limitations: no limitations Onset/Duration Of Symptoms: Days Current Symptoms Are (Timing): Still Present Additional Complaint(s): Alonzo Lafleur is a 47 year old male who is presenting to the ER for a medication refill of Augmentin and Ibuprofen. Patient states that these medications helped him last time he thought he was losing his voice, and reports that though his voice is fine now, he felt as though he was losing his voice earlier today. Reports a cough. Patient denies any other upper respiratory infection symptoms, fevers, chest pain, shortness of breath, or cough. PMD: none provided Past Medical History Reviewed: Historical Data, Nursing Documentation, Vital Signs Vital Signs: Last Vital Signs Temp 97.9 F 09/29/17 20:05 Pulse 90 09/29/17 20:52 Resp 18 09/29/17 20:05 BP 122/78 09/29/17 20:05 Pulse Ox 95 09/29/17 20:49 - Medical History PMH: Asthma, CAD, COPD, Diabetes, Emphysema, Fractures, HIV, HTN, Pneumonia, Seizures Denies: Hepatitis, Chronic Kidney Disease, Sexually Transmitted Disease - Surgical History Surgical History: CABG - Family History Family History: States: Unknown Family Hx - Social History Current smoker - smoking cessation education provided: Yes (chronic) - Immunization History Hx Tetanus Toxoid Vaccination: No Hx Influenza Vaccination: Yes Hx Pneumococcal Vaccination: No - Home Medications Home Medications: Ambulatory Orders Medication Instructions Recorded Albuterol HFA [Ventolin HFA 90 2 puff IH [id number] PRN #1 inhaler 02/24/17 mcg/actuation (8 g)] Phenytoin, Extended [Dilantin 100 mg PO TID #90 cer 05/24/17 Kapseals] Albuterol HFA [Ventolin HFA 90 1 puff IH ASDIR #1 unit 05/30/17 mcg/actuation (8 g)] Cyclobenzaprine [Cyclobenzaprine 10 mg PO TID PRN #20 tab 05/30/17 HCl] Naproxen [Naprosyn] 500 mg PO BID #20 tab 05/30/17 Nabumetone [Relafen] 500 mg PO BID #20 tab 06/18/17 Phenytoin, Extended [Dilantin 100 mg PO TID #90 tab 06/18/17 Kapseals] Albuterol HFA [Ventolin HFA 90 1 - 2 puff IH Q4 PRN #1 inhaler 06/19/17 mcg/actuation (8 g)] Albuterol HFA [Ventolin HFA 90 2 puff IH [id number] PRN #1 inhaler 06/19/17 mcg/actuation (8 g)] Ibuprofen [Motrin Tab] 600 mg PO Q6 PRN #15 tab 06/19/17 Penicillin VK [Penicillin VK Tab] 500 mg PO Q6H PRN #28 tab 06/19/17 Prednisone 50 mg PO DAILY #4 tab 06/19/17 Ibuprofen [Motrin] 600 mg PO Q8 PRN #21 tab 06/24/17 Phenytoin, Extended [Dilantin 100 mg PO TID #30 each 08/15/17 Kapseals] Ibuprofen [Motrin] 600 mg PO Q6 PRN #30 tab 08/29/17 Phenytoin, Extended [Dilantin 100 mg PO TID #90 tab 08/29/17 Kapseals] Phenytoin, Extended [Dilantin 100 mg PO TID #21 cer 09/07/17 Kapseals] Amoxicillin/Clavulanate [Augmentin 1 tab PO BID #14 tab 09/13/17 875 MG-125 MG] Amoxicillin/Potassium Clav 1 each PO BID #20 tablet 09/13/17 [Augmentin 500-125 Tablet] Ibuprofen [Motrin Tab] 800 mg PO Q8 PRN #20 tab 09/13/17 Amoxicillin/Clavulanate [Augmentin 1 tab PO BID #10 tab 09/18/17 875 MG-125 MG] Ibuprofen [Motrin Tab] 800 mg PO Q8 PRN #10 tab 09/18/17 Guaifenesin [Adult Tussin Chest 200 mg PO Q6H PRN #200 ml 09/29/17 Congestion] Ibuprofen [Motrin Tab] 600 mg PO QID PRN #20 tab 09/29/17 - Allergies Allergies/Adverse Reactions: Allergies Allergy/AdvReac Type Severity Reaction Status Date / Time No Known Allergies Allergy Verified 09/29/17 20:05 Review of Systems ROS Statement: Except As Marked, All Systems Reviewed And Found Negative Constitutional: Negative for: Fever, Other (URI symptoms) Cardiovascular: Negative for: Chest Pain Respiratory: Negative for: Cough, Shortness of Breath Physical Exam - Reviewed Nursing Documentation Reviewed: Yes Vital Signs Reviewed: Yes - Physical Exam Comments: GENERAL APPEARANCE: Patient is awake, alert, oriented x 3, in no acute distress. Patient speaking in full sentences, no drooling, speaking within normal voice. SKIN: Warm, dry; (-) cyanosis. EYES: (-) conjunctival pallor. ENMT: Mucous membranes moist. Airway patent: (-) stridor. Pharynx: (-) swelling, (-) erythema. NECK: (-) tenderness, (-) stiffness, (-) lymphadenopathy. CHEST AND RESPIRATORY: (-) wheezing; (-) rales, (-) rhonchi, (-) rub; breath sounds equal bilaterally. HEART AND CARDIOVASCULAR: (-) irregularity; (-) murmur, (-) gallop. ABDOMEN AND GI: Soft; (-) tenderness. EXTREMITIES: (-) deformity, (-) edema. NEURO AND PSYCH: Mental status as above; (-) focal findings. - ECG O2 Sat by Pulse Oximetry: 95 (RA) Pulse Ox Interpretation: Normal Medical Decision Making Medical Decision Making: Provider reviewed data from previous visits and noted that patient was here on and diagnosed with uvulitis and prescribed Augmentin. Patient was back in the ER on 09/18 because he lost his prescription and was given another one. Time: 20:39 Impression : consider laryngitis Plan: --Motrin Tab 600 mg PO --Robitussin 200 mg PO Provider advised patient that may have laryngitis and should follow-up with an ENT, referral provided. Upon provider evaluation, patient is medically stable and requires no further treatment in the Ed and is stable to be discharged home. Advised to follow up with ENT referral in 1-2 days without fail. Advised to take medication as prescribed. Return to the emergency room at any time for any new or worsening symptoms. Patient states he fully agrees with and understands discharge instructions. States that he agrees with the plan and disposition. Verbalized and repeated discharge instructions and plan. I have given the patient opportunity to ask any additional questions. Scribe Attestation: Documented by Michelle Kiran, acting as a scribe for Macarena Holland PA-C. Provider Scribe Attestation: All medical record entries made by the Scribe were at my direction and personally dictated by me. I have reviewed the chart and agree that the record accurately reflects my personal performance of the history, physical exam, medical decision making, and the department course for this patient. I have also personally directed, reviewed, and agree with the discharge instructions and disposition. Disposition - Clinical Impression Clinical Impression: Laryngitis - Patient ED Disposition Is Patient to be Admitted: No Counseled Patient/Family Regarding: Diagnosis, Need For Followup, Rx Given - Disposition Referrals: Anup Walker MD [Staff Provider] - Disposition: Routine/Home Disposition Time: 18:30 Condition: STABLE Additional Instructions: You were treated for laryngitis. The emergency medical care you received today was directed at your acute symptoms. If you were prescribed any medication, please fill it and take as directed. It may take several days for your symptoms to resolve. Return to the Emergency Department if your symptoms worsen, do not improve, or if you have any other problems. Please call one of the physicians/clinics you have been referred to that are listed on the Patient Visit Information form that is included in your discharge packet. Bring any paperwork you were given at discharge with you along with any medications you are taking to your follow up visit. Our treatment cannot replace ongoing medical care by a primary care provider (PCP) outside of the emergency department. Thank you for allowing the [facility] team to be part of your care today. Prescriptions: Guaifenesin [Adult Tussin Chest Congestion] 200 mg PO Q6H PRN #200 ml PRN Reason: Cough Ibuprofen [Motrin Tab] 600 mg PO QID PRN #20 tab PRN Reason: Pain, Moderate (4-7) Instructions: Laryngitis Forms: [facility] (Bulgarian) - PA / TINT [employer]AYER / Resident Statement MD/DO has reviewed & agrees with the documentation as recorded.
[2017-09-29] MEDS ORDERED: guaiFENesin 100 mg/5 ml Syrup UD ONE (20:42)
[2017-09-29 20:52] VITALS: PULSE 90
== END 2017-09-29 20:52 | disposition home or self-care (01) ==
LOC: H.ER 20:01
DX: J04.0 Acute laryngitis (principal); E11.9 Type 2 diabetes mellitus without complications

== ENCOUNTER 2017-10-03 17:58 | Emergency (ER) | payer OTHER ==
[2017-10-03 17:58] VITALS: BMI 28.1
[2017-10-03 19:00] VITALS: BP 130/68; PULSE 78; RESP 16; TEMP 98.4; O2SAT 99
--- NOTE | 2017-10-03 19:35 | ED PDOC ---
HPI: General Adult Time Seen by Provider: 10/03/17 19:34 Chief Complaint (Nursing): Med Refill Chief Complaint (Provider): med refill History Per: Patient Additional Complaint(s): 47-year-old male presents to emergency department requesting refill of Dilantin. Patient takes 100 mg tablets 3 times a day. Patient is also requesting refill for cough medicine. He denies any chest pain, shortness of breath or dyspnea on exertion. Past Medical History Reviewed: Historical Data, Nursing Documentation, Vital Signs Vital Signs: Last Vital Signs Temp 98.4 F 10/03/17 18:57 Pulse 78 10/03/17 18:57 Resp 16 10/03/17 18:57 BP 130/68 10/03/17 18:57 Pulse Ox 99 10/03/17 19:35 - Medical History PMH: Asthma, CAD, COPD, Diabetes, Emphysema, Fractures, HIV, HTN, Seizures - Surgical History Surgical History: CABG - Family History Family History: States: No Known Family Hx - Living Arrangements Living Arrangements: Alone - Social History Current smoker - smoking cessation education provided: Yes Alcohol: None Drugs: Denies - Home Medications Home Medications: Ambulatory Orders Medication Instructions Recorded Albuterol HFA [Ventolin HFA 90 2 puff IH [id number] PRN #1 inhaler 02/24/17 mcg/actuation (8 g)] Phenytoin, Extended [Dilantin 100 mg PO TID #90 cer 05/24/17 Kapseals] Albuterol HFA [Ventolin HFA 90 1 puff IH ASDIR #1 unit 05/30/17 mcg/actuation (8 g)] Cyclobenzaprine [Cyclobenzaprine 10 mg PO TID PRN #20 tab 05/30/17 HCl] Naproxen [Naprosyn] 500 mg PO BID #20 tab 05/30/17 Nabumetone [Relafen] 500 mg PO BID #20 tab 06/18/17 Phenytoin, Extended [Dilantin 100 mg PO TID #90 tab 06/18/17 Kapseals] Albuterol HFA [Ventolin HFA 90 1 - 2 puff IH Q4 PRN #1 inhaler 06/19/17 mcg/actuation (8 g)] Albuterol HFA [Ventolin HFA 90 2 puff IH [id number] PRN #1 inhaler 06/19/17 mcg/actuation (8 g)] Ibuprofen [Motrin Tab] 600 mg PO Q6 PRN #15 tab 06/19/17 Penicillin VK [Penicillin VK Tab] 500 mg PO Q6H PRN #28 tab 06/19/17 Prednisone 50 mg PO DAILY #4 tab 06/19/17 Ibuprofen [Motrin] 600 mg PO Q8 PRN #21 tab 06/24/17 Phenytoin, Extended [Dilantin 100 mg PO TID #30 each 08/15/17 Kapseals] Ibuprofen [Motrin] 600 mg PO Q6 PRN #30 tab 08/29/17 Phenytoin, Extended [Dilantin 100 mg PO TID #90 tab 08/29/17 Kapseals] Phenytoin, Extended [Dilantin 100 mg PO TID #21 cer 09/07/17 Kapseals] Amoxicillin/Clavulanate [Augmentin 1 tab PO BID #14 tab 09/13/17 875 MG-125 MG] Amoxicillin/Potassium Clav 1 each PO BID #20 tablet 09/13/17 [Augmentin 500-125 Tablet] Ibuprofen [Motrin Tab] 800 mg PO Q8 PRN #20 tab 09/13/17 Amoxicillin/Clavulanate [Augmentin 1 tab PO BID #10 tab 09/18/17 875 MG-125 MG] Ibuprofen [Motrin Tab] 800 mg PO Q8 PRN #10 tab 09/18/17 Guaifenesin [Adult Tussin Chest 200 mg PO Q6H PRN #200 ml 09/29/17 Congestion] Ibuprofen [Motrin Tab] 600 mg PO QID PRN #20 tab 09/29/17 Benzonatate 200 mg PO TID PRN #30 capsule 10/03/17 Phenytoin, Extended [Dilantin 100 mg PO TID #90 tab 10/03/17 Kapseals] - Allergies Allergies/Adverse Reactions: Allergies Allergy/AdvReac Type Severity Reaction Status Date / Time No Known Allergies Allergy Verified 10/03/17 18:57 Review of Systems ROS Statement: Except As Marked, All Systems Reviewed And Found Negative Constitutional: Negative for: Fever Cardiovascular: Negative for: Chest Pain Respiratory: Positive for: Cough. Negative for: Shortness of Breath, SOB with Exertion Gastrointestinal: Negative for: Nausea, Vomiting Neurological: Positive for: Seizures (denies any recent seizure activity) Physical Exam - Reviewed Nursing Documentation Reviewed: Yes Vital Signs Reviewed: Yes - Physical Exam Appears: Positive for: Well, Non-toxic, No Acute Distress Skin: Negative for: Rash Eye Exam: Positive for: Normal appearance Neck: Positive for: Normal Cardiovascular/Chest: Positive for: Regular Rate, Rhythm Respiratory: Positive for: Normal Breath Sounds. Negative for: Wheezing, Respiratory Distress Neurologic/Psych: Positive for: Alert, business leader II-XII (grossly intact), Oriented, Gait (steady) - ECG O2 Sat by Pulse Oximetry: 99 Pulse Ox Interpretation: Normal Medical Decision Making Medical Decision Makin-year-old male presents for medication refill. Patient was given prescription refill for Dilantin and Tessalon Perles. He was referred to clinic for follow up. Disposition - Clinical Impression Clinical Impression: Prescription refill, Cough - Patient ED Disposition Is Patient to be Admitted: No Counseled Patient/Family Regarding: Diagnosis, Need For Followup, Rx Given - Disposition Referrals: [facility] [Outside] Disposition: Routine/Home Disposition Time: 19:58 Condition: STABLE Additional Instructions: Take prescription meds as directed. Follow-up with clinic. Prescriptions: Benzonatate 200 mg PO TID PRN #30 capsule PRN Reason: Cough Phenytoin, Extended [Dilantin Kapseals] 100 mg PO TID #90 tab Instructions: Cough in Adults, Where to Get Help Paying for Your Prescriptions Forms: [employer] (Danish)
== END 2017-10-03 20:38 | disposition home or self-care (01) ==
LOC: H.ER 17:58
DX: Z76.0 Encounter for issue of repeat prescription (principal)

== ENCOUNTER 2017-12-14 20:29 | Emergency (ER) | payer OTHER ==
[2017-12-14 20:30] VITALS: BMI 28.1
[2017-12-14 20:44] VITALS: TEMP 97.8; O2SAT 96
--- NOTE | 2017-12-14 21:39 | ED PDOC ---
HPI: General Adult Time Seen by Provider: 12/14/17 20:54 Chief Complaint (Nursing): Dizziness/Lightheaded History Per: Patient Additional Complaint(s): Pt. states for the past 2 days he's had constant progressively worsening dizziness. States today he was unable to stand up causing him to fall face forward. Reports no LOC. States since symptoms became worse he decided to come to ED. Pt. states he rode his bike to ED. Pt. took his dilantin today. He is uncertain of last seizure. Denies extremity pain, LOC, N/V/D, tongue biting, incontinence. Past Medical History Vital Signs: Last Vital Signs Temp 97.8 F 12/14/17 20:44 Pulse 88 12/15/17 05:46 Resp 18 12/15/17 05:46 BP 122/84 12/15/17 05:46 Pulse Ox 96 12/15/17 06:10 - Medical History PMH: Asthma, CAD, COPD, Diabetes, Emphysema, Fractures, HTN, Pneumonia, Seizures Denies: Hepatitis, HIV, Chronic Kidney Disease, Sexually Transmitted Disease - Surgical History Surgical History: CABG - Family History Family History: States: No Known Family Hx - Immunization History Hx Tetanus Toxoid Vaccination: No Hx Influenza Vaccination: Yes Hx Pneumococcal Vaccination: No - Home Medications Home Medications: Ambulatory Orders Medication Instructions Recorded Albuterol HFA [Ventolin HFA 90 2 puff IH [id number] PRN #1 inhaler 02/24/17 mcg/actuation (8 g)] Phenytoin, Extended [Dilantin 100 mg PO TID #90 cer 05/24/17 Kapseals] Albuterol HFA [Ventolin HFA 90 1 puff IH ASDIR #1 unit 05/30/17 mcg/actuation (8 g)] Cyclobenzaprine [Cyclobenzaprine 10 mg PO TID PRN #20 tab 05/30/17 HCl] Naproxen [Naprosyn] 500 mg PO BID #20 tab 05/30/17 Nabumetone [Relafen] 500 mg PO BID #20 tab 06/18/17 Phenytoin, Extended [Dilantin 100 mg PO TID #90 tab 06/18/17 Kapseals] Albuterol HFA [Ventolin HFA 90 1 - 2 puff IH Q4 PRN #1 inhaler 06/19/17 mcg/actuation (8 g)] Albuterol HFA [Ventolin HFA 90 2 puff IH [id number] PRN #1 inhaler 06/19/17 mcg/actuation (8 g)] Ibuprofen [Motrin Tab] 600 mg PO Q6 PRN #15 tab 06/19/17 Penicillin VK [Penicillin VK Tab] 500 mg PO Q6H PRN #28 tab 06/19/17 Prednisone 50 mg PO DAILY #4 tab 06/19/17 Ibuprofen [Motrin] 600 mg PO Q8 PRN #21 tab 06/24/17 Phenytoin, Extended [Dilantin 100 mg PO TID #30 each 08/15/17 Kapseals] Ibuprofen [Motrin] 600 mg PO Q6 PRN #30 tab 08/29/17 Phenytoin, Extended [Dilantin 100 mg PO TID #90 tab 08/29/17 Kapseals] Phenytoin, Extended [Dilantin 100 mg PO TID #21 cer 09/07/17 Kapseals] Amoxicillin/Clavulanate [Augmentin 1 tab PO BID #14 tab 09/13/17 875 MG-125 MG] Amoxicillin/Potassium Clav 1 each PO BID #20 tablet 09/13/17 [Augmentin 500-125 Tablet] Ibuprofen [Motrin Tab] 800 mg PO Q8 PRN #20 tab 09/13/17 Amoxicillin/Clavulanate [Augmentin 1 tab PO BID #10 tab 09/18/17 875 MG-125 MG] Ibuprofen [Motrin Tab] 800 mg PO Q8 PRN #10 tab 09/18/17 Guaifenesin [Adult Tussin Chest 200 mg PO Q6H PRN #200 ml 09/29/17 Congestion] Ibuprofen [Motrin Tab] 600 mg PO QID PRN #20 tab 09/29/17 Benzonatate 200 mg PO TID PRN #30 capsule 10/03/17 Phenytoin, Extended [Dilantin 100 mg PO TID #90 tab 10/03/17 Kapseals] - Allergies Allergies/Adverse Reactions: Allergies Allergy/AdvReac Type Severity Reaction Status Date / Time No Known Allergies Allergy Verified 10/03/17 18:57 Review of Systems ROS Statement: Except As Marked, All Systems Reviewed And Found Negative Neurological: Positive for: Dizziness Physical Exam - Reviewed Nursing Documentation Reviewed: Yes Vital Signs Reviewed: Yes - Physical Exam Appears: Positive for: Well, Non-toxic, No Acute Distress Head Exam: Positive for: ATRAUMATIC, NORMAL INSPECTION, NORMOCEPHALIC Skin: Positive for: Normal Color, Warm. Negative for: Rash Eye Exam: Positive for: Normal appearance, EOMI, PERRL. Negative for: Nystagmus ENT: Positive for: Normal ENT Inspection Neck: Positive for: Normal, Painless ROM Cardiovascular/Chest: Positive for: Regular Rate, Rhythm. Negative for: Tachycardia Respiratory: Positive for: Normal Breath Sounds. Negative for: Respiratory Distress Gastrointestinal/Abdominal: Positive for: Normal Exam, Soft. Negative for: Tenderness Back: Positive for: Normal Inspection Extremity: Positive for: Normal ROM Neurologic/Psych: Positive for: Alert, Oriented. Negative for: Aphasia, Facial Droop - Laboratory Results Result Diagrams: 12/14/17 21:58 12/14/17 21:58 - ECG O2 Sat by Pulse Oximetry: 96 - CT Scan/US CT head w/o contrast: Other Rad Studies (CT/US): Read By Radiologist (negative) - Progress ED Course And Treament: Labs, EKG, CT head w/o contrast ordered. On re-evaluation, pt. admits to using marijuana today and states after smoking marijuan that is when he became dizzy. Still seems somnolent. Will continue to observe. On final re-evaluation, pt. states he is feeling much better. Gait steady unassisted. Denies chest pain, dizziness, headache. Disposition - Clinical Impression Clinical Impression: Marijuana use - Patient ED Disposition Is Patient to be Admitted: No - Disposition Referrals: [facility] [Outside] Disposition: Routine/Home Disposition Time: 06:03 Condition: IMPROVED Additional Instructions: JANAK MCCARTNEY, thank you for letting us take care of you today. Your provider was Chente Hanson MD and you were treated for MED EVAL. The emergency medical care you received today was directed at your acute symptoms. If you were prescribed any medication, please fill it and take as directed. It may take several days for your symptoms to resolve. Return to the Emergency Department if your symptoms worsen, do not improve, or if you have any other problems. Please contact your doctor or call one of the physicians/clinics you have been referred to that are listed on the Patient Visit Information form that is included in your discharge packet. Bring any paperwork you were given at discharge with you along with any medications you are taking to your follow up visit. Our treatment cannot replace ongoing medical care by a primary care provider outside of the emergency department. Thank you for allowing the [facility] team to be part of your care today. If you had an X-Ray or CT scan: A Radiologist will review the ED reading if any change in treatment is needed we will contact you. If you had a blood, urine, or wound culture: It will take several days for the results, if any change in treatment is needed we will contact you. If you had an STI test: It will take 48 hours for the results. Please call after 1 week if you have not heard back. Instructions: Marijuana Forms: [employer] (Frisian) Print Language: [place]
[2017-12-14 22:13] LABS: ALB/GLOB RATIO 1.3 (1.0-2.1); ALBUMIN 3.8 g/dL (3.5-5.0); ALT/SGPT 32 U/L (21-72); AST/SGOT 28 U/L (17-59); BLOOD UREA NITROGEN 14 mg/dl (9-20); CALCIUM 8.4 mg/dL (8.4-10.2); GFR AFRICAN-AMERICAN > 60; GFR NON-AFRICAN AMERICAN > 60
[2017-12-14 22:20] LABS: BASO % 0.4 % (0.0-2.0); EOS # 0.2 K/uL (0.0-0.7); EOS % 2.3 % (0.0-4.0); HEMOGLOBIN 12.8 g/dL (12.0-18.0); LYMPH # 1.7 K/uL (1.0-4.3); LYMPH % 21.1 % (20.0-40.0); MEAN CELL VOLUME 95.1 fl (80.0-94.0); MEAN CORPUSCULAR HEMOGLOBIN 31.7 pg (27.0-31.0); MEAN CORPUSCULAR HGB CONC 33.4 g/dL (33.0-37.0); MEAN PLATELET VOLUME 8.5 fl (7.2-11.7); MONO # 0.7 K/uL (0.0-0.8); MONO % 9.3 % (0.0-10.0); NEUT # 5.3 K/uL (1.8-7.0); NEUT % 66.9 % (50.0-75.0); NRBC % 0.2 % (0.0-0.0); RBC 4.03 Mil/uL (4.40-5.90); RED CELL DISTRIBUTION WIDTH 14.8 % (11.5-14.5); WHITE BLOOD COUNT 7.9 K/uL (4.8-10.8)
[2017-12-15 01:34] LABS: SQUAMOUS EPITHIAL < 1 /hpf (0-5); URINE BILIRUBIN NEGATIVE (NEGATIVE); URINE BLOOD NEGATIVE (NEGATIVE); URINE CLARITY CLEAR (Clear); URINE COLOR YELLOW (YELLOW); URINE GLUCOSE (UA) NEG (Normal); URINE LEUKOCYTE ESTERASE NEG Leu/uL (Negative); URINE PROTEIN NEGATIVE (NEGATIVE); URINE UROBILINOGEN 0.2-1.0 mg/dL (0.2-1.0)
[2017-12-15 01:50] LABS: BARBITURATES, UR NEGATIVE (NEGATIVE)
[2017-12-15 01:52] LABS: BENZODIAZEPINES, UR NEGATIVE (NEGATIVE); OPIATES, UR NEGATIVE (NEGATIVE); PHENCYCLIDINE, UR NEGATIVE (NEGATIVE)
[2017-12-15 05:53] VITALS: BP 122/84; PULSE 88; RESP 18
--- NOTE | 2017-12-15 10:53 | CT ---
Date of service: 12/14/2017 PROCEDURE: CT HEAD WITHOUT CONTRAST. HISTORY: trauma COMPARISON: Comparison made with prior CT scan brain 06/10/2017. TECHNIQUE: Axial computed tomography images were obtained through the head/brain without intravenous contrast. Radiation dose: Total exam DLP = 920.64 mGy-cm. This CT exam was performed using one or more of the following dose reduction techniques: Automated exposure control, adjustment of the mA and/or kV according to patient size, and/or use of iterative reconstruction technique. FINDINGS: HEMORRHAGE: No acute parenchymal, subarachnoid or extra-axial hemorrhage. BRAIN: Re- demonstrated are presumed post traumatic encephalomalacia changes bilateral frontal lobes. Moderate to significant generalized volume loss VENTRICLES: There is ex vacuo dilatation of the ventricular system particularly horns. CALVARIUM: Calvarium intact. Old fracture deformity right lamina papyracea and apparent old fracture of the right orbital floor. PARANASAL SINUSES: Minor mucosal thickening noted within the maxillary antra bilaterally. MASTOID AIR CELLS: Unremarkable as visualized. No inflammatory changes. OTHER FINDINGS: None. IMPRESSION: No acute intracranial hemorrhage. Posttraumatic encephalomalacia changes both frontal lobes with ex vacuo dilatation of the ventricular system particularly the frontal horns. Moderate to significant generalized volume loss Bold fracture deformities of the right orbital floor and right lamina papyracea.
--- NOTE | 2017-12-15 11:39 | CT ---
Date of service: 12/14/2017 PROCEDURE: CT Cervical Spine without contrast HISTORY: Trauma COMPARISON: No prior study available comparison TECHNIQUE: Axial computed tomography images were obtained of the cervical spine without the use of intravenous contrast. Coronal and sagittal reformatted images were created and reviewed. Radiation dose: Total exam DLP = 622.45 mGy-cm. This CT exam was performed using one or more of the following dose reduction techniques: Automated exposure control, adjustment of the mA and/or kV according to patient size, and/or use of iterative reconstruction technique. FINDINGS: VERTEBRAE: No acute compression fractures nor retropulsed fragments. Vertebral bodies exhibit normal stature. . . There is straightening of the normal cervical lordosis which may be in part due to patient positioning gantry however underlying element of muscle spasm may contribute. Vertebral bodies otherwise exhibit normal alignment. Facets normally aligned. DISCS/SPINAL CANAL/NEURAL FORAMINA: Degenerative spondylosis on seen at the C5-C6 level. Changes include disc space narrowing, subchondral eburnation/ sclerosis and cystic changes with small broad-based disc ridge complex contiguous with hypertrophic uncovertebral joints. Facets also overgrown. Central canal is slightly narrowed. Exit foramina are stenotic bilaterally. . At the C4-C5 level, there is also mild disc space narrowing with small the anterior osteophyte formation. The uncovertebral facets are mildly hypertrophic. Exit foramina appear narrowed bilaterally. PARASPINAL SOFT TISSUES: Unremarkable. OTHER FINDINGS: None. Markedly enlarged pulmonary trunk. Rule out underlying pulmonary arterial hypertension. There are also a few small nonspecific mediastinal lymph nodes present. IMPRESSION: No acute fractures. Multilevel degenerative spondylosis most notably affecting the C5-C6 level as above Preliminary report provided by overnight radiology service.
--- NOTE | 2017-12-16 10:11 | CARD ---
APPROVED REPORT Date of service: 12/14/2017 EKG Measurement Heart [id number] <Conclusion> Normal sinus rhythm Normal ECG
== END 2017-12-15 06:13 | disposition home or self-care (01) ==
LOC: H.ER 20:29
DX: F12.90 Cannabis use, unspecified, uncomplicated (principal); E11.9 Type 2 diabetes mellitus without complications; I10 Essential (primary) hypertension; I25.10 Atherosclerotic heart disease of native coronary artery without angina pectoris

== ENCOUNTER 2017-12-15 19:22 | Emergency (ER) | payer OTHER ==
[2017-12-15 19:23] VITALS: BMI 28.1
--- NOTE | 2017-12-15 20:54 | ED PDOC ---
Syncope/Near Syncope/Dizziness Time Seen by Provider: 12/15/17 19:35 Chief Complaint (Nursing): Dizziness/Lightheaded Chief Complaint (Provider): Dizziness/Lightheaded Additional Complaint(s): Alonzo Lafleur is a 47 y/o male with a history of multiple visits to ED and is well known for a history of substance abuse and bed seeking behavior who presents to the ED complaining of dizziness. Patient was seen last night with the same complaints. Patient admits to marijuana use but denies any associated drug or alcohol use. He received a head CT and cervical spine CT on his previous visit less than 24 hours ago and they were normal. PMD: None provided Past Medical History Reviewed: Historical Data, Nursing Documentation, Vital Signs Vital Signs: Last Vital Signs Temp 98.8 F 12/15/17 19:26 Pulse 94 H 12/15/17 19:26 Resp 18 12/15/17 19:26 BP 133/87 12/15/17 19: Pulse Ox 95 12/15/17 19:26 - Medical History PMH: Asthma, CAD, COPD, Diabetes, Emphysema, Fractures, HTN, Pneumonia, Seizures Denies: Hepatitis, HIV, Chronic Kidney Disease, Sexually Transmitted Disease - Surgical History Surgical History: CABG - Family History Family History: States: Unknown Family Hx - Social History Current smoker - smoking cessation education provided: Yes Alcohol: Occasional Drugs: Cannabis - Immunization History Hx Tetanus Toxoid Vaccination: No Hx Influenza Vaccination: Yes Hx Pneumococcal Vaccination: No - Home Medications Home Medications: Ambulatory Orders Medication Instructions Recorded Albuterol HFA [Ventolin HFA 90 2 puff IH [id number] PRN #1 inhaler 02/24/17 mcg/actuation (8 g)] Phenytoin, Extended [Dilantin 100 mg PO TID #90 cer 05/24/17 Kapseals] Albuterol HFA [Ventolin HFA 90 1 puff IH ASDIR #1 unit 05/30/17 mcg/actuation (8 g)] Cyclobenzaprine [Cyclobenzaprine 10 mg PO TID PRN #20 tab 05/30/17 HCl] Naproxen [Naprosyn] 500 mg PO BID #20 tab 05/30/17 Nabumetone [Relafen] 500 mg PO BID #20 tab 06/18/17 Phenytoin, Extended [Dilantin 100 mg PO TID #90 tab 06/18/17 Kapseals] Albuterol HFA [Ventolin HFA 90 1 - 2 puff IH Q4 PRN #1 inhaler 06/19/17 mcg/actuation (8 g)] Albuterol HFA [Ventolin HFA 90 2 puff IH [id number] PRN #1 inhaler 06/19/17 mcg/actuation (8 g)] Ibuprofen [Motrin Tab] 600 mg PO Q6 PRN #15 tab 06/19/17 Penicillin VK [Penicillin VK Tab] 500 mg PO Q6H PRN #28 tab 06/19/17 Prednisone 50 mg PO DAILY #4 tab 06/19/17 Ibuprofen [Motrin] 600 mg PO Q8 PRN #21 tab 06/24/17 Phenytoin, Extended [Dilantin 100 mg PO TID #30 each 08/15/17 Kapseals] Ibuprofen [Motrin] 600 mg PO Q6 PRN #30 tab 08/29/17 Phenytoin, Extended [Dilantin 100 mg PO TID #90 tab 08/29/17 Kapseals] Phenytoin, Extended [Dilantin 100 mg PO TID #21 cer 09/07/17 Kapseals] Amoxicillin/Clavulanate [Augmentin 1 tab PO BID #14 tab 09/13/17 875 MG-125 MG] Amoxicillin/Potassium Clav 1 each PO BID #20 tablet 09/13/17 [Augmentin 500-125 Tablet] Ibuprofen [Motrin Tab] 800 mg PO Q8 PRN #20 tab 09/13/17 Amoxicillin/Clavulanate [Augmentin 1 tab PO BID #10 tab 09/18/17 875 MG-125 MG] Ibuprofen [Motrin Tab] 800 mg PO Q8 PRN #10 tab 09/18/17 Guaifenesin [Adult Tussin Chest 200 mg PO Q6H PRN #200 ml 09/29/17 Congestion] Ibuprofen [Motrin Tab] 600 mg PO QID PRN #20 tab 09/29/17 Benzonatate 200 mg PO TID PRN #30 capsule 10/03/17 Phenytoin, Extended [Dilantin 100 mg PO TID #90 tab 10/03/17 Kapseals] Meclizine [Antivert] 25 mg PO Q6 PRN #12 tab 12/16/17 - Allergies Allergies/Adverse Reactions: Allergies Allergy/AdvReac Type Severity Reaction Status Date / Time No Known Allergies Allergy Verified 10/03/17 18:57 Review of Systems ROS Statement: Except As Marked, All Systems Reviewed And Found Negative Constitutional: Negative for: Fever Neurological: Positive for: Dizziness Physical Exam - Reviewed Nursing Documentation Reviewed: Yes Vital Signs Reviewed: Yes - Physical Exam Appears: Positive for: Non-toxic, No Acute Distress Head Exam: Positive for: ATRAUMATIC, NORMOCEPHALIC Skin: Positive for: Normal Color, Warm, Dry Eye Exam: Positive for: EOMI, Normal appearance, PERRL Neck: Positive for: Normal, Painless ROM, Supple Cardiovascular/Chest: Positive for: Regular Rate, Rhythm. Negative for: Murmur Respiratory: Positive for: Normal Breath Sounds. Negative for: Respiratory Distress Gastrointestinal/Abdominal: Positive for: Normal Exam, Soft. Negative for: Tenderness Back: Positive for: Normal Inspection. Negative for: L CVA Tenderness, R CVA Tenderness, Vertebral Tenderness (midline) Extremity: Positive for: Normal ROM. Negative for: Pedal Edema, Deformity Neurologic/Psych: Positive for: Alert, Oriented. Negative for: Motor/Sensory Deficits - Laboratory Results Result Diagrams: 12/15/17 21:27 12/15/17 21:27 - ECG O2 Sat by Pulse Oximetry: 95 (RA) Pulse Ox Interpretation: Normal Medical Decision Making Medical Decision Making: Patient is requesting for head of bed to be reclined and for lights to be turned off. Time: 19:36 Initial Impression: 47 y/o male with nonspecific dizziness, setting of known substance abuse and bed seeking behavior. Initial Plan: --EKG --Alcohol serum --CMP --Drug screen --CBC with differential --Accucheck --Urinalysis 2100 Labs reviewed, with no clinically singificant abnormalities. 0000 Patient resting in room, no acute distress. 0545 Patient states he is feeling dizzy, Meclizine 25mg PO given. 0605 Patient reports a headache, Tylenol 650mg PO given. 07 Patient signed out to Dr. Balderas pending reassessment and disposition. Scribe Attestation: Documented by Brian Tejeda and Ashlee Arias, acting as scribes for Chente Hanson MD. Provider Scribe Attestation: All medical record entries made by the Scribe were at my direction and personally dictated by me. I have reviewed the chart and agree that the record accurately reflects my personal performance of the history, physical exam, medical decision making, and the department course for this patient. I have also personally directed, reviewed, and agree with the discharge instructions and disposition. Disposition - Clinical Impression Clinical Impression: Dizziness - Patient ED Disposition Is Patient to be Admitted: Transfer of Care - Disposition Disposition: Transfer of Care Disposition Time: 07:00 Condition: STABLE Prescriptions: Meclizine [Antivert] 25 mg PO Q6 PRN #12 tab PRN Reason: Dizziness Instructions: Vertigo (a Type of Dizziness) Forms: [employer] (Latvian)
[2017-12-15 21:36] LABS: BASO % 0.2 % (0.0-2.0); EOS # 0.2 K/uL (0.0-0.7); EOS % 2.5 % (0.0-4.0); HEMOGLOBIN 12.6 g/dL (12.0-18.0); LYMPH # 1.4 K/uL (1.0-4.3); LYMPH % 20.8 % (20.0-40.0); MEAN CELL VOLUME 95.1 fl (80.0-94.0); MEAN CORPUSCULAR HEMOGLOBIN 31.9 pg (27.0-31.0); MEAN CORPUSCULAR HGB CONC 33.5 g/dL (33.0-37.0); MEAN PLATELET VOLUME 8.3 fl (7.2-11.7); MONO # 0.5 K/uL (0.0-0.8); MONO % 7.5 % (0.0-10.0); NEUT # 4.8 K/uL (1.8-7.0); RBC 3.95 Mil/uL (4.40-5.90); RED CELL DISTRIBUTION WIDTH 14.8 % (11.5-14.5)
[2017-12-15 21:44] LABS: ALB/GLOB RATIO 1.4 (1.0-2.1); ALBUMIN 3.5 g/dL (3.5-5.0); ALT/SGPT 27 U/L (21-72); AST/SGOT 31 U/L (17-59); BLOOD UREA NITROGEN 13 mg/dl (9-20); CALCIUM 8.1 mg/dL (8.4-10.2); GFR AFRICAN-AMERICAN > 60; GFR NON-AFRICAN AMERICAN > 60
[2017-12-15 22:04] LABS: SPERM URINE RARE /hpf; URINE BILIRUBIN NEGATIVE (NEGATIVE); URINE BLOOD NEGATIVE (NEGATIVE); URINE CLARITY CLEAR (Clear); URINE COLOR YELLOW (YELLOW); URINE GLUCOSE (UA) NEG (Normal); URINE LEUKOCYTE ESTERASE NEG Leu/uL (Negative); URINE PROTEIN NEGATIVE (NEGATIVE); URINE UROBILINOGEN 0.2-1.0 mg/dL (0.2-1.0)
[2017-12-15 22:14] LABS: BARBITURATES, UR NEGATIVE (NEGATIVE)
[2017-12-15 22:24] LABS: BENZODIAZEPINES, UR NEGATIVE (NEGATIVE); OPIATES, UR NEGATIVE (NEGATIVE); PHENCYCLIDINE, UR NEGATIVE (NEGATIVE)
[2017-12-16 06:51] VITALS: O2SAT 95
--- NOTE | 2017-12-16 07:18 | ED PDOC ---
- Laboratory Results Result Diagrams: 12/15/17 21:27 12/15/17 21:27 - ECG O2 Sat by Pulse Oximetry: 95 (RA) - Progress Re-evaluation Time: 07:31 Condition: Improved Medical Decision Making Medical Decision Making: Time: 07:00 --Patient care endorsed to Dr. Balderas from Dr. Hanson pending resolution of symptoms and final disposition. Disposition - Clinical Impression Clinical Impression: Dizziness - POA Present On Arrival: None - Disposition Referrals: [facility] [Outside] Disposition: Routine/Home Disposition Time: 07:32 Condition: STABLE Prescriptions: Meclizine [Antivert] 25 mg PO Q6 PRN #12 tab PRN Reason: Dizziness Instructions: Vertigo (a Type of Dizziness) Forms: [facility] (Kyrgyz)
[2017-12-16 07:36] VITALS: BP 130/78; PULSE 81; RESP 14; TEMP 98.3
== END 2017-12-16 08:41 | disposition home or self-care (01) ==
LOC: H.ER 19:22
DX: R42 Dizziness and giddiness (principal); I10 Essential (primary) hypertension; E11.9 Type 2 diabetes mellitus without complications; F19.10 Other psychoactive substance abuse, uncomplicated; F17.200 Nicotine dependence, unspecified, uncomplicated

== ENCOUNTER 2017-12-16 18:19 | Emergency (ER) | payer OTHER ==
[2017-12-16 18:20] VITALS: BMI 28.1
[2017-12-16 18:36] VITALS: TEMP 98.1
[2017-12-16 19:46] LABS: BASO % 0.5 % (0.0-2.0); EOS # 0.1 K/uL (0.0-0.7); EOS % 1.7 % (0.0-4.0); HEMOGLOBIN 13.5 g/dL (12.0-18.0); LYMPH # 1.2 K/uL (1.0-4.3); LYMPH % 19.4 % (20.0-40.0); MEAN CELL VOLUME 95.4 fl (80.0-94.0); MEAN CORPUSCULAR HGB CONC 33.6 g/dL (33.0-37.0); MEAN PLATELET VOLUME 8.3 fl (7.2-11.7); MONO # 0.5 K/uL (0.0-0.8); MONO % 8.3 % (0.0-10.0); NEUT # 4.4 K/uL (1.8-7.0); NEUT % 70.1 % (50.0-75.0); NRBC % 0.1 % (0.0-0.0); RBC 4.22 Mil/uL (4.40-5.90); RED CELL DISTRIBUTION WIDTH 14.9 % (11.5-14.5); WHITE BLOOD COUNT 6.3 K/uL (4.8-10.8)
[2017-12-16 20:08] LABS: PARTIAL THROMBOPLASTIN TIME 29.6 Seconds (25.6-37.1); PROTHROMBIN TIME 11.2 Seconds (9.8-13.1)
[2017-12-16 20:10] LABS: ALB/GLOB RATIO 1.4 (1.0-2.1); ALBUMIN 3.8 g/dL (3.5-5.0); ALT/SGPT 35 U/L (21-72); AST/SGOT 29 U/L (17-59); BLOOD UREA NITROGEN 11 mg/dl (9-20); CALCIUM 8.5 mg/dL (8.4-10.2); GFR AFRICAN-AMERICAN > 60; GFR NON-AFRICAN AMERICAN > 60
[2017-12-16 20:36] LABS: URINE BILIRUBIN NEGATIVE (NEGATIVE); URINE BLOOD NEGATIVE (NEGATIVE); URINE CLARITY CLEAR (Clear); URINE COLOR YELLOW (YELLOW); URINE GLUCOSE (UA) NEG (Normal); URINE LEUKOCYTE ESTERASE NEG Leu/uL (Negative); URINE PROTEIN NEGATIVE (NEGATIVE); URINE UROBILINOGEN 0.2-1.0 mg/dL (0.2-1.0)
[2017-12-16 20:49] LABS: BARBITURATES, UR NEGATIVE (NEGATIVE)
[2017-12-16 20:53] LABS: BENZODIAZEPINES, UR NEGATIVE (NEGATIVE); OPIATES, UR NEGATIVE (NEGATIVE); PHENCYCLIDINE, UR NEGATIVE (NEGATIVE)
--- NOTE | 2017-12-16 21:05 | ED PDOC ---
HPI: General Adult Time Seen by Provider: 12/16/17 19:15 Chief Complaint (Nursing): Weakness/Neurological Deficit Chief Complaint (Provider): Weakness/Neurological Deficit History Per: Patient History/Exam Limitations: no limitations Onset/Duration Of Symptoms: Days (x 1) Current Symptoms Are (Timing): Still Present Additional Complaint(s): 47 year old male, well known to this provider and the ED for bed seeking behavior and substance abuse, presents to the ED with weakness that began shortly prior to arrival. Patient has been seen here twice in the last 36 hours for similar symptoms. He was discharged at 9 am this morning after a lengthy workup and returned with same symptoms. PMD none Past Medical History Reviewed: Historical Data, Nursing Documentation, Vital Signs Vital Signs: Last Vital Signs Temp 98.1 F 12/16/17 18:26 Pulse 81 12/17/17 03:38 Resp 18 12/17/17 03:38 BP 112/59 L 12/17/17 03:38 Pulse Ox 95 12/17/17 03:38 - Medical History PMH: Asthma, CAD, COPD, Diabetes, Emphysema, Fractures, HTN, Pneumonia, Seizures Denies: Hepatitis, HIV, Chronic Kidney Disease, Sexually Transmitted Disease - Surgical History Surgical History: CABG - Family History Family History: States: Unknown Family Hx - Immunization History Hx Tetanus Toxoid Vaccination: No Hx Influenza Vaccination: Yes Hx Pneumococcal Vaccination: No - Home Medications Home Medications: Ambulatory Orders Medication Instructions Recorded Albuterol HFA [Ventolin HFA 90 2 puff IH [id number] PRN #1 inhaler 02/24/17 mcg/actuation (8 g)] Phenytoin, Extended [Dilantin 100 mg PO TID #90 cer 05/24/17 Kapseals] Albuterol HFA [Ventolin HFA 90 1 puff IH ASDIR #1 unit 05/30/17 mcg/actuation (8 g)] Cyclobenzaprine [Cyclobenzaprine 10 mg PO TID PRN #20 tab 05/30/17 HCl] Naproxen [Naprosyn] 500 mg PO BID #20 tab 05/30/17 Nabumetone [Relafen] 500 mg PO BID #20 tab 06/18/17 Phenytoin, Extended [Dilantin 100 mg PO TID #90 tab 06/18/17 Kapseals] Albuterol HFA [Ventolin HFA 90 1 - 2 puff IH Q4 PRN #1 inhaler 06/19/17 mcg/actuation (8 g)] Albuterol HFA [Ventolin HFA 90 2 puff IH [id number] PRN #1 inhaler 06/19/17 mcg/actuation (8 g)] Ibuprofen [Motrin Tab] 600 mg PO Q6 PRN #15 tab 06/19/17 Penicillin VK [Penicillin VK Tab] 500 mg PO Q6H PRN #28 tab 06/19/17 Prednisone 50 mg PO DAILY #4 tab 06/19/17 Ibuprofen [Motrin] 600 mg PO Q8 PRN #21 tab 06/24/17 Phenytoin, Extended [Dilantin 100 mg PO TID #30 each 08/15/17 Kapseals] Ibuprofen [Motrin] 600 mg PO Q6 PRN #30 tab 08/29/17 Phenytoin, Extended [Dilantin 100 mg PO TID #90 tab 08/29/17 Kapseals] Phenytoin, Extended [Dilantin 100 mg PO TID #21 cer 09/07/17 Kapseals] Amoxicillin/Clavulanate [Augmentin 1 tab PO BID #14 tab 09/13/17 875 MG-125 MG] Amoxicillin/Potassium Clav 1 each PO BID #20 tablet 09/13/17 [Augmentin 500-125 Tablet] Ibuprofen [Motrin Tab] 800 mg PO Q8 PRN #20 tab 09/13/17 Amoxicillin/Clavulanate [Augmentin 1 tab PO BID #10 tab 09/18/17 875 MG-125 MG] Ibuprofen [Motrin Tab] 800 mg PO Q8 PRN #10 tab 09/18/17 Guaifenesin [Adult Tussin Chest 200 mg PO Q6H PRN #200 ml 09/29/17 Congestion] Ibuprofen [Motrin Tab] 600 mg PO QID PRN #20 tab 09/29/17 Benzonatate 200 mg PO TID PRN #30 capsule 10/03/17 Phenytoin, Extended [Dilantin 100 mg PO TID #90 tab 10/03/17 Kapseals] Meclizine [Antivert] 25 mg PO Q6 PRN #12 tab 12/16/17 - Allergies Allergies/Adverse Reactions: Allergies Allergy/AdvReac Type Severity Reaction Status Date / Time No Known Allergies Allergy Verified 12/16/17 18:26 Review of Systems ROS Statement: Except As Marked, All Systems Reviewed And Found Negative Constitutional: Positive for: Weakness Physical Exam - Reviewed Nursing Documentation Reviewed: Yes Vital Signs Reviewed: Yes - Physical Exam Appears: Positive for: Non-toxic, No Acute Distress Head Exam: Positive for: ATRAUMATIC, NORMAL INSPECTION, NORMOCEPHALIC Skin: Positive for: Normal Color, Warm, Dry Eye Exam: Positive for: EOMI, Normal appearance, PERRL Neck: Positive for: Normal, Painless ROM, Supple Cardiovascular/Chest: Positive for: Regular Rate, Rhythm. Negative for: Murmur Respiratory: Positive for: Normal Breath Sounds. Negative for: Wheezing, Respiratory Distress Gastrointestinal/Abdominal: Positive for: Normal Exam, Soft. Negative for: Tenderness Extremity: Positive for: Normal ROM. Negative for: Deformity Neurologic/Psych: Positive for: Alert, Oriented (x 3). Negative for: Motor/ Sensory Deficits - Laboratory Results Result Diagrams: 12/16/17 19:37 12/16/17 19:37 - ECG O2 Sat by Pulse Oximetry: 98 (RA) Pulse Ox Interpretation: Normal Medical Decision Making Medical Decision Making: Time: 19:19 Impression: 47 year old male with non specific dizziness and weakness. Initial Plan: --labs --EKG Time: 06:50 Labs reviewed and no clinically significant abnormalities were found. Patient has been sleeping comfortably throughout shift. Patient is stable for discharge. ----- Scribe Attestation: Documented by Tawnya Hopkins, acting as a scribe for Chente Hanson MD Provider Scribe Attestation: All medical record entries made by the Scribe were at my direction and personally dictated by me. I have reviewed the chart and agree that the record accurately reflects my personal performance of the history, physical exam, medical decision making, and the department course for this patient. I have also personally directed, reviewed, and agree with the discharge instructions and disposition. Disposition - Clinical Impression Clinical Impression: Malingering - Patient ED Disposition Is Patient to be Admitted: No Counseled Patient/Family Regarding: Studies Performed, Diagnosis - Disposition Disposition: Routine/Home Disposition Time: 06:50 Condition: STABLE Forms: [facility] (Khmer)
[2017-12-16 21:07] VITALS: RESP 18
[2017-12-17 07:02] VITALS: BP 123/64; PULSE 90; O2SAT 95
--- NOTE | 2017-12-17 15:29 | CARD ---
APPROVED REPORT Date of service: 12/16/2017 EKG Measurement Heart [id number] <Conclusion> Normal sinus rhythm Left axis deviation Abnormal ECG
== END 2017-12-17 07:17 | disposition home or self-care (01) ==
LOC: H.ER 18:19
DX: Z76.5 Malingerer [conscious simulation] (principal); E11.9 Type 2 diabetes mellitus without complications; I10 Essential (primary) hypertension; I25.10 Atherosclerotic heart disease of native coronary artery without angina pectoris; Z95.1 Presence of aortocoronary bypass graft; J44.9 Chronic obstructive pulmonary disease, unspecified

== ENCOUNTER 2017-12-17 14:50 | Emergency (ER) | payer OTHER ==
[2017-12-17 15:28] VITALS: BMI 30.4
[2017-12-17 15:29] VITALS: O2SAT 99
[2017-12-17 16:26] VITALS: BP 128/84; PULSE 89; RESP 19; TEMP 97.8
--- NOTE | 2017-12-17 16:44 | ED PDOC ---
HPI: General Adult Time Seen by Provider: 12/17/17 16:16 Chief Complaint (Nursing): Medical Clearance Chief Complaint (Provider): "you know why I am here" History Per: Patient History/Exam Limitations: no limitations Additional Complaint(s): Pt sleeping in triage chair on my arrival. Pt states "you know why I am here" and will not answer additional questions. According to triage patient presents for weakness which he has been seen for the last 3 days. Past Medical History Reviewed: Historical Data, Nursing Documentation, Vital Signs Vital Signs: Last Vital Signs Temp 97.8 F 12/17/17 16:26 Pulse 89 12/17/17 16:26 Resp 19 12/17/17 16:26 BP 128/84 12/17/17 16:26 Pulse Ox 99 12/17/17 16:26 - Medical History PMH: Asthma, CAD, COPD, Diabetes, Emphysema, Fractures, HTN, Pneumonia, Seizures Denies: Hepatitis, HIV, Chronic Kidney Disease, Sexually Transmitted Disease - Surgical History Surgical History: CABG - Family History Family History: States: Unknown Family Hx - Living Arrangements Living Arrangements: With Family - Social History Current smoker - smoking cessation education provided: Yes - Immunization History Hx Tetanus Toxoid Vaccination: No Hx Influenza Vaccination: Yes Hx Pneumococcal Vaccination: No - Home Medications Home Medications: Ambulatory Orders Medication Instructions Recorded Albuterol HFA [Ventolin HFA 90 2 puff IH [id number] PRN #1 inhaler 02/24/17 mcg/actuation (8 g)] Phenytoin, Extended [Dilantin 100 mg PO TID #90 cer 05/24/17 Kapseals] Albuterol HFA [Ventolin HFA 90 1 puff IH ASDIR #1 unit 05/30/17 mcg/actuation (8 g)] Cyclobenzaprine [Cyclobenzaprine 10 mg PO TID PRN #20 tab 05/30/17 HCl] Naproxen [Naprosyn] 500 mg PO BID #20 tab 05/30/17 Nabumetone [Relafen] 500 mg PO BID #20 tab 06/18/17 Phenytoin, Extended [Dilantin 100 mg PO TID #90 tab 06/18/17 Kapseals] Albuterol HFA [Ventolin HFA 90 1 - 2 puff IH Q4 PRN #1 inhaler 01/17/18 mcg/actuation (8 g)] Albuterol HFA [Ventolin HFA 90 2 puff IH [id number] PRN #1 inhaler 06/19/17 mcg/actuation (8 g)] Ibuprofen [Motrin Tab] 600 mg PO Q6 PRN #15 tab 06/19/17 Penicillin VK [Penicillin VK Tab] 500 mg PO Q6H PRN #28 tab 06/19/17 Prednisone 50 mg PO DAILY #4 tab 06/19/17 Ibuprofen [Motrin] 600 mg PO Q8 PRN #21 tab 06/24/17 Phenytoin, Extended [Dilantin 100 mg PO TID #30 each 08/15/17 Kapseals] Ibuprofen [Motrin] 600 mg PO Q6 PRN #30 tab 08/29/17 Phenytoin, Extended [Dilantin 100 mg PO TID #90 tab 08/29/17 Kapseals] Phenytoin, Extended [Dilantin 100 mg PO TID #21 cer 09/07/17 Kapseals] Amoxicillin/Clavulanate [Augmentin 1 tab PO BID #14 tab 09/13/17 875 MG-125 MG] Amoxicillin/Potassium Clav 1 each PO BID #20 tablet 09/13/17 [Augmentin 500-125 Tablet] Ibuprofen [Motrin Tab] 800 mg PO Q8 PRN #20 tab 09/13/17 Amoxicillin/Clavulanate [Augmentin 1 tab PO BID #10 tab 09/18/17 875 MG-125 MG] Ibuprofen [Motrin Tab] 800 mg PO Q8 PRN #10 tab 09/18/17 Guaifenesin [Adult Tussin Chest 200 mg PO Q6H PRN #200 ml 09/29/17 Congestion] Ibuprofen [Motrin Tab] 600 mg PO QID PRN #20 tab 09/29/17 Benzonatate 200 mg PO TID PRN #30 capsule 10/03/17 Phenytoin, Extended [Dilantin 100 mg PO TID #90 tab 10/03/17 Kapseals] Meclizine [Antivert] 25 mg PO Q6 PRN #12 tab 12/16/17 - Allergies Allergies/Adverse Reactions: Allergies Allergy/AdvReac Type Severity Reaction Status Date / Time No Known Allergies Allergy Verified 12/16/17 18:26 Review of Systems ROS Statement: Except As Marked, All Systems Reviewed And Found Negative Constitutional: Negative for: Fever, Chills Neurological: Positive for: Weakness. Negative for: Headache Physical Exam - Reviewed Nursing Documentation Reviewed: Yes Vital Signs Reviewed: Yes - Physical Exam Appears: Positive for: Well, Non-toxic, No Acute Distress Head Exam: Positive for: ATRAUMATIC, NORMAL INSPECTION, NORMOCEPHALIC Skin: Positive for: Normal Color, Warm, DRY Eye Exam: Positive for: Normal appearance, EOMI, PERRL ENT: Positive for: Normal ENT Inspection Neck: Positive for: Normal, Painless ROM Cardiovascular/Chest: Positive for: Regular Rate, Rhythm Respiratory: Positive for: Normal Breath Sounds. Negative for: Accessory Muscle Use, Respiratory Distress Back: Positive for: Normal Inspection Extremity: Positive for: Normal ROM Neurologic/Psych: Positive for: Alert, Oriented - ECG O2 Sat by Pulse Oximetry: 99 Medical Decision Making Medical Decision Making: EKG and accuCheck normal. Labs from previous visits reviewed. Disposition - Clinical Impression Clinical Impression: Generalized weakness - Patient ED Disposition Is Patient to be Admitted: No Counseled Patient/Family Regarding: Diagnosis, Need For Followup - Disposition Disposition: Routine/Home Disposition Time: 16:51 Condition: GOOD Instructions: General (DC), Weakness (ED)
--- NOTE | 2017-12-19 15:34 | CARD ---
APPROVED REPORT Date of service: 12/17/2017 EKG Measurement Heart [id number] <Conclusion> Normal sinus rhythm Normal ECG
== END 2017-12-17 17:30 | disposition home or self-care (01) ==
LOC: H.ER 14:50
DX: R53.1 Weakness (principal)

== ENCOUNTER 2017-12-18 18:36 | Emergency (ER) | payer OTHER ==
[2017-12-18 18:36] VITALS: BMI 30.4
[2017-12-18 19:15] VITALS: BP 142/91; PULSE 95; RESP 16; TEMP 98.4; O2SAT 95
--- NOTE | 2017-12-18 20:59 | ED PDOC ---
HPI: General Adult Time Seen by Provider: 12/18/17 20:55 Chief Complaint (Nursing): Dizziness/Lightheaded Chief Complaint (Provider): dizziness History Per: Patient Additional Complaint(s): 47-year-old male presents to emergency department complaining of dizziness and weakness ongoing for about a week. Patient states, "my whole body hurts and I need to just rest here for a bit." Patient has been seen every day for the past 5 days for same complaints. He has been worked up for this and workup is negative. Patient was prescribed meclizine but states this has not helped. He denies alcohol or drug use. Patient currently non-domiciled. PMD: none Past Medical History Reviewed: Historical Data, Nursing Documentation, Vital Signs Vital Signs: Last Vital Signs Temp 98.4 F 12/18/17 19:13 Pulse 95 H 12/18/17 19:13 Resp 16 12/18/17 19:13 BP 142/91 H 12/18/17 19:13 Pulse Ox 95 12/18/17 21:14 - Medical History PMH: Asthma, CAD, COPD, Diabetes, Fractures, HTN, Seizures - Surgical History Surgical History: CABG - Family History Family History: States: No Known Family Hx - Living Arrangements Living Arrangements: Other (non-domiciled) - Social History Current smoker - smoking cessation education provided: No Alcohol: None Drugs: Denies - Home Medications Home Medications: Ambulatory Orders Medication Instructions Recorded Albuterol HFA [Ventolin HFA 90 2 puff IH [id number] PRN #1 inhaler 02/24/17 mcg/actuation (8 g)] Phenytoin, Extended [Dilantin 100 mg PO TID #90 cer 05/24/17 Kapseals] Albuterol HFA [Ventolin HFA 90 1 puff IH ASDIR #1 unit 05/30/17 mcg/actuation (8 g)] Cyclobenzaprine [Cyclobenzaprine 10 mg PO TID PRN #20 tab 05/30/17 HCl] Naproxen [Naprosyn] 500 mg PO BID #20 tab 05/30/17 Nabumetone [Relafen] 500 mg PO BID #20 tab 06/18/17 Phenytoin, Extended [Dilantin 100 mg PO TID #90 tab 06/18/17 Kapseals] Albuterol HFA [Ventolin HFA 90 1 - 2 puff IH Q4 PRN #1 inhaler 06/19/17 mcg/actuation (8 g)] Albuterol HFA [Ventolin HFA 90 2 puff IH [id number] PRN #1 inhaler 06/19/17 mcg/actuation (8 g)] Ibuprofen [Motrin Tab] 600 mg PO Q6 PRN #15 tab 06/19/17 Penicillin VK [Penicillin VK Tab] 500 mg PO Q6H PRN #28 tab 06/19/17 Prednisone 50 mg PO DAILY #4 tab 06/19/17 Ibuprofen [Motrin] 600 mg PO Q8 PRN #21 tab 06/24/17 Phenytoin, Extended [Dilantin 100 mg PO TID #30 each 08/15/17 Kapseals] Ibuprofen [Motrin] 600 mg PO Q6 PRN #30 tab 08/29/17 Phenytoin, Extended [Dilantin 100 mg PO TID #90 tab 08/29/17 Kapseals] Phenytoin, Extended [Dilantin 100 mg PO TID #21 cer 09/07/17 Kapseals] Amoxicillin/Clavulanate [Augmentin 1 tab PO BID #14 tab 09/13/17 875 MG-125 MG] Amoxicillin/Potassium Clav 1 each PO BID #20 tablet 09/13/17 [Augmentin 500-125 Tablet] Ibuprofen [Motrin Tab] 800 mg PO Q8 PRN #20 tab 09/13/17 Amoxicillin/Clavulanate [Augmentin 1 tab PO BID #10 tab 09/18/17 875 MG-125 MG] Ibuprofen [Motrin Tab] 800 mg PO Q8 PRN #10 tab 09/18/17 Guaifenesin [Adult Tussin Chest 200 mg PO Q6H PRN #200 ml 09/29/17 Congestion] Ibuprofen [Motrin Tab] 600 mg PO QID PRN #20 tab 09/29/17 Benzonatate 200 mg PO TID PRN #30 capsule 10/03/17 Phenytoin, Extended [Dilantin 100 mg PO TID #90 tab 10/03/17 Kapseals] Meclizine [Antivert] 25 mg PO Q6 PRN #12 tab 12/16/17 - Allergies Allergies/Adverse Reactions: Allergies Allergy/AdvReac Type Severity Reaction Status Date / Time No Known Allergies Allergy Verified 12/18/17 19:13 Review of Systems ROS Statement: Except As Marked, All Systems Reviewed And Found Negative Constitutional: Negative for: Fever, Chills Cardiovascular: Negative for: Chest Pain Respiratory: Negative for: Cough Gastrointestinal: Negative for: Nausea, Vomiting Neurological: Positive for: Dizziness. Negative for: Weakness, Numbness, Incoordination, Change in Speech, Confusion, Seizures, Altered Mental Status, Headache Physical Exam - Reviewed Nursing Documentation Reviewed: Yes Vital Signs Reviewed: Yes - Physical Exam Appears: Positive for: Well, Non-toxic, No Acute Distress Head Exam: Positive for: ATRAUMATIC Skin: Positive for: Normal Color. Negative for: Rash Eye Exam: Positive for: Normal appearance Cardiovascular/Chest: Positive for: Regular Rate, Rhythm Respiratory: Positive for: Normal Breath Sounds Back: Positive for: Normal Inspection Extremity: Positive for: Normal ROM Neurologic/Psych: Positive for: Alert, Oriented, Gait (steady) - ECG O2 Sat by Pulse Oximetry: 95 Pulse Ox Interpretation: Normal Medical Decision Making Medical Decision Makin47 y/o male with persistent dizziness. Patient is well-appearing, vital signs are stable, patient is ambulatory with steady gait. Previous records reviewed, patient has been seen for same complaints every day for the past 4 days. All lab work, CT head, EKG has been normal. Plan: IM zofran 4 mg PO meclizine 50 mg Disposition - Clinical Impression Clinical Impression: Dizziness of unknown cause - Patient ED Disposition Is Patient to be Admitted: No Counseled Patient/Family Regarding: Diagnosis, Need For Followup - Disposition Referrals: [facility] [Outside] Disposition: Routine/Home Disposition Time: 21:13 Condition: STABLE Additional Instructions: Follow up with clinic. Instructions: Dizziness, Nonvertigo, (DC) Forms: [employer] (Wallisian)
== END 2017-12-18 21:42 | disposition home or self-care (01) ==
LOC: H.ER 18:36
DX: R42 Dizziness and giddiness (principal); E11.9 Type 2 diabetes mellitus without complications; I10 Essential (primary) hypertension; I25.10 Atherosclerotic heart disease of native coronary artery without angina pectoris; Z95.1 Presence of aortocoronary bypass graft
CPT/HCPCS: 96372; 99282; J2405

== ENCOUNTER 2017-12-19 02:52 | Emergency (ER) | payer OTHER ==
[2017-12-19 02:53] VITALS: BMI 30.4
[2017-12-19 02:56] VITALS: RESP 18; TEMP 98; O2SAT 97
--- NOTE | 2017-12-19 03:15 | ED PDOC ---
HPI: General Adult Time Seen by Provider: 12/19/17 02:57 Chief Complaint (Nursing): Medical Clearance Chief Complaint (Provider): Medical Clearance History Per: Patient, EMS History/Exam Limitations: no limitations Onset/Duration Of Symptoms: Hrs Recently: Seen In ED Additional Complaint(s): Alonzo Lafleur is a 47 year old male well known to the ED and provider, with a past medical history of substance abuse, seizures, malingering , and bed seeking behavior who was brought to the ED under police custody for medical and psychiatric clearance. Patient was seen in this ED a few hours ago and was discharged. He offers no medical or psychiatric complaints at this time. PMD: none provided Past Medical History Reviewed: Historical Data, Nursing Documentation, Vital Signs Vital Signs: Last Vital Signs Temp 98 F 12/19/17 02:54 Pulse 93 H 12/19/17 02:54 Resp 18 12/19/17 02:54 BP 160/105 H 12/19/17 02:54 Pulse Ox 97 12/19/17 03:19 - Medical History PMH: Asthma, CAD, COPD, Diabetes, Emphysema, Fractures, HTN, Pneumonia, Seizures Denies: HIV, Chronic Kidney Disease, Sexually Transmitted Disease - Surgical History Surgical History: CABG - Family History Family History: States: Unknown Family Hx - Social History Current smoker - smoking cessation education provided: Yes Alcohol: None Drugs: Cannabis, Cocaine - Immunization History Hx Tetanus Toxoid Vaccination: No Hx Influenza Vaccination: Yes Hx Pneumococcal Vaccination: No - Home Medications Home Medications: Ambulatory Orders Medication Instructions Recorded Albuterol HFA [Ventolin HFA 90 2 puff IH [id number] PRN #1 inhaler 02/24/17 mcg/actuation (8 g)] Phenytoin, Extended [Dilantin 100 mg PO TID #90 cer 05/24/17 Kapseals] Albuterol HFA [Ventolin HFA 90 1 puff IH ASDIR #1 unit 05/30/17 mcg/actuation (8 g)] Cyclobenzaprine [Cyclobenzaprine 10 mg PO TID PRN #20 tab 05/30/17 HCl] Naproxen [Naprosyn] 500 mg PO BID #20 tab 05/30/17 Nabumetone [Relafen] 500 mg PO BID #20 tab 06/18/17 Phenytoin, Extended [Dilantin 100 mg PO TID #90 tab 06/18/17 Kapseals] Albuterol HFA [Ventolin HFA 90 1 - 2 puff IH Q4 PRN #1 inhaler 06/19/17 mcg/actuation (8 g)] Albuterol HFA [Ventolin HFA 90 2 puff IH [id number] PRN #1 inhaler 06/19/17 mcg/actuation (8 g)] Ibuprofen [Motrin Tab] 600 mg PO Q6 PRN #15 tab 06/19/17 Penicillin VK [Penicillin VK Tab] 500 mg PO Q6H PRN #28 tab 06/19/17 Prednisone 50 mg PO DAILY #4 tab 06/19/17 Ibuprofen [Motrin] 600 mg PO Q8 PRN #21 tab 06/24/17 Phenytoin, Extended [Dilantin 100 mg PO TID #30 each 08/15/17 Kapseals] Ibuprofen [Motrin] 600 mg PO Q6 PRN #30 tab 08/29/17 Phenytoin, Extended [Dilantin 100 mg PO TID #90 tab 08/29/17 Kapseals] Phenytoin, Extended [Dilantin 100 mg PO TID #21 cer 09/07/17 Kapseals] Amoxicillin/Clavulanate [Augmentin 1 tab PO BID #14 tab 09/13/17 875 MG-125 MG] Amoxicillin/Potassium Clav 1 each PO BID #20 tablet 09/13/17 [Augmentin 500-125 Tablet] Ibuprofen [Motrin Tab] 800 mg PO Q8 PRN #20 tab 09/13/17 Amoxicillin/Clavulanate [Augmentin 1 tab PO BID #10 tab 09/18/17 875 MG-125 MG] Ibuprofen [Motrin Tab] 800 mg PO Q8 PRN #10 tab 09/18/17 Guaifenesin [Adult Tussin Chest 200 mg PO Q6H PRN #200 ml 09/29/17 Congestion] Ibuprofen [Motrin Tab] 600 mg PO QID PRN #20 tab 09/29/17 Benzonatate 200 mg PO TID PRN #30 capsule 10/03/17 Phenytoin, Extended [Dilantin 100 mg PO TID #90 tab 10/03/17 Kapseals] Meclizine [Antivert] 25 mg PO Q6 PRN #12 tab 12/16/17 - Allergies Allergies/Adverse Reactions: Allergies Allergy/AdvReac Type Severity Reaction Status Date / Time No Known Allergies Allergy Verified 12/18/17 19:13 Review of Systems ROS Statement: Except As Marked, All Systems Reviewed And Found Negative Physical Exam - Reviewed Nursing Documentation Reviewed: Yes Vital Signs Reviewed: Yes - Physical Exam Appears: Positive for: Well, Non-toxic, No Acute Distress Head Exam: Positive for: ATRAUMATIC, NORMAL INSPECTION, NORMOCEPHALIC Skin: Positive for: Normal Color, Warm, DRY Eye Exam: Positive for: EOMI, Normal appearance, PERRL ENT: Positive for: Normal ENT Inspection Neck: Positive for: Normal, Painless ROM Cardiovascular/Chest: Positive for: Regular Rate, Rhythm Respiratory: Positive for: Normal Breath Sounds. Negative for: Respiratory Distress Gastrointestinal/Abdominal: Positive for: Normal Exam, Soft Back: Positive for: Normal Inspection Extremity: Positive for: Normal ROM. Negative for: Deformity, Swelling Neurologic/Psych: Positive for: Alert, Oriented. Negative for: Motor/Sensory Deficits - ECG O2 Sat by Pulse Oximetry: 97 (RA) Pulse Ox Interpretation: Normal Medical Decision Making Medical Decision Making: Time: 3:17 Impression: 47 year old male presenting for clearance for incarceration --Patient offers no medical or psychiatric complaints at this time. --Upon provider evaluation, patient requires no further treatment in the ED at this time. --He is stable and ready for discharge. Scribe Attestation: Documented by Michelle Kiran, acting as a scribe for Chente Hanson MD. Provider Scribe Attestation: All medical record entries made by the Scribe were at my direction and personally dictated by me. I have reviewed the chart and agree that the record accurately reflects my personal performance of the history, physical exam, medical decision making, and the department course for this patient. I have also personally directed, reviewed, and agree with the discharge instructions and disposition. Disposition - Clinical Impression Clinical Impression: Malingering - Patient ED Disposition Is Patient to be Admitted: No - Disposition Disposition: Discharged/Transfer to Law Enforcement Disposition Time: 03:20 Condition: STABLE Additional Instructions: Patient is medically and psychiatrically stable for incarceration Instructions: General (DC) Forms: [employer] (Cypriot)
[2017-12-19 03:26] VITALS: BP 151/92; PULSE 88
== END 2017-12-19 03:10 ==
LOC: H.ER 02:52
DX: Z76.5 Malingerer [conscious simulation]; E11.9 Type 2 diabetes mellitus without complications; F17.200 Nicotine dependence, unspecified, uncomplicated; I10 Essential (primary) hypertension; I25.10 Atherosclerotic heart disease of native coronary artery without angina pectoris; J44.9 Chronic obstructive pulmonary disease, unspecified; R56.9 Unspecified convulsions; Z95.1 Presence of aortocoronary bypass graft

== ENCOUNTER 2018-01-20 23:13 | Emergency (ER) | payer OTHER ==
[2018-01-20 23:14] VITALS: BMI 30.4
[2018-01-20 23:26] VITALS: TEMP 98.6; O2SAT 99
--- NOTE | 2018-01-21 00:19 | ED PDOC ---
HPI: General Adult Time Seen by Provider: 01/20/18 23:33 Chief Complaint (Nursing): Medical Clearance Chief Complaint (Provider): Medical Clearance History Per: Patient History/Exam Limitations: no limitations Onset/Duration Of Symptoms: Hrs Additional Complaint(s): Alonzo Lafleur is a 47 year old male well known to the ED and provider for multiple visits, with a past medical history of a seizure disorder , who was brought to the ED under [place] [employer] custody for medical and psychiatric evaluation. Patient denies any acute complaints at this time but does report having a seizure earlier today and admits to non-compliance with his Dilantin. PMD: none provided Past Medical History Reviewed: Historical Data, Nursing Documentation, Vital Signs Vital Signs: Last Vital Signs Temp 98.6 F 01/20/18 23:24 Pulse 79 01/21/18 06:31 Resp 18 01/21/18 06:31 BP 130/85 01/21/18 06:31 Pulse Ox 99 01/21/18 06:31 - Medical History PMH: Asthma, CAD, COPD, Diabetes, Emphysema, Fractures, HTN, Pneumonia, Seizures Denies: Hepatitis, HIV, Chronic Kidney Disease, Sexually Transmitted Disease - Surgical History Surgical History: CABG - Family History Family History: States: Unknown Family Hx - Living Arrangements Living Arrangements: Other (homeless) - Social History Current smoker - smoking cessation education provided: No Alcohol: Social Drugs: Denies - Immunization History Hx Tetanus Toxoid Vaccination: No Hx Influenza Vaccination: Yes Hx Pneumococcal Vaccination: No - Home Medications Home Medications: Ambulatory Orders Medication Instructions Recorded Albuterol HFA [Ventolin HFA 90 2 puff IH [id number] PRN #1 inhaler 02/24/17 mcg/actuation (8 g)] Phenytoin, Extended [Dilantin 100 mg PO TID #90 cer 05/24/17 Kapseals] Albuterol HFA [Ventolin HFA 90 1 puff IH ASDIR #1 unit 05/30/17 mcg/actuation (8 g)] Cyclobenzaprine [Cyclobenzaprine 10 mg PO TID PRN #20 tab 05/30/17 HCl] Naproxen [Naprosyn] 500 mg PO BID #20 tab 05/30/17 Nabumetone [Relafen] 500 mg PO BID #20 tab 06/18/17 Phenytoin, Extended [Dilantin 100 mg PO TID #90 tab 06/18/17 Kapseals] Albuterol HFA [Ventolin HFA 90 1 - 2 puff IH Q4 PRN #1 inhaler 06/19/17 mcg/actuation (8 g)] Albuterol HFA [Ventolin HFA 90 2 puff IH [id number] PRN #1 inhaler 06/19/17 mcg/actuation (8 g)] Ibuprofen [Motrin Tab] 600 mg PO Q6 PRN #15 tab 06/19/17 Penicillin VK [Penicillin VK Tab] 500 mg PO Q6H PRN #28 tab 06/19/17 Prednisone 50 mg PO DAILY #4 tab 06/19/17 Ibuprofen [Motrin] 600 mg PO Q8 PRN #21 tab 06/24/17 Phenytoin, Extended [Dilantin 100 mg PO TID #30 each 08/15/17 Kapseals] Ibuprofen [Motrin] 600 mg PO Q6 PRN #30 tab 08/29/17 Phenytoin, Extended [Dilantin 100 mg PO TID #90 tab 08/29/17 Kapseals] Phenytoin, Extended [Dilantin 100 mg PO TID #21 cer 09/07/17 Kapseals] Amoxicillin/Clavulanate [Augmentin 1 tab PO BID #14 tab 09/13/17 875 MG-125 MG] Amoxicillin/Potassium Clav 1 each PO BID #20 tablet 09/13/17 [Augmentin 500-125 Tablet] Ibuprofen [Motrin Tab] 800 mg PO Q8 PRN #20 tab 09/13/17 Amoxicillin/Clavulanate [Augmentin 1 tab PO BID #10 tab 09/18/17 875 MG-125 MG] Ibuprofen [Motrin Tab] 800 mg PO Q8 PRN #10 tab 09/18/17 Guaifenesin [Adult Tussin Chest 200 mg PO Q6H PRN #200 ml 09/29/17 Congestion] Ibuprofen [Motrin Tab] 600 mg PO QID PRN #20 tab 09/29/17 Benzonatate 200 mg PO TID PRN #30 capsule 10/03/17 Phenytoin, Extended [Dilantin 100 mg PO TID #90 tab 10/03/17 Kapseals] Meclizine [Antivert] 25 mg PO Q6 PRN #12 tab 12/16/17 - Allergies Allergies/Adverse Reactions: Allergies Allergy/AdvReac Type Severity Reaction Status Date / Time No Known Allergies Allergy Verified 12/18/17 19:13 Review of Systems ROS Statement: Except As Marked, All Systems Reviewed And Found Negative Constitutional: Positive for: Other (no acute complaints ) Neurological: Positive for: Seizures (ealier today (due to non-compliance of medication)) Physical Exam - Reviewed Nursing Documentation Reviewed: Yes Vital Signs Reviewed: Yes - Physical Exam Appears: Positive for: Well, Non-toxic, No Acute Distress Head Exam: Positive for: ATRAUMATIC, NORMAL INSPECTION, NORMOCEPHALIC Skin: Positive for: Normal Color, Warm, DRY Eye Exam: Positive for: EOMI, Normal appearance, PERRL ENT: Positive for: Normal ENT Inspection Neck: Positive for: Normal Cardiovascular/Chest: Positive for: Regular Rate, Rhythm. Negative for: Murmur Respiratory: Positive for: Normal Breath Sounds. Negative for: Respiratory Distress Gastrointestinal/Abdominal: Positive for: Normal Exam, Soft. Negative for: Tenderness Back: Positive for: Normal Inspection Extremity: Positive for: Normal ROM. Negative for: Deformity, Swelling Neurologic/Psych: Positive for: Alert, Oriented. Negative for: Motor/Sensory Deficits - ECG O2 Sat by Pulse Oximetry: 99 (RA) Pulse Ox Interpretation: Normal Medical Decision Making Medical Decision Making: Time: 23:34 Impression: 47 year old male presenting for medical and psychiatric evaluation Plan: --Crisis Evaluation --Dilantin 300 mg PO Patient was evaluated by crisis team. Upon provider evaluation, patient is stable for discharge and will be discharged into the custody of [facility]. Scribe Attestation: Documented by Michelle Kiran, acting as a scribe for Chente Hanson MD. Provider Scribe Attestation: All medical record entries made by the Scribe were at my direction and personally dictated by me. I have reviewed the chart and agree that the record accurately reflects my personal performance of the history, physical exam, medical decision making, and the department course for this patient. I have also personally directed, reviewed, and agree with the discharge instructions and disposition. Disposition - Clinical Impression Clinical Impression: Seizure disorder - Patient ED Disposition Is Patient to be Admitted: No - Disposition Disposition: Discharged/Transfer to Law Enforcement Disposition Time: 05:10 Condition: STABLE Additional Instructions: Patient is medically and psychiatrically stable for incarceration Instructions: Seizures, Adult (DC) Forms: [email or web address] (Albanian)
[2018-01-21 06:32] VITALS: BP 130/85; PULSE 79; RESP 18
== END 2018-01-21 06:05 | disposition home or self-care (01) ==
LOC: H.ER 23:13
DX: E11.9 Type 2 diabetes mellitus without complications (principal); G40.909 Epilepsy, unspecified, not intractable, without status epilepticus; I10 Essential (primary) hypertension; Z91.19 Patient's noncompliance with other medical treatment and regimen; Z95.1 Presence of aortocoronary bypass graft; I25.10 Atherosclerotic heart disease of native coronary artery without angina pectoris; J44.9 Chronic obstructive pulmonary disease, unspecified

== ENCOUNTER 2018-01-30 16:00 | Emergency (ER) | payer OTHER ==
[2018-01-30 16:00] VITALS: BMI 30.4
[2018-01-30 16:25] VITALS: BP 138/76; PULSE 91; RESP 16; TEMP 98.8; O2SAT 98
--- NOTE | 2018-01-30 17:32 | ED PDOC ---
HPI: General Adult Time Seen by Provider: 01/30/18 17:15 Chief Complaint (Nursing): Dizziness/Lightheaded Chief Complaint (Provider): Dizziness/Lightheaded History Per: Patient History/Exam Limitations: no limitations Onset/Duration Of Symptoms: Days (x1) Current Symptoms Are (Timing): Still Present Additional Complaint(s): Alonzo Lafleur is a 47 year old male with a past medical history of seizure disorder and COPD who is presenting to the ED for evaluation of generalized weakness and tremors onset yesterday after he experienced an unwitnessed seizure. Seizure had unknown duration with unknown injury as patient is unable to provide history of seizure. He offers no other medical complaints at this time. PMD: none provided Past Medical History Reviewed: Historical Data, Nursing Documentation, Vital Signs Vital Signs: Last Vital Signs Temp 98.8 F 01/30/18 16:23 Pulse 91 H 01/30/18 16:23 Resp 16 01/30/18 16:23 BP 138/76 01/30/18 16:23 Pulse Ox 98 01/30/18 17:34 - Medical History PMH: Asthma, CAD, COPD, Diabetes, Emphysema, Fractures, HTN, Pneumonia, Seizures Denies: Hepatitis, HIV, Chronic Kidney Disease, Sexually Transmitted Disease - Surgical History Surgical History: CABG - Family History Family History: States: Unknown Family Hx - Social History Current smoker - smoking cessation education provided: Yes Alcohol: None Drugs: Cannabis - Immunization History Hx Tetanus Toxoid Vaccination: No Hx Influenza Vaccination: Yes Hx Pneumococcal Vaccination: No - Home Medications Home Medications: Ambulatory Orders Medication Instructions Recorded Albuterol HFA [Ventolin HFA 90 2 puff IH [id number] PRN #1 inhaler 02/24/17 mcg/actuation (8 g)] Phenytoin, Extended [Dilantin 100 mg PO TID #90 cer 05/24/17 Kapseals] Albuterol HFA [Ventolin HFA 90 1 puff IH ASDIR #1 unit 05/30/17 mcg/actuation (8 g)] Cyclobenzaprine [Cyclobenzaprine 10 mg PO TID PRN #20 tab 05/30/17 HCl] Naproxen [Naprosyn] 500 mg PO BID #20 tab 05/30/17 Nabumetone [Relafen] 500 mg PO BID #20 tab 06/18/17 Phenytoin, Extended [Dilantin 100 mg PO TID #90 tab 06/18/17 Kapseals] Albuterol HFA [Ventolin HFA 90 1 - 2 puff IH Q4 PRN #1 inhaler 06/19/17 mcg/actuation (8 g)] Albuterol HFA [Ventolin HFA 90 2 puff IH [id number] PRN #1 inhaler 06/19/17 mcg/actuation (8 g)] Ibuprofen [Motrin Tab] 600 mg PO Q6 PRN #15 tab 06/19/17 Penicillin VK [Penicillin VK Tab] 500 mg PO Q6H PRN #28 tab 06/19/17 Prednisone 50 mg PO DAILY #4 tab 06/19/17 Ibuprofen [Motrin] 600 mg PO Q8 PRN #21 tab 06/24/17 Phenytoin, Extended [Dilantin 100 mg PO TID #30 each 08/15/17 Kapseals] Ibuprofen [Motrin] 600 mg PO Q6 PRN #30 tab 08/29/17 Phenytoin, Extended [Dilantin 100 mg PO TID #90 tab 08/29/17 Kapseals] Phenytoin, Extended [Dilantin 100 mg PO TID #21 cer 09/07/17 Kapseals] Amoxicillin/Clavulanate [Augmentin 1 tab PO BID #14 tab 09/13/17 875 MG-125 MG] Amoxicillin/Potassium Clav 1 each PO BID #20 tablet 09/13/17 [Augmentin 500-125 Tablet] Ibuprofen [Motrin Tab] 800 mg PO Q8 PRN #20 tab 09/13/17 Amoxicillin/Clavulanate [Augmentin 1 tab PO BID #10 tab 09/18/17 875 MG-125 MG] Ibuprofen [Motrin Tab] 800 mg PO Q8 PRN #10 tab 09/18/17 Guaifenesin [Adult Tussin Chest 200 mg PO Q6H PRN #200 ml 09/29/17 Congestion] Ibuprofen [Motrin Tab] 600 mg PO QID PRN #20 tab 09/29/17 Benzonatate 200 mg PO TID PRN #30 capsule 10/03/17 Phenytoin, Extended [Dilantin 100 mg PO TID #90 tab 10/03/17 Kapseals] Meclizine [Antivert] 25 mg PO Q6 PRN #12 tab 12/16/17 - Allergies Allergies/Adverse Reactions: Allergies Allergy/AdvReac Type Severity Reaction Status Date / Time No Known Allergies Allergy Verified 01/30/18 16:23 Review of Systems ROS Statement: Except As Marked, All Systems Reviewed And Found Negative Neurological: Positive for: Weakness, Other (tremors) Physical Exam - Reviewed Nursing Documentation Reviewed: Yes Vital Signs Reviewed: Yes - Physical Exam Appears: Positive for: Non-toxic, No Acute Distress Head Exam: Positive for: ATRAUMATIC, NORMAL INSPECTION, NORMOCEPHALIC Skin: Positive for: Normal Color, Warm, DRY Eye Exam: Positive for: EOMI, Normal appearance, PERRL ENT: Positive for: Normal ENT Inspection Neck: Positive for: Normal, Painless ROM Cardiovascular/Chest: Positive for: Regular Rate, Rhythm. Negative for: Murmur Respiratory: Positive for: Normal Breath Sounds. Negative for: Respiratory Distress Gastrointestinal/Abdominal: Positive for: Normal Exam, Soft. Negative for: Tenderness Back: Positive for: Normal Inspection. Negative for: L CVA Tenderness, R CVA Tenderness Extremity: Positive for: Normal ROM. Negative for: Deformity, Swelling Neurologic/Psych: Positive for: Alert, Oriented. Negative for: Motor/Sensory Deficits - Laboratory Results Result Diagrams: 01/30/18 17:40 01/30/18 17:40 - ECG O2 Sat by Pulse Oximetry: 98 (RA) Pulse Ox Interpretation: Normal Medical Decision Making Medical Decision Making: Time: 17:25 Plan: --Alcohol Serum --CMP --Dilantin --Drug Screen --ED Urine Dipstick --CBC Scribe Attestation: Documented by Michelle Kiran, acting as a scribe for Felix Balderas MD. Provider Scribe Attestation: All medical record entries made by the Scribe were at my direction and personally dictated by me. I have reviewed the chart and agree that the record accurately reflects my personal performance of the history, physical exam, medical decision making, and the department course for this patient. I have also personally directed, reviewed, and agree with the discharge instructions and disposition. Disposition - Clinical Impression Clinical Impression: Epileptic seizures - Patient ED Disposition Is Patient to be Admitted: No - Disposition Disposition: Eloped Disposition Time: 18:39 Condition: FAIR Instructions: General (DC) Forms: [employer] (German)
[2018-01-30 17:50] LABS: BASO # 0.1 K/uL (0.0-0.2); EOS # 0.1 K/uL (0.0-0.7); EOS % 0.8 % (0.0-4.0); HEMOGLOBIN 15.1 g/dL (12.0-18.0); LYMPH # 1.6 K/uL (1.0-4.3); LYMPH % 22.3 % (20.0-40.0); MEAN CORPUSCULAR HEMOGLOBIN 31.9 pg (27.0-31.0); MEAN CORPUSCULAR HGB CONC 33.6 g/dL (33.0-37.0); MEAN PLATELET VOLUME 8.3 fl (7.2-11.7); MONO # 0.7 K/uL (0.0-0.8); NEUT # 4.9 K/uL (1.8-7.0); NEUT % 66.9 % (50.0-75.0); NRBC % 0.1 % (0.0-0.0); RBC 4.73 Mil/uL (4.40-5.90); RED CELL DISTRIBUTION WIDTH 14.1 % (11.5-14.5); WHITE BLOOD COUNT 7.3 K/uL (4.8-10.8)
[2018-01-30 18:06] LABS: BARBITURATES, UR NEGATIVE (NEGATIVE)
[2018-01-30 18:08] LABS: ALB/GLOB RATIO 1.3 (1.0-2.1); ALBUMIN 4.3 g/dL (3.5-5.0); ALT/SGPT 69 U/L (21-72); AST/SGOT 50 U/L (17-59); BENZODIAZEPINES, UR NEGATIVE (NEGATIVE); BLOOD UREA NITROGEN 21 mg/dl (9-20); CALCIUM 8.9 mg/dL (8.4-10.2); GFR NON-AFRICAN AMERICAN > 60; OPIATES, UR NEGATIVE (NEGATIVE); PHENCYCLIDINE, UR NEGATIVE (NEGATIVE)
[2018-01-30] MEDS ORDERED: Sodium Chloride 0.9% 1,000 ML IV STA (18:22)
== END 2018-01-30 18:59 | disposition left against medical advice (07) ==
LOC: H.ER 16:00
DX: G40.909 Epilepsy, unspecified, not intractable, without status epilepticus (principal); E11.9 Type 2 diabetes mellitus without complications; I10 Essential (primary) hypertension; Z95.1 Presence of aortocoronary bypass graft

== ENCOUNTER 2018-02-02 14:00 | Emergency (ER) | payer OTHER ==
[2018-02-02 14:02] VITALS: BMI 29.7
[2018-02-02 14:03] VITALS: PULSE 76
--- NOTE | 2018-02-02 15:11 | ED PDOC ---
HPI: Psych/Substance Abuse Time Seen by Provider: 02/02/18 14:15 Chief Complaint (Nursing): Medical Clearance Chief Complaint (Provider): Medical Clearance History Per: Patient History/Exam Limitations: no limitations Onset/Duration Of Symptoms: Days Current Symptoms Are (Timing): Better Associated Symptoms: denies: Suicidal Thoughts, Suicidal Plan Additional Complaint(s): 47 year old male who is under arrest presents to the ER for medical and psychiatric clearance. Reports he is due to take Dilantin 100mg which he takes TID. Patient offers no complaints. Also denies hallucinations, suicidal/ homicidal ideation. PMD: No Family Provider Past Medical History Reviewed: Historical Data, Nursing Documentation, Vital Signs Vital Signs: Last Vital Signs Temp 98.4 F 02/02/18 14:02 Pulse 76 02/02/18 14:02 Resp 20 02/02/18 14:02 BP 148/92 H 02/02/18 14:02 Pulse Ox 99 02/02/18 14:02 - Medical History PMH: Asthma, CAD, COPD, Diabetes, Emphysema, Fractures, HTN, Pneumonia, Seizures Denies: Hepatitis, HIV, Chronic Kidney Disease, Sexually Transmitted Disease - Surgical History Surgical History: CABG - Family History Family History: States: Unknown Family Hx - Immunization History Hx Tetanus Toxoid Vaccination: No Hx Influenza Vaccination: Yes Hx Pneumococcal Vaccination: No - Home Medications Home Medications: Ambulatory Orders Medication Instructions Recorded Albuterol HFA [Ventolin HFA 90 2 puff IH [id number] PRN #1 inhaler 02/24/17 mcg/actuation (8 g)] Phenytoin, Extended [Dilantin 100 mg PO TID #90 cer 05/24/17 Kapseals] Albuterol HFA [Ventolin HFA 90 1 puff IH ASDIR #1 unit 05/30/17 mcg/actuation (8 g)] Cyclobenzaprine [Cyclobenzaprine 10 mg PO TID PRN #20 tab 05/30/17 HCl] Naproxen [Naprosyn] 500 mg PO BID #20 tab 05/30/17 Nabumetone [Relafen] 500 mg PO BID #20 tab 06/18/17 Phenytoin, Extended [Dilantin 100 mg PO TID #90 tab 06/18/17 Kapseals] Albuterol HFA [Ventolin HFA 90 1 - 2 puff IH Q4 PRN #1 inhaler 06/19/17 mcg/actuation (8 g)] Albuterol HFA [Ventolin HFA 90 2 puff IH [id number] PRN #1 inhaler 06/19/17 mcg/actuation (8 g)] Ibuprofen [Motrin Tab] 600 mg PO Q6 PRN #15 tab 06/19/17 Penicillin VK [Penicillin VK Tab] 500 mg PO Q6H PRN #28 tab 06/19/17 Prednisone 50 mg PO DAILY #4 tab 06/19/17 Ibuprofen [Motrin] 600 mg PO Q8 PRN #21 tab 06/24/17 Phenytoin, Extended [Dilantin 100 mg PO TID #30 each 08/15/17 Kapseals] Ibuprofen [Motrin] 600 mg PO Q6 PRN #30 tab 08/29/17 Phenytoin, Extended [Dilantin 100 mg PO TID #90 tab 08/29/17 Kapseals] Phenytoin, Extended [Dilantin 100 mg PO TID #21 cer 09/07/17 Kapseals] Amoxicillin/Clavulanate [Augmentin 1 tab PO BID #14 tab 09/13/17 875 MG-125 MG] Amoxicillin/Potassium Clav 1 each PO BID #20 tablet 09/13/17 [Augmentin 500-125 Tablet] Ibuprofen [Motrin Tab] 800 mg PO Q8 PRN #20 tab 09/13/17 Amoxicillin/Clavulanate [Augmentin 1 tab PO BID #10 tab 09/18/17 875 MG-125 MG] Ibuprofen [Motrin Tab] 800 mg PO Q8 PRN #10 tab 09/18/17 Guaifenesin [Adult Tussin Chest 200 mg PO Q6H PRN #200 ml 09/29/17 Congestion] Ibuprofen [Motrin Tab] 600 mg PO QID PRN #20 tab 09/29/17 Benzonatate 200 mg PO TID PRN #30 capsule 10/03/17 Phenytoin, Extended [Dilantin 100 mg PO TID #90 tab 10/03/17 Kapseals] Meclizine [Antivert] 25 mg PO Q6 PRN #12 tab 12/16/17 - Allergies Allergies/Adverse Reactions: Allergies Allergy/AdvReac Type Severity Reaction Status Date / Time No Known Allergies Allergy Verified 02/02/18 14:14 Review of Systems ROS Statement: Except As Marked, All Systems Reviewed And Found Negative Psych: Negative for: Suicidal ideation (homicidal ideation) Physical Exam - Reviewed Nursing Documentation Reviewed: Yes Vital Signs Reviewed: Yes - Physical Exam Appears: Positive for: Non-toxic, No Acute Distress Head Exam: Positive for: ATRAUMATIC, NORMAL INSPECTION, NORMOCEPHALIC Skin: Positive for: Normal Color, Warm, Dry Eye Exam: Positive for: EOMI, Normal appearance, PERRL ENT: Positive for: Normal ENT Inspection Neck: Positive for: Normal, Painless ROM, Supple. Negative for: Decreased ROM Cardiovascular/Chest: Positive for: Regular Rate, Rhythm. Negative for: Murmur Respiratory: Positive for: Normal Breath Sounds. Negative for: Decreased Breath Sounds, Wheezing, Respiratory Distress Gastrointestinal/Abdominal: Positive for: Normal Exam, Bowel Sounds, Soft. Negative for: Tenderness, Guarding, Rebound Back: Positive for: Normal Inspection. Negative for: L CVA Tenderness, R CVA Tenderness Extremity: Positive for: Normal ROM. Negative for: Tenderness, Pedal Edema, Deformity Neurologic/Psych: Positive for: Alert, Oriented (x3). Negative for: Motor/ Sensory Deficits - ECG O2 Sat by Pulse Oximetry: 99 (RA) Pulse Ox Interpretation: Normal Medical Decision Making Medical Decision Making: Time: 1431 Initial Plan: --Dilantin 100mg --Reevaluation Scribe Attestation: Documented by Charlie Arias, acting as a scribe for Nate Greco PA-C. Provider Scribe Attestation: All medical record entries made by the Scribe were at my direction and personally dictated by me. I have reviewed the chart and agree that the record accurately reflects my personal performance of the history, physical exam, medical decision making, and the department course for this patient. I have also personally directed, reviewed, and agree with the discharge instructions and disposition. Disposition - Clinical Impression Clinical Impression: Medical clearance for incarceration - Patient ED Disposition Is Patient to be Admitted: No - Disposition Referrals: [facility] [Outside] Disposition: Routine/Home Disposition Time: 14:31 Condition: STABLE Additional Instructions: PATIENT IS MEDICALLY AND PSYCHIATRICALLY CLEARED FOR INCARCERATION Instructions: General (DC) Forms: [employer] (Kinyarwanda) Print Language: GEORGIAN
[2018-02-02 15:31] VITALS: BP 130/88; RESP 18; TEMP 98.1
[2018-02-02 18:26] VITALS: O2SAT 99
== END 2018-02-02 15:20 | disposition home or self-care (01) ==
LOC: H.ER 14:00
DX: E11.9 Type 2 diabetes mellitus without complications; I10 Essential (primary) hypertension; I25.10 Atherosclerotic heart disease of native coronary artery without angina pectoris; Z95.1 Presence of aortocoronary bypass graft; J44.9 Chronic obstructive pulmonary disease, unspecified